=== PATIENT | female | born 1950 | race Caucasian/White ===

== ENCOUNTER → 2023-12-05 13:04 | Outpatient (ROUT) | payer MEDICARE, SELFPAY ==
[2023-12-05 13:17] LABS: Appearance Urine UA CLEAR; Bilirubin Urine UA NEGATIVE (NEGATIVE); Color Urine UA YELLOW; Glucose Urine UA NEGATIVE (Negative); Ketones Urine UA NEGATIVE (NEGATIVE); Leukocyte Esterase Urine UA 1+ (NEGATIVE); Nitrite Urine UA NEGATIVE (Negative); Occult Blood Urine UA NEGATIVE (Negative); Protein Urine UA TRACE (Negative); Urobilinogen Urine UA 0.2 E.U./dL (0.2)
[2023-12-05 13:18] LABS: Urine Volume 10mL (spun); pH Urine UA 5.5 (4.5-8.0)
[2023-12-05 13:25] LABS: Bacteria Urine Moderate (10-30); Culture Indicated Urine Specimen Cultured; RBC Urine None Seen (0-5/HPF); Squamous Epithelial Cell Urine 1-5 /HPF (0-5/HPF); WBC Urine 10-30/HPF (0-5/HPF)
== END ==
PROVIDERS: Visit Provider Family Medicine
DX: R30.0 Dysuria (principal)
CPT/HCPCS: 81001; 87086

== ENCOUNTER 2023-12-31 15:17 | Emergency (ER) | payer MEDICARE, MEDICAID, SELFPAY ==
[2023-12-31] VITALS (31 sets, daily range): BP systolic 96–139; BP diastolic 52–67; PULSE 73–121; RESP 13–41; TEMP 37.2–38.7; O2SAT 89–96; BMI 21.4
[2023-12-31] MEDS: CARBIDOPA-LEVODOPA 25/100 TABLET 2 EACH PO ×2 (16:59→19:33)
[2023-12-31 17:31] LABS: Appearance Urine UA CLEAR; Bilirubin Urine UA NEGATIVE (NEGATIVE); Color Urine UA YELLOW; Glucose Urine UA NEGATIVE (Negative); Ketones Urine UA NEGATIVE (NEGATIVE); Leukocyte Esterase Urine UA 3+ (NEGATIVE); Nitrite Urine UA NEGATIVE (Negative); Occult Blood Urine UA NEGATIVE (Negative); Protein Urine UA NEGATIVE (Negative); Specific Gravity Urine UA 1.015 (1.000-1.035)
--- NOTE | 2023-12-31 17:58 | DI.RAD.S_ITS ---
PROCEDURE: XR CHEST 1V INDICATIONS: suspected sepsis TECHNIQUE: One view of the chest was acquired. COMPARISON: Prior exams were unable to be archived at time of exam. FINDINGS: Surgical changes and devices: Monitoring device is present overlying the left hemithorax with cephalad leads. Lungs and pleura: Lungs are clear. No pleural effusions or pneumothorax. Mediastinum: Mediastinal contours appear normal. Heart size is mildly enlarged. Bones and chest wall: No suspicious bony lesions. Overlying soft tissues appear unremarkable. IMPRESSION: No acute pulmonary process. Dictated by: Kay Jimenez M.D. on 12/31/2023 at 18:52 Approved by: Kay Jimenez M.D. on 12/31/2023 at 18:53
[2023-12-31] MEDS: SODIUM CHLORIDE 0.9% 1,000 ML 1000 ML IV ×2 (18:01→18:38)
[2023-12-31 18:10] LABS: Bacteria Urine Many (>30); Culture Indicated Urine Specimen Cultured; RBC Urine 1-5/HPF (0-5/HPF); Squamous Epithelial Cell Urine 0-1 /HPF (0-5/HPF); Urine Volume 10mL (spun); WBC Urine >100/HPF (0-5/HPF); White Blood Cell Casts Urine 1-5/LPF
[2023-12-31 18:13] LABS: Add Manual Diff / Slide Review NO; Basophils Absolute Auto 0 /uL (0-100); Basophils Percent Auto 0.5 % (0-2); Eosinophils Absolute Auto 300 /uL (0-450); Eosinophils Percent Auto 4.9 % (2-4); Hematocrit 39.3 % (36-46); Lymphocytes Absolute Auto 1800 /uL (1100-4500); Mean Corpuscular HGB Conc 33.1 % (30-36); Mean Corpuscular Volume 93.8 fL (80-100); Monocytes Absolute Auto 600 /uL (0-900); Monocytes Percent Auto 8.9 % (3-14); Neutrophils Absolute Auto 4100 /uL (1500-7000); Neutrophils Percent Auto 59.7 % (50-75); Platelet Count 239 X10^3/uL (150-400); Red Blood Cell Count 4.19 X10^6/uL (4.0-5.2); Red Cell Distribution Width 13.6 % (11.6-14.8); White Blood Cell Count 6.9 X10^3/uL (4.5-11.0)
[2023-12-31 18:14] LABS: INR 0.9 (0.9-1.3); Prothrombin Time 10.7 SECONDS (9.4-12.5)
[2023-12-31 18:17] LABS: Lactate (Lactic Acid) 2.7 mmol/L (0.7-2.1); PTT Partial Thromboplastin Tim 29 SECONDS (25.1-36.5)
[2023-12-31 18:18] LABS: Alanine Aminotransferase 11 IU/L (<35); Albumin 4.3 g/dL (3.5-5.0); Albumin Globulin Ratio 1.5 (1.0-2.8); Alkaline Phosphatase 90 U/L (38-126); Aspartate Aminotransferase 23 IU/L (14-36); BUN Creatinine Ratio 28.8 (6-22); Bilirubin Total 0.7 mg/dL (0.2-1.3); Blood Urea Nitrogen 17 mg/dL (7-17); Calcium 9.5 mg/dL (8.4-10.2); Carbon Dioxide 23 mmol/L (22-32); Chloride 106 mmol/L (98-107); Estimated Glomerular Filt Rate > 60 mL/min (>60); Globulin 2.9 g/dL (1.7-4.1); Glucose 125 mg/dL (80-110); HEMOLYSIS 23 (0-50); Lipase 180 U/L (23-300); Sodium 139 mmol/L (137-145); Total Protein 7.2 g/dL (6.3-8.2)
[2023-12-31] MEDS: ACETAMINOPHEN 325 MG TABLET 650 MG PO (18:27)
--- NOTE | 2023-12-31 18:30 | EKG_ITS ---
[address] [address] Test Date: 2023-12-31 Pat Name: Carissa Evans Department: [facility] Room: Gender: Female Frickertron Checker: CHRISTIAN : 1950 Requested By: Order Number: [id number] Reading MD: Epifanio Fink Measurements Intervals [place] Rate: 107 P: 51 [place]: 134 QRS: 24 QRSD: 82 T: 22 QT: 462 QTc: 616 Interpretive Statements Critical Test Result: Long QTc Sinus tachycardia with occasional premature ventricular complexes Prolonged QT Electronically Signed On 01-07-2024 9:04:31 PDT by Epifanio Fink
[2023-12-31 18:35] LABS: Procalcitonin 0.043 ng/mL (<0.5)
--- NOTE | 2023-12-31 18:43 | ED_ITS ---
HPI - General Adult General Chief complaint: Urogenital-Female Stated complaint: vaginal pain Time Seen by Provider: 12/31/23 18:07 Source: patient and EMS Mode of arrival: EMS History of Present Illness HPI narrative: Patient lives in the assisted living facility. History of Parkinson's with a deep brain stimulator. The stimulator was apparently charging and when it was turned back on again she had stabbing feeling in her vagina. Staff is concerned that she may have a urinary tract infection. Patient seems slightly confused is able to cooperate with exam. She is altered enough that complete review of system is challenging Related Data Home Medications Medication Instructions Recorded Confirmed carbidopa ER 25 mg-levodopa 100 mg 2 tab PO TID 12/31/23 12/31/23 tablet,extended release Previous Rx's Medication Instructions Recorded cephalexin 500 mg capsule 500 mg PO TID #15 caps 12/31/23 Allergies Allergy/AdvReac Type Severity Reaction Status Date / Time Penicillins Allergy Intermediate Hives Verified 12/31/23 15:25 Sulfa (Sulfonamide Allergy Verified 12/31/23 15:25 Antibiotics) Review of Systems Review of Systems ROS Unobtainable: Unobtainable due to mental status/LOC Patient History Medical History (Updated 12/31/23 @ 22:52 by Layla Faith MD) Parkinson's disease Social History (System 12/06/23 @ 07:43 by Laura Avelar) Smoking Status: Former smoker Smoking Status: Former smoker Substance Use Type: does not use Exam Initial Vital Signs Initial Vital Signs: Vital Signs Temperature 98.9 F 12/31/23 15:25 Pulse Rate 108 H 12/31/23 15:25 Respiratory Rate 18 12/31/23 15:25 Blood Pressure 136/63 12/31/23 15:25 Pulse Oximetry 95 12/31/23 15:25 Oxygen Delivery Method Room Air 12/31/23 15:25 General: Frail, chronically ill-appearing woman in no acute distress, picking at bedding, poor eye contact slight confusion able to answer direct questions HEENT: Moist mucous membranes, normal sclera with reactive pupils, Neck: No JVD, supple Respiratory: Lungs are clear to auscultation, no wheezing no rales no rhonchi. Full and symmetrical air movement Cardiac: Tachycardic but otherwise Regular rate and rhythm no murmurs no bruits Abdomen: Soft, mild diffuse tenderness without rebound or guarding. Question of left-sided flank pain External genitalia is evaluated. No obvious rashes, vaginal discharge, inguinal adenopathy Skin: Pale but otherwise Warm and dry, no rashes Neurologic: Patient is moving all extremities. She is baseline parkinsonian tremor Extremities: No trauma, well perfused Psych: Cooperative, slightly confused, poor eye contact Course Orders Ordered: ED Orders 12/31/23 15:24 CBC Auto Diff [Complete Blood Count AUTO DIFF] Stat CMP [Comprehensive Metabolic Panel] Stat Lactate (Lactic Acid) Stat Lipase Stat PTT Partial Thromboplastin Dk Stat Procalcitonin Stat Prothrombin Time INR Stat 12/31/23 16:38 Urinalysis and Microscopic Stat Urine Culture Stat 12/31/23 17:58 XR chest 1V Stat EKG-12 Lead Stat RT Consult Eval and Treat NOW 12/31/23 18:15 Blood Culture Stat 12/31/23 19:10 CT abdomen pelvis w con Stat Hydromorphone HCl (Hydromorphone 0.5 Mg Inj) 0.5 mg IV Q15MIN PRN PRN Reason: Pain, Last Admin: 12/31/23 19:20 Dose: 0.5 mg Documented By: RB Ondansetron HCl (Ondansetron 4 Mg Odt) 4 mg SL NOW PRN PRN Reason: Nausea And Vomiting Discontinued Medications Acetaminophen (Acetaminophen 325 Mg Tablet) 650 mg PO NOW ONE Stop: 12/31/23 18:14 Last Admin: 12/31/23 18:27 Dose: 650 mg Documented By: RB Carbidopa/Levodopa (Carbidopa-Levodopa 25/100 Tablet) 2 each PO NOW ONE Stop: 12/31/23 16:27 Last Admin: 12/31/23 16:59 Dose: 2 each Documented By: RB Carbidopa/Levodopa (Carbidopa-Levodopa 25/100 Tablet) 2 each PO NOW ONE Stop: 12/31/23 19:16 Last Admin: 12/31/23 19:33 Dose: 2 each Documented By: AB Sodium Chloride (Normal Saline 0.9%) 1,000 mls @ 1,000 mls/hr IV BOLUS ONE Stop: 12/31/23 18:57 Last Infusion: 12/31/23 18:38 Dose: Infused Documented By: Admin: 12/31/23 18:01 Dose: 1,000 mls/hr Documented By: RB Sodium Chloride (Normal Saline 0.9%) 1,000 mls @ 1,000 mls/hr IV BOLUS ONE Stop: 12/31/23 19:12 Last Infusion: 12/31/23 20:00 Dose: Infused Documented By: Admin: 12/31/23 18:38 Dose: 1,000 mls/hr Documented By: MARIN Ceftriaxone Sodium 2,000 mg/ (Sodium Chloride) 100 mls @ 200 mls/hr IV NOW ONE Stop: 12/31/23 18:48 Last Infusion: 12/31/23 19:45 Dose: Infused Documented By: Admin: 12/31/23 19:09 Dose: 200 mls/hr Documented By: MARIN Ondansetron HCl (Ondansetron 4 Mg/2 Ml Inj) 4 mg IV NOW PRN PRN Reason: Nausea And Vomiting Last Admin: 12/31/23 19:20 Dose: 4 mg Documented By: MARIN Vital Signs Vital signs: Vital Signs - 8 hr 12/31/23 15:25 12/31/23 15:42 12/31/23 15:46 Temperature 98.9 F Pulse Rate 108 H 95 H 93 H Respiratory Rate 18 15 Blood Pressure 136/63 Pulse Oximetry 95 95 94 Oxygen Delivery Method Room Air 12/31/23 15:46 12/31/23 16:00 12/31/23 16:00 Temperature Pulse Rate 85 Respiratory Rate 13 Blood Pressure 105/52 L 96/53 L Pulse Oximetry 95 Oxygen Delivery Method 12/31/23 16:30 12/31/23 16:32 12/31/23 16:32 Temperature Pulse Rate 86 87 Respiratory Rate 14 22 Blood Pressure 107/54 L Pulse Oximetry 95 95 Oxygen Delivery Method 12/31/23 16:48 12/31/23 16:48 12/31/23 17:07 Temperature Pulse Rate 93 H 99 H Respiratory Rate 18 22 Blood Pressure 132/60 Pulse Oximetry 95 89 L Oxygen Delivery Method 12/31/23 17:30 12/31/23 18:00 12/31/23 18:15 Temperature 101.6 F H Pulse Rate 114 H 121 H 108 H Respiratory Rate 41 H 21 Blood Pressure Pulse Oximetry 94 94 96 Oxygen Delivery Method 12/31/23 18:30 12/31/23 18:34 12/31/23 18:34 Temperature Pulse Rate 107 H 107 H Respiratory Rate 25 H Blood Pressure 139/67 Pulse Oximetry 93 94 Oxygen Delivery Method 12/31/23 18:44 12/31/23 18:45 12/31/23 18:45 Temperature 99.1 F Pulse Rate 101 H Respiratory Rate Blood Pressure 123/64 Pulse Oximetry 94 Oxygen Delivery Method 12/31/23 19:00 12/31/23 19:00 12/31/23 19:15 Temperature Pulse Rate 94 H Respiratory Rate Blood Pressure 129/62 132/61 Pulse Oximetry 94 Oxygen Delivery Method 12/31/23 19:15 12/31/23 19:16 12/31/23 19:30 Temperature 98.9 F Pulse Rate 88 Respiratory Rate Blood Pressure 131/60 Pulse Oximetry 96 Oxygen Delivery Method 12/31/23 19:30 12/31/23 19:46 12/31/23 20:00 Temperature Pulse Rate 86 83 87 Respiratory Rate Blood Pressure Pulse Oximetry 95 93 Oxygen Delivery Method 12/31/23 20:15 12/31/23 20:30 12/31/23 20:45 Temperature Pulse Rate 87 83 82 Respiratory Rate Blood Pressure Pulse Oximetry 96 96 95 Oxygen Delivery Method 12/31/23 21:00 12/31/23 21:15 12/31/23 21:30 Temperature Pulse Rate 82 81 78 Respiratory Rate Blood Pressure Pulse Oximetry 95 96 96 Oxygen Delivery Method 12/31/23 21:45 Temperature Pulse Rate 73 Respiratory Rate Blood Pressure Pulse Oximetry 95 Oxygen Delivery Method Room Air Medical Decision Making Lab Data 12/31/23 15:24 12/31/23 15:24 Labs: Lab Results 12/31/23 12/31/23 12/31/23 Range/Units 15:24 16:38 20:15 WBC 6.9 (4.5-11.0) X10^3/uL RBC 4.19 (4.0-5.2) X10^6/uL Hgb 13.0 (12.0-16.0) g/dL Hct 39.3 (36-46) % MCV 93.8 (80-100) fL MCH 31.0 (26-34) PG MCHC 33.1 (30-36) % RDW 13.6 (11.6-14.8) % Plt Count 239 (150-400) X10^3/uL Neut % (Auto) 59.7 (50-75) % Lymph % (Auto) 26.0 (25-40) % Mcdonald % (Auto) 8.9 (3-14) % Eos % (Auto) 4.9 H (2-4) % Baso % (Auto) 0.5 (0-2) % Neut # (Auto) 4100 (7080-2179) /uL Lymph # (Auto) 1800 (2778-2399) /uL Mcdonald # (Auto) 600 (0-900) /uL Eos # (Auto) 300 (0-450) /uL Baso # (Auto) 0 (0-100) /uL PT 10.7 (9.4-12.5) SECONDS INR 0.9 (0.9-1.3) APTT 29 (25.1-36.5) SECONDS Sodium 139 (137-145) mmol/L Potassium 4.0 (3.4-5.1) mmol/L Chloride 106 (98-107) mmol/L Carbon Dioxide 23 (22-32) mmol/L BUN 17 (7-17) mg/dL Creatinine 0.59 (0.52-1.04) mg/dL Estimated GFR > 60 (>60) mL/min BUN/Creatinine Ratio 28.8 H (6-22) Glucose 125 H (80-110) mg/dL Lactate 2.7 H 1.5 (0.7-2.1) mmol/L Calcium 9.5 (8.4-10.2) mg/dL Total Bilirubin 0.7 (0.2-1.3) mg/dL AST 23 (14-36) IU/L ALT 11 (<35) IU/L Alkaline Phosphatase 90 (38-126) U/L Total Protein 7.2 (6.3-8.2) g/dL Albumin 4.3 (3.5-5.0) g/dL Globulin 2.9 (1.7-4.1) g/dL Albumin/Globulin Ratio 1.5 (1.0-2.8) Lipase 180 (23-300) U/L Procalcitonin 0.043 (<0.5) ng/mL Urine Color Yellow Urine Appearance Clear Urine pH 6.0 (4.5-8.0) Ur Specific [place] 1.015 (1.000-1.035) Urine Protein Negative (Negative) Urine Glucose (UA) Negative (Negative) g/dL Urine Ketones Negative (NEGATIVE) Urine Occult Blood Negative (Negative) Urine Nitrate Negative (Negative) Urine Bilirubin Negative (NEGATIVE) Urine Urobilinogen 1.0 (0.2) E.U./dL Ur Leukocyte Esterase 3+ H (NEGATIVE) Urine RBC 1-5/hpf (0-5/HPF) Urine WBC >100/hpf H (0-5/HPF) Ur Squamous Epith Cells 0-1 /hpf (0-5/HPF) Urine Bacteria Many (>30) H (None) WBC Casts 1-5/lpf H (None) Ur Culture Indicated? Specimen cultured Vol Urine Centrifuged 10ml (spun) Imaging Data CT scan - abdomen/pelvis: Radiologist's Impression: PROCEDURE: CT ABDOMEN PELVIS W CON INDICATIONS: Low abdominal pain, acute delirium, tachycardic fever TECHNIQUE: After the administration of intravenous contrast, axial sections acquired from the lung bases to the pubic symphysis. Coronal and sagittal reformats were performed. For radiation dose reduction, the following was used: automated exposure control, adjustment of mA and/or kV according to patient size. COMPARISON: CT, CT ABDOMEN PELVIS WITH CONTRAST, 12/16/2018, 19:06. FINDINGS: Image quality: Diagnostic. Lower Chest: No significant findings. ABDOMEN: Liver: No solid mass. Liver measures 17.7 cm. Gallbladder: No radiopaque gallstones or wall thickening. Biliary ducts: No biliary dilation. Pancreas: No ductal dilation. Spleen: Size is within normal limits. Adrenal Glands: No adrenal nodules. Kidneys and Ureters: No hydronephrosis. No solid mass. No complex renal cystic lesion which requires follow up. Nonobstructing right renal calculus. Bilateral simple renal cysts. Stomach and Bowel: Normal colonic caliber, without significant wall thickening. Diverticular present without inflammatory change. Moderate colonic stool. Peritoneum: No abnormal intraperitoneal fluid. No free air. Ventral Wall: No significant ventral hernia. Abdominal Nodes: No retroperitoneal or mesenteric adenopathy by size criteria. Vessels: Aorta and inferior vena cava are normal in size. PELVIS: Pelvic Organs: Unremarkable. Bladder: No bladder wall thickening, accounting for underdistention. Pelvic Nodes: No enlarged lymph nodes. Miscellaneous: No inguinal hernias are seen. Bones: No aggressive osseous abnormality. T12 superior endplate deformity appearing chronic. IMPRESSION: Moderate colonic stool. Diverticulosis. Dictated by: Kay Jimenez M.D. on 12/31/2023 at 20:24 MDM Narrative Medical decision making narrative: CC: Vaginal pain after Parkinson's deep brain stimulator restarted, question urinary tract infection Complicating co-morbidities: Parkinson's disease Data collected from: patient, report from staff at her assisted living facility Social determinants of health that may influence the patients condition: Currently lives at assisted living facility Medical records reviewed: Medical records are unavailable Differential considered: UTI, vaginitis, sepsis, intra-abdominal abscess Exam documented above, pertinent findings include: Confused, low abdominal pain Lab Test results independently reviewed as above. Pertinent findings: CBC does not show significant leukocytosis nor anemia Coagulation studies are appropriate Metabolic panel shows no dramatic abnormalities Lactic is elevated at 2.7 Lipase is unremarkable Procalcitonin is appropriate Urine shows white cells bacteria leukocyte esterase Independently reviewed EKG: Sinus rhythm at a rate of 107, long QTC at 6:16 a.m.. PVCs appreciated no acute ischemic changes Imaging studies independently reviewed: Chest x-ray shows stimulator in place no obvious infiltrates, no obvious congestive heart failure cardiomegaly CT scan of the abdomen is done due to the tachycardia and fever appreciated on arrival in the emergency department. CT scan is unremarkable Treatments: Fluids, Zofran, Dilaudid, oral carbidopa levodopa, Tylenol when she spiked a fever, ceftriaxone is added Re-evaluations: While in the emergency department, patient became increasingly tachycardic, febrile lab workup for sepsis was expanded. Prior to discharge patient is much more cognitively appropriate able to interact answer additional questions and understands workup and diagnosis. Discussion: 73-year-old woman with Parkinson's disease brain stimulator in place, on carbidopa levodopa with increased vaginal pain after the brain stimulator battery was charged restarted today. Urine sample does suggest urinary tract infection and she has been treated with ceftriaxone. There was no evidence of sepsis. She is responded to Tylenol. At this point she does appear back to her baseline in his safe for discharge home. We will have her complete 5 days of cephalexin prescription is written. Recommended Tylenol for fever or pain control and return to the emergency department if symptoms are worsening that this point there is no evidence of intra-abdominal abscess, severe sepsis, electrolyte abnormalities or alternate explanations that would require additional imaging or hospitalization. Discharge Plan Departure Patient Disposition: Home Clinical Impression: Prolonged Q-T interval on ECG Urinary tract infection Qualifiers: Urinary tract infection type: acute cystitis Hematuria presence: with hematuria Qualified Code(s): N30.01 - Acute cystitis with hematuria Parkinson's disease Qualifiers: Dyskinesia presence: without dyskinesia Fluctuating manifestations: with fluctuating manifestations Qualified Code(s): G20.A2 - Parkinson's disease without dyskinesia, with fluctuations Instructions: DI for Urinary Tract Infection (UTI) Activity Restrictions/Additional Instructions: Thank you for coming in today You do have a bladder infection. You are given initial antibiotics in the emergency department and do need to complete 5 additional days of cephalexin. While in the emergency department you developed a significant fever with concurrent elevation in your heart rate. Possibility of sepsis was entertained however blood work does not suggest this. With those additional findings CT scan of your abdomen was done and you do not have any evidence of abscess, acute surgical findings or kidney infection. Please make sure that you do complete the cephalexin. If you are having worsening symptoms or new findings please return to the emergency department Prescriptions: New cephalexin 500 mg capsule 500 mg PO TID Qty: 15 0RF No Action carbidopa-levodopa 25-100 mg tablet extended release 2 tab PO TID Stand Alone Forms: Patient Portal/API
[2023-12-31] MEDS: cefTRIAXone 2,000 MG in SODIUM CHLORIDE 0.9% 100 ML 200 MG IV (19:09)
--- NOTE | 2023-12-31 19:10 | DI.CT.S_ITS ---
PROCEDURE: CT ABDOMEN PELVIS W CON INDICATIONS: Low abdominal pain, acute delirium, tachycardic fever TECHNIQUE: After the administration of intravenous contrast, axial sections acquired from the lung bases to the pubic symphysis. Coronal and sagittal reformats were performed. For radiation dose reduction, the following was used: automated exposure control, adjustment of mA and/or kV according to patient size. COMPARISON: CT, CT ABDOMEN PELVIS WITH CONTRAST, 12/16/2018, 19:06. FINDINGS: Image quality: Diagnostic. Lower Chest: No significant findings. ABDOMEN: Liver: No solid mass. Liver measures 17.7 cm. Gallbladder: No radiopaque gallstones or wall thickening. Biliary ducts: No biliary dilation. Pancreas: No ductal dilation. Spleen: Size is within normal limits. Adrenal Glands: No adrenal nodules. Kidneys and Ureters: No hydronephrosis. No solid mass. No complex renal cystic lesion which requires follow up. Nonobstructing right renal calculus. Bilateral simple renal cysts. Stomach and Bowel: Normal colonic caliber, without significant wall thickening. Diverticular present without inflammatory change. Moderate colonic stool. Peritoneum: No abnormal intraperitoneal fluid. No free air. Ventral Wall: No significant ventral hernia. Abdominal Nodes: No retroperitoneal or mesenteric adenopathy by size criteria. Vessels: Aorta and inferior vena cava are normal in size. PELVIS: Pelvic Organs: Unremarkable. Bladder: No bladder wall thickening, accounting for underdistention. Pelvic Nodes: No enlarged lymph nodes. Miscellaneous: No inguinal hernias are seen. Bones: No aggressive osseous abnormality. T12 superior endplate deformity appearing chronic. IMPRESSION: Moderate colonic stool. Diverticulosis. Dictated by: Kay Jimenez M.D. on 12/31/2023 at 20:24 Approved by: Kay Jimenez M.D. on 12/31/2023 at 20:26
[2023-12-31] MEDS: ONDANSETRON 4 MG/2 ML INJ IV (19:20)
[2023-12-31] MEDS: HYDROMORPHONE 0.5 MG INJ IV (19:20)
[2023-12-31 19:43] LABS: Reflexed Lactate in 2 Hours Y
[2023-12-31 20:54] LABS: Lactate 2HR (Lactic Acid Rflx) 1.5 mmol/L (0.7-2.1)
--- NOTE | 2023-12-31 23:28 | PC.NURSE ---
Pt given crackers and apple juice per her request. Assisted pt to call cab to return to [facility]. [facility] did not have a electric train driver, and her POA is over in [place] it is over 40 minutes away. Pt states she will pay with her credit card.
== END 2023-12-31 23:30 | disposition home or self-care (01) ==
PROVIDERS: Emergency Medicine; Emergency Provider Emergency Medicine
DX: N30.01 Acute cystitis with hematuria (principal); G20.A2 Parkinson's disease without dyskinesia, with fluctuations; R94.31 Abnormal electrocardiogram [ECG] [EKG]
CPT/HCPCS: 36415; 51701; 71045; 74177; 80053; 81001; 83605; 83690; 84145; 85025; 85610; 85730; 87040; 87077; 87086; 93005; 96361; 96365; 96375; 99284; J0696; J1170; J2405; Q9967

== ENCOUNTER 2024-01-01 22:52 | Emergency (ER) | payer MEDICARE, SELFPAY ==
[2024-01-01 23:02] VITALS: BP 130/70; PULSE 90; RESP 22; TEMP 36.6; O2SAT 97; BMI 23.4
--- NOTE | 2024-01-01 23:22 | ED_ITS ---
HPI - General Adult General Chief complaint: Fever Stated complaint: known UTI/feels worse/febrile/shakey Time Seen by Provider: 01/01/24 23:02 Source: patient and EMS Mode of arrival: EMS History of Present Illness HPI narrative: Patient is a 73-year-old female. Has a history of Parkinson's disease. Was seen here in the emergency department yesterday. Was diagnosed with a urinary tract infection. He was given antibiotics here in the ER and also sent home with antibiotics. She was sent home with Keflex. She states that after she took a dose of the Keflex this evening/earlier today she stated that she started to become shaky, she was having quite a bit of pain in her vaginal region. Quite a bit of dysuria and hesitancy. Was reported to have fevers at her living facility but was afebrile here. Related Data Home Medications Medication Instructions Recorded Confirmed carbidopa ER 25 mg-levodopa 100 mg 2 tab PO TID 12/31/23 12/31/23 tablet,extended release Previous Rx's Medication Instructions Recorded cephalexin 500 mg capsule 500 mg PO TID #15 caps 12/31/23 nitrofurantoin 100 mg PO Q12H 5 days #10 caps 01/02/24 monohydrate/macrocrystals 100 mg capsule (Macrobid) Allergies Allergy/AdvReac Type Severity Reaction Status Date / Time Penicillins Allergy Intermediate Hives Verified 12/31/23 15:25 Sulfa (Sulfonamide Allergy Verified 12/31/23 15:25 Antibiotics) Review of Systems Review of Systems ROS Unobtainable: All systems reviewed & are unremarkable except as noted in HPI and below Patient History Medical History Parkinson's disease Social History Smoking Status: Former smoker Smoking Status: Former smoker Substance Use Type: does not use Exam Initial Vital Signs Initial Vital Signs: Vital Signs Temperature 97.9 F 01/01/24 23:02 Pulse Rate 90 01/01/24 23:02 Respiratory Rate 22 01/01/24 23:02 Blood Pressure 130/70 01/01/24 23:02 Pulse Oximetry 97 01/01/24 23:02 Oxygen Delivery Method Room Air 01/01/24 23:02 Const General: cooperative, comfortable and No ill appearing [facility] Head: normal to inspection and normocephalic Resp Effort & Inspection: normal respiratory effort Auscultation: clear to auscultation bilaterally Cardio Rate: regular rate Rhythm: regular rhythm GI Inspection: non-distended Palpation: soft and No tender Skin General: no rashes or lesions noted Neuro General: patient alert, patient awake and moves all extremities Extrem General: capillary refill normal Course Orders Ordered: ED Orders 01/01/24 22:59 Blood Culture Stat 01/01/24 23:11 Complete Blood Count AUTO DIFF Stat Comprehensive Metabolic Panel Stat Lactate (Lactic Acid) Stat Lipase Stat Procalcitonin Stat Discontinued Medications Hydromorphone HCl (Hydromorphone 0.5 Mg Inj) 0.5 mg IV NOW ONE Stop: 01/01/24 23:23 Last Admin: 01/01/24 23:26 Dose: 0.5 mg Documented By: TOÑO Sodium Chloride (Normal Saline 0.9%) 1,000 mls @ 500 mls/hr IV BOLUS ONE Stop: 01/02/24 01:03 Last Infusion: 01/02/24 01:21 Dose: Infused Documented By: Admin: 01/01/24 23:26 Dose: 500 mls/hr Documented By: TOÑO Phenazopyridine HCl (Phenazopyridine 100 Mg Tablet) 100 mg PO NOW ONE Stop: 01/02/24 01:14 Last Admin: 01/02/24 01:35 Dose: 100 mg Documented By: RACHAEL Vital Signs Vital signs: Vital Signs - 8 hr 01/01/24 23:02 01/01/24 23:30 01/01/24 23:59 Temperature 97.9 F Pulse Rate 90 95 H 90 Respiratory Rate 22 15 Blood Pressure 130/70 Pulse Oximetry 97 97 91 Oxygen Delivery Method Room Air 01/01/24 23:59 01/02/24 00:00 01/02/24 00:00 Temperature Pulse Rate 90 Respiratory Rate 17 Blood Pressure 123/61 119/60 Pulse Oximetry 91 Oxygen Delivery Method 01/02/24 00:30 01/02/24 01:00 01/02/24 01:23 Temperature Pulse Rate 80 85 Respiratory Rate 15 23 Blood Pressure 128/61 Pulse Oximetry 93 95 Oxygen Delivery Method 01/02/24 01:23 01/02/24 01:30 01/02/24 01:40 Temperature Pulse Rate 83 83 Respiratory Rate 15 16 Blood Pressure 134/62 Pulse Oximetry Oxygen Delivery Method 01/02/24 01:40 01/02/24 02:00 01/02/24 02:00 Temperature Pulse Rate 81 78 Respiratory Rate 17 19 Blood Pressure 119/57 L Pulse Oximetry 95 98 Oxygen Delivery Method 01/02/24 02:00 01/02/24 02:30 01/02/24 02:30 Temperature Pulse Rate 78 79 Respiratory Rate 19 13 Blood Pressure 133/63 Pulse Oximetry 98 98 Oxygen Delivery Method 01/02/24 03:05 Temperature 98.1 F Pulse Rate Respiratory Rate Blood Pressure Pulse Oximetry Oxygen Delivery Method Medical Decision Making Medical Records Medical records reviewed: Yes I reviewed the patient's medical records. Lab Data Lab results reviewed: Yes I reviewed the patient's lab results. 01/01/24 23:11 01/01/24 23:11 Labs: Lab Results 01/01/24 Range/Units 23:11 WBC 7.7 (4.5-11.0) X10^3/uL RBC 3.89 L (4.0-5.2) X10^6/uL Hgb 12.2 (12.0-16.0) g/dL Hct 36.1 (36-46) % MCV 92.7 (80-100) fL MCH 31.4 (26-34) PG MCHC 33.8 (30-36) % RDW 13.5 (11.6-14.8) % Plt Count 220 (150-400) X10^3/uL Neut % (Auto) 47.3 L (50-75) % Lymph % (Auto) 36.6 (25-40) % [place] % (Auto) 9.6 (3-14) % Eos % (Auto) 5.6 H (2-4) % Baso % (Auto) 0.9 (0-2) % Neut # (Auto) 3600 (0981-2038) /uL Lymph # (Auto) 2800 (9719-4493) /uL [place] # (Auto) 700 (0-900) /uL Eos # (Auto) 400 (0-450) /uL Baso # (Auto) 100 (0-100) /uL Sodium 136 L (137-145) mmol/L Potassium 4.3 (3.4-5.1) mmol/L Chloride 106 (98-107) mmol/L Carbon Dioxide 23 (22-32) mmol/L BUN 13 (7-17) mg/dL Creatinine 0.73 (0.52-1.04) mg/dL Estimated GFR > 60 (>60) mL/min BUN/Creatinine Ratio 17.8 (6-22) Glucose 83 (80-110) mg/dL Lactate 1.7 (0.7-2.1) mmol/L Calcium 9.4 (8.4-10.2) mg/dL Total Bilirubin 0.6 (0.2-1.3) mg/dL AST 29 (14-36) IU/L ALT 10 (<35) IU/L Alkaline Phosphatase 88 (38-126) U/L Total Protein 7.1 (6.3-8.2) g/dL Albumin 4.0 (3.5-5.0) g/dL Globulin 3.1 (1.7-4.1) g/dL Albumin/Globulin Ratio 1.3 (1.0-2.8) Lipase 272 D (23-300) U/L Procalcitonin 0.062 (<0.5) ng/mL MDM Narrative Medical decision making narrative: Vital signs are unremarkable. Labs are unremarkable. She was not retaining urine. She does seem to have quite a bit of hesitancy and urgency without actually urinating. I suspect that this is related to her urinary tract infection. She was concerned that maybe she was reaction to her medications. We will switch her to Macrobid. Urine culture from yesterday is still pending. No indication for admission to the hospital. Will discharge home. She was given return precautions. Discharge Plan Departure Patient Disposition: Home Clinical Impression: Dysuria Instructions: DI for Urinary Tract Infection (UTI), DI for Dysuria -- Adult Activity Restrictions/Additional Instructions: Recommend stop taking the Keflex that you were given yesterday for the urinary tract infection and start taking the Macrobid/nitrofurantoin that you were given a prescription for this evening. Contact your primary doctor for follow-up. Prescriptions: New nitrofurantoin monohyd/m-cryst [Macrobid] 100 mg capsule 100 mg PO Q12H 5 Days Qty: 10 0RF Rx Instructions: must administer with a meal/food No Action carbidopa-levodopa 25-100 mg tablet extended release 2 tab PO TID cephalexin 500 mg capsule 500 mg PO TID Qty: 15 0RF Stand Alone Forms: Patient Portal/API
[2024-01-01] MEDS: HYDROMORPHONE 0.5 MG INJ IV (23:26)
[2024-01-01] MEDS: SODIUM CHLORIDE 0.9% 1,000 ML 500 ML IV (23:26)
[2024-01-01 23:30] VITALS: PULSE 95; O2SAT 97
[2024-01-01 23:30] LABS: Add Manual Diff / Slide Review NO; Basophils Absolute Auto 100 /uL (0-100); Basophils Percent Auto 0.9 % (0-2); Eosinophils Absolute Auto 400 /uL (0-450); Eosinophils Percent Auto 5.6 % (2-4); Hematocrit 36.1 % (36-46); Hemoglobin 12.2 g/dL (12.0-16.0); Lymphocytes Absolute Auto 2800 /uL (1100-4500); Lymphocytes Percent Auto 36.6 % (25-40); Mean Corpuscular HGB Conc 33.8 % (30-36); Mean Corpuscular Hemoglobin 31.4 PG (26-34); Mean Corpuscular Volume 92.7 fL (80-100); Monocytes Absolute Auto 700 /uL (0-900); Monocytes Percent Auto 9.6 % (3-14); Neutrophils Absolute Auto 3600 /uL (1500-7000); Neutrophils Percent Auto 47.3 % (50-75); Platelet Count 220 X10^3/uL (150-400); Red Blood Cell Count 3.89 X10^6/uL (4.0-5.2); Red Cell Distribution Width 13.5 % (11.6-14.8); White Blood Cell Count 7.7 X10^3/uL (4.5-11.0)
[2024-01-01 23:40] LABS: Alanine Aminotransferase 10 IU/L (<35); Albumin Globulin Ratio 1.3 (1.0-2.8); Alkaline Phosphatase 88 U/L (38-126); Aspartate Aminotransferase 29 IU/L (14-36); BUN Creatinine Ratio 17.8 (6-22); Bilirubin Total 0.6 mg/dL (0.2-1.3); Blood Urea Nitrogen 13 mg/dL (7-17); Calcium 9.4 mg/dL (8.4-10.2); Carbon Dioxide 23 mmol/L (22-32); Chloride 106 mmol/L (98-107); Estimated Glomerular Filt Rate > 60 mL/min (>60); Globulin 3.1 g/dL (1.7-4.1); Glucose 83 mg/dL (80-110); HEMOLYSIS 30 (0-50); Lactate (Lactic Acid) 1.7 mmol/L (0.7-2.1); Lipase 272 U/L (23-300); Potassium 4.3 mmol/L (3.4-5.1); Sodium 136 mmol/L (137-145); Total Protein 7.1 g/dL (6.3-8.2)
[2024-01-01 23:56] LABS: Procalcitonin 0.062 ng/mL (<0.5)
[2024-01-01 23:59] VITALS: BP 123/61; PULSE 90; RESP 15; O2SAT 91
[2024-01-02] VITALS (9 sets, daily range): BP systolic 119–134; BP diastolic 57–63; PULSE 78–90; RESP 13–23; TEMP 36.7; O2SAT 91–98
[2024-01-02] MEDS: PHENAZOPYRIDINE 100 MG TABLET PO (01:35)
== END 2024-01-02 03:07 | disposition home or self-care (01) ==
PROVIDERS: Emergency Provider Emergency Medicine
DX: R30.0 Dysuria (principal); R39.11 Hesitancy of micturition; R39.15 Urgency of urination
CPT/HCPCS: 36415; 51798; 80053; 83605; 83690; 84145; 85025; 87040; 96374; 99284; J1170

== ENCOUNTER 2024-01-09 18:24 | Emergency (ER) | payer MEDICARE, MEDICAID, SELFPAY ==
[2024-01-09] VITALS (12 sets, daily range): BP systolic 123–169; BP diastolic 61–81; PULSE 72–94; RESP 12–16; TEMP 36.3–36.6; O2SAT 93–100; BMI 21.0
[2024-01-09 19:16] LABS: Appearance Urine UA CLEAR; Bilirubin Urine UA NEGATIVE (NEGATIVE); Color Urine UA YELLOW; Glucose Urine UA NEGATIVE (Negative); Ketones Urine UA NEGATIVE (NEGATIVE); Leukocyte Esterase Urine UA NEGATIVE (NEGATIVE); Nitrite Urine UA NEGATIVE (Negative); Occult Blood Urine UA NEGATIVE (Negative); Protein Urine UA NEGATIVE (Negative); Urobilinogen Urine UA 0.2 E.U./dL (0.2)
[2024-01-09 19:17] LABS: pH Urine UA 6.5 (4.5-8.0)
[2024-01-09] MEDS: PHENAZOPYRIDINE 100 MG TABLET PO (19:20)
--- NOTE | 2024-01-09 19:23 | DI.CT.S_ITS ---
PROCEDURE: CT KIDNEY URETER BLADDER (KUB) INDICATIONS: Concern for ureteral stone TECHNIQUE: Axial sections were acquired from the lung bases to the pubic symphysis. Coronal and sagittal reformats were performed. For radiation dose reduction, the following was used: automated exposure control, adjustment of mA and/or kV according to patient size. COMPARISON: None. FINDINGS: Image quality: Diagnostic. Lower Chest: No significant findings. URINARY: Right Kidney: 3 mm right mid kidney nonobstructive calculus. No hydronephrosis Right Ureter: No hydroureter. Left Kidney: Punctate upper pole collecting system nonobstructive calculus measuring 1 mm or less. Left Ureter: No hydroureter. Bladder: Normal wall thickness. No stones. ABDOMEN: Liver: No contour-deforming solid mass. Gallbladder: No radiopaque gallstones or wall thickening. Biliary ducts: No biliary dilation. Pancreas: No ductal dilation. Spleen: Size is within normal limits. Adrenal Glands: No adrenal nodules. Stomach and Bowel: Normal colonic caliber, without significant wall thickening. Peritoneum: No abnormal intraperitoneal fluid. No free air. Ventral Wall: No hernia. Abdominal Nodes: No enlarged retroperitoneal or mesenteric lymph nodes. Vessels: Aorta and inferior vena cava are normal in size. PELVIS: Pelvic Organs: Unremarkable. Pelvic Nodes: Unremarkable. Miscellaneous: No inguinal hernias are seen. Bones: Unremarkable. IMPRESSION: No obstructing stones or hydronephrosis. No ureteral dilatation found. Dictated by: Crow Pereira M.D. on 01/09/2024 at 20:54 Approved by: Crow Pereira M.D. on 01/09/2024 at 20:56
[2024-01-09 19:26] LABS: Bacteria Urine Occasional (0-1); Culture Indicated Urine Cult Not Indicated; RBC Urine 0-1/HPF (0-5/HPF); Squamous Epithelial Cell Urine 0-1 /HPF (0-5/HPF); Urine Volume 10mL (spun); WBC Urine 0-1/HPF (0-5/HPF)
[2024-01-09] MEDS: HYDROCODONE/ACET 5/325 TABLET 1 TAB PO (19:26)
[2024-01-09] MEDS: HYDROMORPHONE 1 MG INJ 0.5 MG IM (20:04)
[2024-01-09] MEDS: KETOROLAC 30 MG/ML VIAL IM (20:04)
--- NOTE | 2024-01-09 21:53 | ED_ITS ---
HPI - General Adult General Chief complaint: Urogenital-Female Stated complaint: UTI Time Seen by Provider: 01/09/24 18:26 Source: patient and EMS Mode of arrival: EMS History of Present Illness HPI narrative: Patient is a 73-year-old female. History of Parkinson's disease. Arrives by EMS for evaluation of concern of pelvic pain and recurrent UTI. She has been seen here in the emergency department 2 times in the past couple weeks. I evaluated her here approximately 10-14 days ago. She has been on 2 separate antibiotics. She was just completed the 2nd course of Macrobid. She continues to have dysuria, urinary frequency, urgency and quite a bit of pelvic pain. Related Data Home Medications Medication Instructions Recorded Confirmed carbidopa ER 25 mg-levodopa 100 mg 2 tab PO TID 12/31/23 12/31/23 tablet,extended release Previous Rx's Medication Instructions Recorded cephalexin 500 mg capsule 500 mg PO TID #15 caps 12/31/23 Allergies Allergy/AdvReac Type Severity Reaction Status Date / Time Penicillins Allergy Intermediate Hives Verified 01/09/24 18:36 Sulfa (Sulfonamide Allergy Verified 01/09/24 18:36 Antibiotics) Review of Systems Constitutional Constitutional: Reports system reviewed and no additional complaints, except as documented Gastrointestinal Gastrointestinal: Reports system reviewed and no additional complaints, except as documented Genitourinary Genitourinary: Reports system reviewed and no additional complaints, except as documented Musculoskeletal Musculoskeletal: Reports system reviewed and no additional complaints, except as documented Integumentary/Breasts Skin/Breast: Reports system reviewed and no additional complaints, except as documented Patient History Medical History Parkinson's disease Social History Smoking Status: Former smoker Smoking Status: Former smoker alcohol intake frequency: holidays/special occasions only Substance Use Type: does not use Exam Initial Vital Signs Initial Vital Signs: Vital Signs Blood Pressure 127/65 01/09/24 18:26 HENMT Head: normal to inspection and normocephalic Resp Effort & Inspection: normal respiratory effort GI Inspection: normal to inspection and non-distended Palpation: soft, No firm and No tender Skin General: no rashes or lesions noted Neuro General: patient alert and patient awake Course Orders Ordered: ED Orders 01/09/24 19:08 Urinalysis and Microscopic Stat Urine Culture Stat 01/09/24 19:23 CT kidney ureter bladder (KUB) Stat Discontinued Medications Hydrocodone Bitart/Acetaminophen (Hydrocodone/Acet 5/325 Tablet) 1 tab PO NOW ONE Stop: 01/09/24 19:24 Last Admin: 01/09/24 19:26 Dose: 1 tab Documented By: Carbidopa/Levodopa (Carbidopa-Levodopa 25/100 Tablet) 2 each PO NOW ONE Stop: 01/09/24 22:04 Last Admin: 01/09/24 22:16 Dose: 2 each Documented By: Hydromorphone HCl (Hydromorphone 1 Mg Inj) 0.5 mg IM NOW ONE Stop: 01/09/24 19:58 Last Admin: 01/09/24 20:04 Dose: 0.5 mg Documented By: Ketorolac Tromethamine (Ketorolac 30 Mg/Ml Vial) 30 mg IM NOW ONE Stop: 01/09/24 19:58 Last Admin: 01/09/24 20:04 Dose: 30 mg Documented By: Phenazopyridine HCl (Phenazopyridine 100 Mg Tablet) 100 mg PO NOW ONE Stop: 01/09/24 19:18 Last Admin: 01/09/24 19:20 Dose: 100 mg Documented By: Vital Signs Vital signs: Vital Signs - 8 hr 01/09/24 18:26 01/09/24 18:27 01/09/24 18:30 Temperature 97.8 F Pulse Rate 72 72 Respiratory Rate 12 Blood Pressure 127/65 127/65 Pulse Oximetry 98 97 Oxygen Delivery Method Room Air 01/09/24 18:30 01/09/24 18:30 01/09/24 19:13 Temperature Pulse Rate 72 83 Respiratory Rate Blood Pressure 123/61 Pulse Oximetry 99 100 Oxygen Delivery Method 01/09/24 19:14 01/09/24 19:14 01/09/24 20:51 Temperature Pulse Rate 86 90 Respiratory Rate Blood Pressure 140/79 Pulse Oximetry 94 94 Oxygen Delivery Method 01/09/24 20:52 01/09/24 20:52 01/09/24 21:00 Temperature Pulse Rate 90 94 H Respiratory Rate Blood Pressure 130/63 Pulse Oximetry 94 93 Oxygen Delivery Method 01/09/24 21:00 01/09/24 21:36 01/09/24 21:37 Temperature Pulse Rate 93 H 92 H Respiratory Rate Blood Pressure 138/65 Pulse Oximetry 95 96 Oxygen Delivery Method 01/09/24 21:37 01/09/24 22:00 01/09/24 22:00 Temperature Pulse Rate 88 Respiratory Rate Blood Pressure 169/81 H 164/77 H Pulse Oximetry 98 Oxygen Delivery Method 01/09/24 22:30 Temperature 97.3 F L Pulse Rate 90 Respiratory Rate 16 Blood Pressure 164/78 H Pulse Oximetry 96 Oxygen Delivery Method Room Air Medical Decision Making Medical Records Medical records reviewed: Yes I reviewed the patient's medical records. Lab Data Lab results reviewed: Yes I reviewed the patient's lab results. Labs: Lab Results 01/09/24 Range/Units 19:08 Urine Color Yellow Urine Appearance Clear Urine pH 6.5 (4.5-8.0) Ur Specific [place] 1.010 (1.000-1.035) Urine Protein Negative (Negative) Urine Glucose (UA) Negative (Negative) g/dL Urine Ketones Negative (NEGATIVE) Urine Occult Blood Negative (Negative) Urine Nitrate Negative (Negative) Urine Bilirubin Negative (NEGATIVE) Urine Urobilinogen 0.2 (0.2) E.U./dL Ur Leukocyte Esterase Negative (NEGATIVE) Urine RBC 0-1/hpf (0-5/HPF) Urine WBC 0-1/hpf (0-5/HPF) Ur Squamous Epith Cells 0-1 /hpf (0-5/HPF) Urine Bacteria Occasional (0-1) (None) Ur Culture Indicated? Cult not indicated Vol Urine Centrifuged 10ml (spun) Imaging Data CT scan - abdomen/pelvis: Radiologist's Impression: PROCEDURE: CT KIDNEY URETER BLADDER (KUB) INDICATIONS: Concern for ureteral stone TECHNIQUE: Axial sections were acquired from the lung bases to the pubic symphysis. Coronal and sagittal reformats were performed. For radiation dose reduction, the following was used: automated exposure control, adjustment of mA and/or kV according to patient size. COMPARISON: None. FINDINGS: Image quality: Diagnostic. Lower Chest: No significant findings. URINARY: Right Kidney: 3 mm right mid kidney nonobstructive calculus. No hydronephrosis Right Ureter: No hydroureter. Left Kidney: Punctate upper pole collecting system nonobstructive calculus measuring 1 mm or less. Left Ureter: No hydroureter. Bladder: Normal wall thickness. No stones. ABDOMEN: Liver: No contour-deforming solid mass. Gallbladder: No radiopaque gallstones or wall thickening. Biliary ducts: No biliary dilation. Pancreas: No ductal dilation. Spleen: Size is within normal limits. Adrenal Glands: No adrenal nodules. Stomach and Bowel: Normal colonic caliber, without significant wall thickening. Peritoneum: No abnormal intraperitoneal fluid. No free air. Ventral Wall: No hernia. Abdominal Nodes: No enlarged retroperitoneal or mesenteric lymph nodes. Vessels: Aorta and inferior vena cava are normal in size. PELVIS: Pelvic Organs: Unremarkable. Pelvic Nodes: Unremarkable. Miscellaneous: No inguinal hernias are seen. Bones: Unremarkable. IMPRESSION: No obstructing stones or hydronephrosis. No ureteral dilatation found. MDM Narrative Medical decision making narrative: Urinalysis today is not consistent with a urinary tract infection. Review her medical record shows that the urine culture had to be sent to a reference laboratory and this is yet to be resulted. She has a benign abdominal exam. Tried to urinate multiple times here in the ER. Was successful on a couple occasions however both times her postvoid residual showed greater than 300 cc of urine and potentially as much as 400-500 cc. A urinary catheter was placed. For concerns of urinary retention which very well could be causing quite a bit of her discomfort. Her CT scan did not show any signs of kidney stones. I do feel that we should hold on any antibiotics for now as I do not have a defin itive source for an infection in her urine does not appear to be infected. Recommended that she follow-up with urology. Will discharge home with a urinary catheter in place. Patient was given return precautions. Discharge Plan Departure Patient Disposition: Home Clinical Impression: Pain pelvic, Acute urinary retention Instructions: How to Care for Your Starr Catheter -- Female, DI for Urinary Retention in Women Activity Restrictions/Additional Instructions: Continue to take all of your medications as directed. You can continue to take the Pyridium as needed. There was no indication today on your urinalysis that there is an infection. I do recommend that you follow-up with Urology. You can contact them the number provided below for follow-up in the next week. Return to the emergency department for new symptoms. Prescriptions: No Action carbidopa-levodopa 25-100 mg tablet extended release 2 tab PO TID cephalexin 500 mg capsule 500 mg PO TID Qty: 15 0RF Referrals: Ge Martell DO [Physician] - Stand Alone Forms: Patient Portal/API
[2024-01-09] MEDS: CARBIDOPA-LEVODOPA 25/100 TABLET 2 EACH PO (22:16)
--- NOTE | 2024-01-09 22:51 | PC.NURSE ---
This RN spoke with Katerina Hernandez RN for discharge plan report. Pt discharged home with catheter in place. Pt discharged by another waitstaff.
== END 2024-01-09 22:53 | disposition home or self-care (01) ==
PROVIDERS: Emergency Provider Emergency Medicine
DX: R10.2 Pelvic and perineal pain (principal); R33.8 Other retention of urine; G20.A1 Parkinson's disease without dyskinesia, without mention of fluctuations
CPT/HCPCS: 51798; 74176; 81001; 87086; 96372; 99284; J1170; J1885

== ENCOUNTER 2024-01-10 06:01 | Emergency (ER) | payer MEDICARE, MEDICAID, SELFPAY ==
[2024-01-10 06:08] VITALS: BP 164/68; PULSE 85; RESP 18; TEMP 36.5; O2SAT 99
--- NOTE | 2024-01-10 06:08 | ED.GENADULT ---
HPI - General Adult General Chief complaint: Medical Clearance Stated complaint: catherer pinched off Time Seen by Provider: 01/10/24 06:07 Source: patient and EMS Mode of arrival: EMS Limitations: no limitations History of Present Illness HPI narrative: Patient is a 73-year-old female who I evaluated the beginning of my shift just a few hours ago. Was discharged home with pelvic pain and urinary retention. She returns to the emergency department this morning. They initial complaints were that she thought that the catheter was ?pinched? she thought that she was wet however upon further questioning this she stated that she never mentioned that she thought that there was a catheter problem. She was also having some tingling in both of her hands. She received some ibuprofen from the facility. She states the tingling is improved but not completely resolved. Related Data Home Medications Medication Instructions Recorded Confirmed carbidopa ER 25 mg-levodopa 100 mg 2 tab PO TID 12/31/23 12/31/23 tablet,extended release Previous Rx's Medication Instructions Recorded cephalexin 500 mg capsule 500 mg PO TID #15 caps 12/31/23 Allergies Allergy/AdvReac Type Severity Reaction Status Date / Time Penicillins Allergy Intermediate Hives Verified 01/09/24 18:36 Sulfa (Sulfonamide Allergy Verified 01/09/24 18:36 Antibiotics) Review of Systems Review of Systems Narrative: See HPI Patient History Medical History Parkinson's disease Social History Smoking Status: Former smoker Smoking Status: Former smoker alcohol intake frequency: holidays/special occasions only Substance Use Type: does not use Exam Initial Vital Signs Initial Vital Signs: Vital Signs Temperature 97.7 F 01/10/24 06:08 Pulse Rate 85 01/10/24 06:08 Respiratory Rate 18 01/10/24 06:08 Blood Pressure 164/68 H 01/10/24 06:08 Pulse Oximetry 99 01/10/24 06:08 Oxygen Delivery Method Room Air 01/10/24 06:08 Cardio Pulses: radial pulses present bilaterally Other: Starr catheter in place in his draining appropriately. Skin General: no rashes or lesions noted Neuro General: patient alert and patient awake Course Vital Signs Vital signs: Vital Signs - 8 hr 08/29/24 06:08 Temperature 97.7 F Pulse Rate 85 Respiratory Rate 18 Blood Pressure 164/68 H Pulse Oximetry 99 Oxygen Delivery Method Room Air Medical Decision Making Medical Records Medical records reviewed: Yes I reviewed the patient's medical records. [facility] Narrative Medical decision making narrative: Her Starr catheter is draining appropriately. She was not wet in her perineal region. There does not appear to be any malfunction of the Starr catheter. Tingling in both of her hands. She states that it was equal bilateral. It is improving. Low suspicion for ACS/CVA/TIA. They have a very high suspicion that there is an anxiety component to the patient's symptoms that brought her into the emergency department frequently over the past several weeks. No further workup is required in the emergency department however I do recommend follow-up with her primary care doctor and also continuing with the plan of following up with Urology. Discharge Plan Departure Patient Disposition: Home Clinical Impression: Distal paresthesia Activity Restrictions/Additional Instructions: Your Starr catheter appears to be working appropriately. There does not appear to be any leakage. It is draining appropriately. Your labs from the last visit earlier today are all unremarkable. I recommend that the facility contact your primary care doctor to have you evaluated later today and I also recommend that we continue with the plan for you to follow-up with urology. Prescriptions: No Action carbidopa-levodopa 25-100 mg tablet extended release 2 tab PO TID cephalexin 500 mg capsule 500 mg PO TID Qty: 15 0RF Stand Alone Forms: Patient Portal/API
[2024-01-10 07:51] VITALS: BP 147/68; PULSE 78; RESP 17; O2SAT 98
--- NOTE | 2024-01-10 07:56 | PC.NURSE ---
Report attempted to [place], this EDRN left a message with nursing staff voicemail.
[2024-01-10 07:57] VITALS: TEMP 37.1
== END 2024-01-10 07:58 | disposition home or self-care (01) ==
PROVIDERS: Emergency Provider Emergency Medicine
DX: R20.2 Paresthesia of skin (principal)
CPT/HCPCS: 99281

== ENCOUNTER → 2024-02-14 09:42 | Outpatient (CLI) | payer MEDICARE, MEDICAID, SELFPAY | PROVIDERS: Referring Provider Urology; Visit Provider Urology | DX: R39.9 Unspecified symptoms and signs involving the genitourinary system (principal) | CPT/HCPCS: 87077; 87086 ==

== ENCOUNTER → 2024-03-05 19:22 | Outpatient (ROUT) | payer MEDICARE, MEDICAID, SELFPAY ==
[2024-03-05 19:51] LABS: Appearance Urine UA CLOUDY; Bilirubin Urine UA NEGATIVE (NEGATIVE); Color Urine UA ORANGE; Glucose Urine UA 1+ g/dL (Negative); Ketones Urine UA TRACE (NEGATIVE); Leukocyte Esterase Urine UA 1+ (NEGATIVE); Nitrite Urine UA POSITIVE (Negative); Occult Blood Urine UA NEGATIVE (Negative); Protein Urine UA 2+ (Negative)
[2024-03-05 20:22] LABS: Bacteria Urine Many (>30); Culture Indicated Urine Specimen Cultured; RBC Urine None Seen (0-5/HPF); Squamous Epithelial Cell Urine None Seen (0-5/HPF); Urine Volume 10mL (spun); WBC Urine 5-10/HPF (0-5/HPF)
== END ==
PROVIDERS: Visit Provider Registered Nurse
DX: R39.9 Unspecified symptoms and signs involving the genitourinary system (principal)
CPT/HCPCS: 81001; 87077; 87086; 87186

== ENCOUNTER 2024-04-05 13:46 | Emergency (ER) | payer MEDICARE, MEDICAID, SELFPAY ==
[2024-04-05] VITALS (34 sets, daily range): BP systolic 100–140; BP diastolic 52–119; PULSE 83–110; RESP 13–38; TEMP 36–37.8; O2SAT 89–97; BMI 20.3
--- NOTE | 2024-04-05 13:57 | DI.CT.S_ITS ---
PROCEDURE: CT KIDNEY URETER BLADDER (KUB) INDICATIONS: r/o kidney stone, unable to urinate TECHNIQUE: Axial sections were acquired from the lung bases to the pubic symphysis. Coronal and sagittal reformats were performed. For radiation dose reduction, the following was used: automated exposure control, adjustment of mA and/or kV according to patient size. COMPARISON: [facility], CT, CT KIDNEY URETER BLADDER (KUB), 01/09/2024, 19:27. FINDINGS: Image quality: Diagnostic. Lower Chest: No significant findings. URINARY: Kidney/ureter: Punctate nonobstructing bilateral renal stones are again noted. No hydronephrosis. No perinephric stranding. Bilateral ureters are normal course and caliber without ureteral stone. No periureteral stranding. Bladder: Normal wall thickness. No stones. ABDOMEN: Liver: No contour-deforming solid mass. Gallbladder: Mild gallbladder distension. No radiopaque gallstones. No wall thickening or pericholecystic stranding. Biliary ducts: No biliary dilation. Pancreas: No ductal dilation. No peripancreatic stranding. Spleen: Size is within normal limits. Adrenal Glands: No adrenal nodules. Stomach and Bowel: Normal colonic caliber, without significant wall thickening. No evidence for small bowel obstruction or associated inflammatory changes. Normal appendix. Extensive colonic diverticulosis with acute diverticulitis. Peritoneum: No abnormal intraperitoneal fluid. No free air. Ventral Wall: No hernia. Abdominal Nodes: No enlarged retroperitoneal or mesenteric lymph nodes. Vessels: Aorta and inferior vena cava are normal in size. Moderate atherosclerotic vascular calcifications. PELVIS: Pelvic Organs: Unremarkable. Pelvic Nodes: Unremarkable. Miscellaneous: No inguinal hernias are seen. Bones: No acute vertebral body compression fractures. Multilevel spondylitic changes throughout the imaged spine. No suspicious osseous lesions. Degenerative changes of the bilateral hips. IMPRESSION: Redemonstration of tiny punctate nonobstructing bilateral renal stones. No hydronephrosis identified. Colonic diverticulosis without acute diverticulitis. Normal appendix. Other chronic findings as above. Dictated by: Sonu Shaw M.D. on 04/05/2024 at 15:15 Approved by: Sonu Shaw M.D. on 04/05/2024 at 15:20
[2024-04-05 14:08] LABS: Alanine Aminotransferase 16 IU/L (<35); Albumin 4.5 g/dL (3.5-5.0); Albumin Globulin Ratio 1.6 (1.0-2.8); Alkaline Phosphatase 85 U/L (38-126); Aspartate Aminotransferase 39 IU/L (14-36); BUN Creatinine Ratio 27.5 (6-22); Bilirubin Total 0.8 mg/dL (0.2-1.3); Blood Urea Nitrogen 22 mg/dL (7-17); Calcium 9.3 mg/dL (8.4-10.2); Carbon Dioxide 25 mmol/L (22-32); Chloride 109 mmol/L (98-107); Estimated Glomerular Filt Rate > 60 mL/min (>60); Globulin 2.9 g/dL (1.7-4.1); Glucose 121 mg/dL (80-110); HEMOLYSIS < 15 (0-50); Potassium 4.2 mmol/L (3.4-5.1); Sodium 143 mmol/L (137-145); Total Protein 7.4 g/dL (6.3-8.2)
[2024-04-05 14:16] LABS: Add Manual Diff / Slide Review NO; Basophils Absolute Auto 0 /uL (0-100); Basophils Percent Auto 0.6 % (0-2); Eosinophils Absolute Auto 200 /uL (0-450); Eosinophils Percent Auto 2.3 % (2-4); Hemoglobin 12.1 g/dL (12.0-16.0); Lymphocytes Absolute Auto 2100 /uL (1100-4500); Lymphocytes Percent Auto 28.5 % (25-40); Mean Corpuscular HGB Conc 32.7 % (30-36); Mean Corpuscular Hemoglobin 31.5 PG (26-34); Mean Corpuscular Volume 96.5 fL (80-100); Monocytes Absolute Auto 600 /uL (0-900); Monocytes Percent Auto 8.3 % (3-14); Neutrophils Absolute Auto 4500 /uL (1500-7000); Neutrophils Percent Auto 60.3 % (50-75); Platelet Count 259 X10^3/uL (150-400); Red Blood Cell Count 3.83 X10^6/uL (4.0-5.2); Red Cell Distribution Width 13.4 % (11.6-14.8); White Blood Cell Count 7.4 X10^3/uL (4.5-11.0)
--- NOTE | 2024-04-05 14:34 | PC.NURSE ---
called [facility] [phone] option 1 (nursing) and spoke to Nurse Jasmin patient has not had fevers reported and does not use oxygen temp at [facility] [employer] = 98.9 and O2Sat at [place] [employer] = 98% Room Air
[2024-04-05 15:45] LABS: Appearance Urine UA TURBID; Color Urine UA ORANGE
[2024-04-05 15:46] LABS: Bacteria Urine Many (>30); Bilirubin Urine UA 3+ (NEGATIVE); RBC Urine 0-1/HPF (0-5/HPF); Squamous Epithelial Cell Urine 1-5 /HPF (0-5/HPF); Urine Volume 10mL (spun); WBC Urine 30-100/HPF (0-5/HPF)
[2024-04-05 15:47] LABS: Culture Indicated Urine Specimen Cultured
[2024-04-05 15:48] LABS: Ictotest Urine Negative (Negative)
--- NOTE | 2024-04-05 16:24 | DI.RAD.S_ITS ---
PROCEDURE: XR CHEST 1V INDICATIONS: hypoxemia TECHNIQUE: One view of the chest was acquired. COMPARISON: [facility], CR, XR CHEST 1V, 12/31/2023, 18:11. FINDINGS: Surgical changes and devices: A neural stimulator is seen, with a left-sided power pack. Lungs and pleura: Lungs are clear. No pleural effusions or pneumothorax. Mediastinum: The cardiac contours are within normal limits. The aorta demonstrates calcification and tortuosity. Bones and chest wall: Age-appropriate bony degenerative changes are seen. No suspicious bony lesions. Overlying soft tissues appear unremarkable. IMPRESSION: Clear lungs. Postoperative and degenerative changes are seen. Dictated by: Mark Stephens M.D. on 04/05/2024 at 16:50 Approved by: Mark Stephens M.D. on 04/05/2024 at 16:51
--- NOTE | 2024-04-05 16:25 | EKG_ITS ---
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
[2024-04-05] MEDS: ACETAMINOPHEN 325 MG TABLET 650 MG PO (16:30)
[2024-04-05 16:40] LABS: Creatine Kinase 237 U/L (30-135)
--- NOTE | 2024-04-05 16:48 | ED.FEMALEGU ---
HPI - Female Genitourinary <Lorenzo Espinosa DO - Last Filed: 04/05/24 17:48> General Chief complaint: Urogenital-Female Stated complaint: unable to urinate since yesterday/ groin pain Time Seen by Provider: 04/05/24 16:24 History of Present Illness HPI Narrative: patient is a 73-year-old female with a history of Parkinson's, with recurrent UTIs presents to the emergency department from facility for evaluation of possible urinary tract infection versus pyelonephritis versus kidney stones. States that she has been having/ complaining of bilateral flank pain. Also complaining of trouble urinating. Symptoms all started approximately 1 day ago. She does have a history of Parkinson's and dementia therefore it is difficult to obtain proper ros and HPI. But she is stating that she has not having any chest pain shortness of breath and is just complaining of flank pain. Related Data Home Medications Medication Instructions Recorded Confirmed carbidopa ER 25 mg-levodopa 100 mg 2 tab PO TID 12/31/23 02/14/24 tablet,extended release cholecalciferol (vitamin D3) 25 25 mcg PO DAILY 02/14/24 02/14/24 mcg (1,000 unit) capsule donepezil 10 mg tablet 10 mg PO DAILY 02/14/24 02/14/24 flaxseed oil 1,000 mg capsule 1,000 mg PO DAILY 02/14/24 02/14/24 gabapentin 100 mg capsule 100 mg PO DAILY 02/14/24 02/14/24 melatonin 5 mg capsule mg PO 02/14/24 02/14/24 omega-3 fatty acids 1,000 mg 1,000 mg PO DAILY 02/14/24 02/14/24 capsule omeprazole magnesium 20 mg 20 mg PO DAILY 02/14/24 02/14/24 tablet,delayed release (Prilosec OTC) sertraline 100 mg tablet 100 mg PO DAILY 02/14/24 02/14/24 sertraline 100 mg tablet 100 mg PO DAILY 02/14/24 02/14/24 tamsulosin 0.4 mg capsule 0.4 mg PO DAILY 02/14/24 02/14/24 trospium 20 mg tablet 20 mg PO BID 02/14/24 02/14/24 vitamin E (dl, acetate) 45 mg (100 45 mg PO DAILY 02/14/24 02/14/24 unit) capsule Previous Rx's Medication Instructions Recorded nitrofurantoin macrocrystal 100 mg 100 mg PO BID #14 caps 04/05/24 capsule nitrofurantoin 100 mg PO Q12H 7 days #14 caps 04/05/24 monohydrate/macrocrystals 100 mg capsule (Macrobid) Allergies Allergy/AdvReac Type Severity Reaction Status Date / Time Penicillins Allergy Intermediate Hives Verified 01/09/24 18:36 Sulfa (Sulfonamide Allergy Verified 02/14/24 09:41 Antibiotics) Review of Systems <Lorenzo Espinosa DO - Last Filed: 04/05/24 17:48> Review of Systems Narrative: General: Denies fever, chills, weight loss HEENT: Denies headache, eye drainage, eye irritation, head trauma, sore throat, voice change Cardiovascular: Denies any chest pain, palpitations, shortness of breath, tachycardia Respiratory: Denies any shortness of breath, cough, wheeze, stridor GI/: positive flank pain,Denies any abdominal pain, nausea, vomiting, diarrhea, bright red blood per rectum, melanotic stools, urinary frequency, urinary retention, dysuria, hematuria MSK: Denies any joint pain, muscle pains, swelling Skin: Denies any rashes, lesions, discoloration Neuro: Denies any headache, lightheadedness, dizziness, fainting, weakness Psych: Denies SI/HI Patient History <Lorenzo Espinosa DO - Last Filed: 04/05/24 17:48> Medical History Parkinson's disease alcohol intake frequency: holidays/special occasions only Substance Use Type: does not use Exam <Lorenzo Espinosa DO - Last Filed: 04/05/24 17:48> Narrative Exam Narrative: General: Cooperative, comfortable, well-developed, not in acute distress HEENT: Normocephalic, atraumatic, PERRLA, normal sclera, eyelids normal, Neck: Active full range of motion, atraumatic Chest: Normal to inspection, negative crepitus, no overlying erythema ecchymosis Respiratory: Normal respiratory effort, not in acute respiratory distress, clear to auscultation bilaterally negative cough, wheeze, tachypnea, rhonchi, rales Cardiology: Regular rate rhythm negative gallop, murmur, rubs GI/: Normal to inspection, soft, nonrigid, no tenderness to palpation, exam deferred MSK: Full range of active range of motion of all 4 extremities, atraumatic Skin: No rashes lesions noted Neuro: patient moving all 4 extremities spontaneously, history of dementia Parkinson's at baseline Psych: Cooperative, negative suicidal or homicidal ideations Initial Vital Signs Initial Vital Signs: Vital Signs Temperature 98.9 F 04/05/24 13:54 Pulse Rate 110 H 04/05/24 13:54 Respiratory Rate 20 04/05/24 13:54 Blood Pressure 127/55 L 04/05/24 13:54 Pulse Oximetry 90 L 04/05/24 13:54 Oxygen Delivery Method Room Air 04/05/24 13:54 <Miesha Pedroza MD - Last Filed: 04/06/24 03:44> Initial Vital Signs Initial Vital Signs: Vital Signs Temperature 98.9 F 04/05/24 13:54 Pulse Rate 110 H 04/05/24 13:54 Respiratory Rate 20 04/05/24 13:54 Blood Pressure 127/55 L 04/05/24 13:54 Pulse Oximetry 90 L 04/05/24 13:54 Oxygen Delivery Method Room Air 04/05/24 13:54 Course <Lorenzo Espinosa DO - Last Filed: 04/05/24 17:48> Orders Ordered: ED Orders 04/05/24 18:50 Respiratory Panel (Film Array) Stat 04/05/24 21:19 ABG [Arterial Blood Gas] STAT Discontinued Medications Acetaminophen (Acetaminophen 325 Mg Tablet) 650 mg PO NOW ONE Stop: 04/05/24 16:27 Last Admin: 04/05/24 16:30 Dose: 650 mg Documented By: YU Ceftriaxone Sodium 1,000 mg/ (Sodium Chloride) 100 mls @ 200 mls/hr IV NOW ONE Stop: 04/05/24 17:44 Last Infusion: 04/05/24 18:43 Dose: Infused Documented By: YU(2) Admin: 04/05/24 17:50 Dose: 200 mls/hr Documented By: YU Ketorolac Tromethamine (Ketorolac 30 Mg/Ml Vial) 15 mg IV NOW ONE Stop: 04/05/24 17:44 Last Admin: 04/05/24 17:49 Dose: 15 mg Documented By: YU Vital Signs Vital signs: Vital Signs - 8 hr 04/05/24 19:45 04/05/24 19:45 04/05/24 20:00 Temperature 99.1 F 99.1 F Pulse Rate 88 90 Respiratory Rate 15 16 Blood Pressure 116/58 L Pulse Oximetry 95 94 Oxygen Delivery Method 04/05/24 20:00 04/05/24 20:15 04/05/24 20:15 Temperature 99.1 F Pulse Rate 91 H Respiratory Rate 16 Blood Pressure 120/56 L 133/63 Pulse Oximetry 95 Oxygen Delivery Method 04/05/24 20:30 04/05/24 20:30 04/05/24 20:45 Temperature 99.1 F Pulse Rate 91 H Respiratory Rate 18 Blood Pressure 129/56 L 122/58 L Pulse Oximetry 91 Oxygen Delivery Method Room Air 04/05/24 20:45 04/05/24 21:00 04/05/24 21:00 Temperature 99.1 F 99.1 F Pulse Rate 89 87 Respiratory Rate 14 19 Blood Pressure 121/59 L Pulse Oximetry 92 91 Oxygen Delivery Method Room Air Room Air 04/05/24 21:15 04/05/24 21:15 04/05/24 21:30 Temperature 99.1 F 99.1 F Pulse Rate 86 83 Respiratory Rate 15 15 Blood Pressure 119/59 L Pulse Oximetry 91 Oxygen Delivery Method 04/05/24 21:30 04/05/24 21:45 04/05/24 21:45 Temperature 96.8 F L Pulse Rate 85 Respiratory Rate 18 Blood Pressure 112/52 L 113/56 L Pulse Oximetry 94 Oxygen Delivery Method 04/05/24 22:00 04/05/24 22:00 04/05/24 22:15 Temperature Pulse Rate 87 Respiratory Rate 17 Blood Pressure 129/59 L 127/58 L Pulse Oximetry 93 Oxygen Delivery Method Room Air 04/05/24 22:15 04/05/24 22:30 04/05/24 22:30 Temperature 98.5 F Pulse Rate 91 H 88 Respiratory Rate 17 14 Blood Pressure 123/57 L Pulse Oximetry 92 93 Oxygen Delivery Method <Miesha Pedroza MD - Last Filed: 04/06/24 03:44> Orders Ordered: ED Orders 04/05/24 18:50 Respiratory Panel (Film Array) Stat 04/05/24 21:19 ABG [Arterial Blood Gas] STAT Discontinued Medications Acetaminophen (Acetaminophen 325 Mg Tablet) 650 mg PO NOW ONE Stop: 04/05/24 16:27 Last Admin: 04/05/24 16:30 Dose: 650 mg Documented By: YU Ceftriaxone Sodium 1,000 mg/ (Sodium Chloride) 100 mls @ 200 mls/hr IV NOW ONE Stop: 04/05/24 17:44 Last Infusion: 04/05/24 18:43 Dose: Infused Documented By: YU(2) Admin: 04/05/24 17:50 Dose: 200 mls/hr Documented By: YU Ketorolac Tromethamine (Ketorolac 30 Mg/Ml Vial) 15 mg IV NOW ONE Stop: 04/05/24 17:44 Last Admin: 04/05/24 17:49 Dose: 15 mg Documented By: YU Vital Signs Vital signs: Vital Signs - 8 hr 04/05/24 19:45 04/05/24 19:45 04/05/24 20:00 Temperature 99.1 F 99.1 F Pulse Rate 88 90 Respiratory Rate 15 16 Blood Pressure 116/58 L Pulse Oximetry 95 94 Oxygen Delivery Method 04/05/24 20:00 04/05/24 20:15 04/05/24 20:15 Temperature 99.1 F Pulse Rate 91 H Respiratory Rate 16 Blood Pressure 120/56 L 133/63 Pulse Oximetry 95 Oxygen Delivery Method 04/05/24 20:30 04/05/24 20:30 04/05/24 20:45 Temperature 99.1 F Pulse Rate 91 H Respiratory Rate 18 Blood Pressure 129/56 L 122/58 L Pulse Oximetry 91 Oxygen Delivery Method Room Air 04/05/24 20:45 04/05/24 21:00 04/05/24 21:00 Temperature 99.1 F 99.1 F Pulse Rate 89 87 Respiratory Rate 14 19 Blood Pressure 121/59 L Pulse Oximetry 92 91 Oxygen Delivery Method Room Air Room Air 04/05/24 21:15 04/05/24 21:15 04/05/24 21:30 Temperature 99.1 F 99.1 F Pulse Rate 86 83 Respiratory Rate 15 15 Blood Pressure 119/59 L Pulse Oximetry 91 Oxygen Delivery Method 04/05/24 21:30 04/05/24 21:45 04/05/24 21:45 Temperature 96.8 F L Pulse Rate 85 Respiratory Rate 18 Blood Pressure 112/52 L 113/56 L Pulse Oximetry 94 Oxygen Delivery Method 04/05/24 22:00 04/05/24 22:00 04/05/24 22:15 Temperature Pulse Rate 87 Respiratory Rate 17 Blood Pressure 129/59 L 127/58 L Pulse Oximetry 93 Oxygen Delivery Method Room Air 04/05/24 22:15 04/05/24 22:30 04/05/24 22:30 Temperature 98.5 F Pulse Rate 91 H 88 Respiratory Rate 17 14 Blood Pressure 123/57 L Pulse Oximetry 92 93 Oxygen Delivery Method MDM - Female Genitourinary <Lorenzo Espinosa DO - Last Filed: 04/05/24 17:48> Differential Diagnosis Differential diagnosis: Likely urinary tract infection and other ( pyelonephritis, urolithiasis, nephrolithiasis, pulmonary embolism, pneumonia, ACS) Lab Data 04/05/24 13:40 04/05/24 13:40 Labs: Lab Results 04/05/24 04/05/24 04/05/24 Range/Units 13:40 15:29 18:50 WBC 7.4 (4.5-11.0) X10^3/uL RBC 3.83 L (4.0-5.2) X10^6/uL Hgb 12.1 (12.0-16.0) g/dL Hct 37.0 (36-46) % MCV 96.5 (80-100) fL MCH 31.5 (26-34) PG MCHC 32.7 (30-36) % RDW 13.4 (11.6-14.8) % Plt Count 259 (150-400) X10^3/uL Neut % (Auto) 60.3 (50-75) % Lymph % (Auto) 28.5 (25-40) % [place] % (Auto) 8.3 (3-14) % Eos % (Auto) 2.3 (2-4) % Baso % (Auto) 0.6 (0-2) % Neut # (Auto) 4500 (5669-0145) /uL Lymph # (Auto) 2100 (8170-6230) /uL [place] # (Auto) 600 (0-900) /uL Eos # (Auto) 200 (0-450) /uL Baso # (Auto) 0 (0-100) /uL ABG Sample Site ABG pH (7.35-7.45) ABG pCO2 (35-45) mmHg ABG pO2 (80-100) mmHg ABG HCO3 (23-27) mmol/L ABG Total CO2 (23-27) mmol/L ABG O2 Saturation (95-100) % ABG Base Excess (-2-3) mmol/L Epifanio Test Sodium 143 (137-145) mmol/L Potassium 4.2 (3.4-5.1) mmol/L Chloride 109 H (98-107) mmol/L Carbon Dioxide 25 (22-32) mmol/L BUN 22 H (7-17) mg/dL Creatinine 0.80 (0.52-1.04) mg/dL Estimated GFR > 60 (>60) mL/min BUN/Creatinine Ratio 27.5 H (6-22) Glucose 121 H (80-110) mg/dL Calcium 9.3 (8.4-10.2) mg/dL Total Bilirubin 0.8 (0.2-1.3) mg/dL AST 39 H (14-36) IU/L ALT 16 (<35) IU/L Alkaline Phosphatase 85 (38-126) U/L Total Creatine Kinase 237 H (30-135) U/L Troponin I < 0.012 (0.01-0.034) ng/mL NT-Pro-B Natriuret Pep 45 (<125) pg/mL Total Protein 7.4 (6.3-8.2) g/dL Albumin 4.5 (3.5-5.0) g/dL Globulin 2.9 (1.7-4.1) g/dL Albumin/Globulin Ratio 1.6 (1.0-2.8) Urine Color [place] Urine Appearance Turbid Urine pH TNP Ur Specific Stem TNP Urine Protein TNP Urine Glucose (UA) TNP Urine Ketones TNP Urine Occult Blood TNP Urine Nitrate TNP Urine Bilirubin 3+ H (NEGATIVE) Ur Bilirubin Confirm Negative (Negative) Urine Urobilinogen TNP Ur Leukocyte Esterase TNP Urine RBC 0-1/hpf (0-5/HPF) Urine WBC 30-100/hpf H (0-5/HPF) Ur Squamous Epith Cells 1-5 /hpf (0-5/HPF) Urine Bacteria Many (>30) H (None) Ur Culture Indicated? Specimen cultured Vol Urine Centrifuged 10ml (spun) Chlamy pneumoniae PCR Not detected (Not Detect) Adenovirus (PCR) Not detected (Not Detect) B. pertussis DNA (PCR) Not detected (Not Detect) B.parapertussis DNA PCR Not detected (Not Detecte) Coronavirus OC43 (PCR) Not detected (Not Detect) Coronavirus HKU1 (PCR) Not detected (Not Detect) Coronavirus 229E (PCR) Not detected (Not Detect) SARS-CoV-2 (PCR) Not detected (Not Detecte) Coronavirus NL63 (PCR) Not detected (Not Detect) Human Metapneumovir PCR Not detected (Not Detect) Influenza Type A (PCR) Not detected (Not Detect) Influenza Type B (PCR) Not detected (Not Detect) M. pneumoniae (PCR) Not detected (Not Detect) Parainfluenza 1 (PCR) Not detected (Not Detect) Parainfluenza 2 (PCR) Not detected (Not Detect) Parainfluenza 3 (PCR) Not detected (Not Detect) Parainfluenza 4 (PCR) Not detected (Not Detect) RSV (PCR) Not detected (Not Detect) Entero/Rhino (PCR) Not detected (Not Detect) 04/05/24 Range/Units 21:27 WBC (4.5-11.0) X10^3/uL RBC (4.0-5.2) X10^6/uL Hgb (12.0-16.0) g/dL Hct (36-46) % MCV (80-100) fL MCH (26-34) PG MCHC (30-36) % RDW (11.6-14.8) % Plt Count (150-400) X10^3/uL Neut % (Auto) (50-75) % Lymph % (Auto) (25-40) % [place] % (Auto) (3-14) % Eos % (Auto) (2-4) % Baso % (Auto) (0-2) % Neut # (Auto) (5340-4795) /uL Lymph # (Auto) (1624-3881) /uL [place] # (Auto) (0-900) /uL Eos # (Auto) (0-450) /uL Baso # (Auto) (0-100) /uL ABG Sample Site Left radial ABG pH 7.41 (7.35-7.45) ABG pCO2 42.4 (35-45) mmHg ABG pO2 71 L (80-100) mmHg ABG HCO3 27 (23-27) mmol/L ABG Total CO2 27 (23-27) mmol/L ABG O2 Saturation 94 L (95-100) % ABG Base Excess 1.6 (-2-3) mmol/L Epifanio Test Positive Sodium (137-145) mmol/L Potassium (3.4-5.1) mmol/L Chloride (98-107) mmol/L Carbon Dioxide (22-32) mmol/L BUN (7-17) mg/dL Creatinine (0.52-1.04) mg/dL Estimated GFR (>60) mL/min BUN/Creatinine Ratio (6-22) Glucose (80-110) mg/dL Calcium (8.4-10.2) mg/dL Total Bilirubin (0.2-1.3) mg/dL AST (14-36) IU/L ALT (<35) IU/L Alkaline Phosphatase (38-126) U/L Total Creatine Kinase (30-135) U/L Troponin I (0.01-0.034) ng/mL NT-Pro-B Natriuret Pep (<125) pg/mL Total Protein (6.3-8.2) g/dL Albumin (3.5-5.0) g/dL Globulin (1.7-4.1) g/dL Albumin/Globulin Ratio (1.0-2.8) Urine Color Urine Appearance Urine pH Ur Specific Stem Urine Protein Urine Glucose (UA) Urine Ketones Urine Occult Blood Urine Nitrate Urine Bilirubin (NEGATIVE) Ur Bilirubin Confirm (Negative) Urine Urobilinogen Ur Leukocyte Esterase Urine RBC (0-5/HPF) Urine WBC (0-5/HPF) Ur Squamous Epith Cells (0-5/HPF) Urine Bacteria (None) Ur Culture Indicated? Vol Urine Centrifuged Chlamy pneumoniae PCR (Not Detect) Adenovirus (PCR) (Not Detect) B. pertussis DNA (PCR) (Not Detect) B.parapertussis DNA PCR (Not Detecte) Coronavirus OC43 (PCR) (Not Detect) Coronavirus HKU1 (PCR) (Not Detect) Coronavirus 229E (PCR) (Not Detect) SARS-CoV-2 (PCR) (Not Detecte) Coronavirus NL63 (PCR) (Not Detect) Human Metapneumovir PCR (Not Detect) Influenza Type A (PCR) (Not Detect) Influenza Type B (PCR) (Not Detect) M. pneumoniae (PCR) (Not Detect) Parainfluenza 1 (PCR) (Not Detect) Parainfluenza 2 (PCR) (Not Detect) Parainfluenza 3 (PCR) (Not Detect) Parainfluenza 4 (PCR) (Not Detect) RSV (PCR) (Not Detect) Entero/Rhino (PCR) (Not Detect) Imaging Data CT scan - abdomen/pelvis: Radiologist's Impression: [address] [address] [address] Scan Report Signed Patient: Carissa Evans MR#: [id number] : 1950 Acct:[id number] Age/Sex: 73 / F Date of Service: 04/05/24 Loc: ED Accession Number: [id number] Procedure: CT kidney ureter bladder (KUB) Ordering Provider: Lorenzo Espinosa D.O. PROCEDURE: CT KIDNEY URETER BLADDER (KUB) INDICATIONS: r/o kidney stone, unable to urinate TECHNIQUE: Axial sections were acquired from the lung bases to the pubic symphysis. Coronal and sagittal reformats were performed. For radiation dose reduction, the following was used: automated exposure control, adjustment of mA and/or kV according to patient size. COMPARISON: Merged With [facility], CT, CT KIDNEY URETER BLADDER (KUB), 01/09/2024, 19:27. FINDINGS: Image quality: Diagnostic. Lower Chest: No significant findings. URINARY: Kidney/ureter: Punctate nonobstructing bilateral renal stones are again noted. No hydronephrosis. No perinephric stranding. Bilateral ureters are normal course and caliber without ureteral stone. No periureteral stranding. Bladder: Normal wall thickness. No stones. ABDOMEN: Liver: No contour-deforming solid mass. Gallbladder: Mild gallbladder distension. No radiopaque gallstones. No wall thickening or pericholecystic stranding. Biliary ducts: No biliary dilation. Pancreas: No ductal dilation. No peripancreatic stranding. Spleen: Size is within normal limits. Adrenal Glands: No adrenal nodules. Stomach and Bowel: Normal colonic caliber, without significant wall thickening. No evidence for small bowel obstruction or associated inflammatory changes. Normal appendix. Extensive colonic diverticulosis with acute diverticulitis. Peritoneum: No abnormal intraperitoneal fluid. No free air. Ventral Wall: No hernia. Abdominal Nodes: No enlarged retroperitoneal or mesenteric lymph nodes. Vessels: Aorta and inferior vena cava are normal in size. Moderate atherosclerotic vascular calcifications. PELVIS: Pelvic Organs: Unremarkable. Pelvic Nodes: Unremarkable. Miscellaneous: No inguinal hernias are seen. Bones: No acute vertebral body compression fractures. Multilevel spondylitic changes throughout the imaged spine. No suspicious osseous lesions. Degenerative changes of the bilateral hips. IMPRESSION: Redemonstration of tiny punctate nonobstructing bilateral renal stones. No hydronephrosis identified. Colonic diverticulosis without acute diverticulitis. Normal appendix. ECG Data Interpretation: EKG interpreted ED physician sinus at 99 beats per minute QTC 472, normal axis nonspecific ST changes no STEMI MDM Narrative Medical decision making narrative: patient is a 73-year-old female with a history of dementia Parkinson's from living facility came in complaining of flank pain as well as inability to urinate. Started proximally 24 hours ago, is at her baseline no focal deficits, urinalysis was consistent with infection CT scan without any urolithiasis, however with positive CVA tenderness will treat for pyelonephritis. to note while patient was being evaluated here in the emergency department patient requiring 2 L nasal cannula, patient not complaining of any chest pain or shortness of breath, EKG nonischemic in nature, we will obtain CTA chest to rule out pulmonary embolism, troponin negative. Patient was signed out to on coming provider <Miesha Pedroza MD - Last Filed: 04/06/24 03:44> Lab Data Labs: Lab Results 04/05/24 04/05/24 04/05/24 Range/Units 13:40 15:29 18:50 WBC 7.4 (4.5-11.0) X10^3/uL RBC 3.83 L (4.0-5.2) X10^6/uL Hgb 12.1 (12.0-16.0) g/dL Hct 37.0 (36-46) % MCV 96.5 (80-100) fL MCH 31.5 (26-34) PG MCHC 32.7 (30-36) % RDW 13.4 (11.6-14.8) % Plt Count 259 (150-400) X10^3/uL Neut % (Auto) 60.3 (50-75) % Lymph % (Auto) 28.5 (25-40) % [place] % (Auto) 8.3 (3-14) % Eos % (Auto) 2.3 (2-4) % Baso % (Auto) 0.6 (0-2) % Neut # (Auto) 4500 (3708-7429) /uL Lymph # (Auto) 2100 (9774-7127) /uL [place] # (Auto) 600 (0-900) /uL Eos # (Auto) 200 (0-450) /uL Baso # (Auto) 0 (0-100) /uL ABG Sample Site ABG pH (7.35-7.45) ABG pCO2 (35-45) mmHg ABG pO2 (80-100) mmHg ABG HCO3 (23-27) mmol/L ABG Total CO2 (23-27) mmol/L ABG O2 Saturation (95-100) % ABG Base Excess (-2-3) mmol/L Epifanio Test Sodium 143 (137-145) mmol/L Potassium 4.2 (3.4-5.1) mmol/L Chloride 109 H (98-107) mmol/L Carbon Dioxide 25 (22-32) mmol/L BUN 22 H (7-17) mg/dL Creatinine 0.80 (0.52-1.04) mg/dL Estimated GFR > 60 (>60) mL/min BUN/Creatinine Ratio 27.5 H (6-22) Glucose 121 H (80-110) mg/dL Calcium 9.3 (8.4-10.2) mg/dL Total Bilirubin 0.8 (0.2-1.3) mg/dL AST 39 H (14-36) IU/L ALT 16 (<35) IU/L Alkaline Phosphatase 85 (38-126) U/L Total Creatine Kinase 237 H (30-135) U/L Troponin I < 0.012 (0.01-0.034) ng/mL NT-Pro-B Natriuret Pep 45 (<125) pg/mL Total Protein 7.4 (6.3-8.2) g/dL Albumin 4.5 (3.5-5.0) g/dL Globulin 2.9 (1.7-4.1) g/dL Albumin/Globulin Ratio 1.6 (1.0-2.8) Urine Color [place] Urine Appearance Turbid Urine pH TNP Ur Specific Stem TNP Urine Protein TNP Urine Glucose (UA) TNP Urine Ketones TNP Urine Occult Blood TNP Urine Nitrate TNP Urine Bilirubin 3+ H (NEGATIVE) Ur Bilirubin Confirm Negative (Negative) Urine Urobilinogen TNP Ur Leukocyte Esterase TNP Urine RBC 0-1/hpf (0-5/HPF) Urine WBC 30-100/hpf H (0-5/HPF) Ur Squamous Epith Cells 1-5 /hpf (0-5/HPF) Urine Bacteria Many (>30) H (None) Ur Culture Indicated? Specimen cultured Vol Urine Centrifuged 10ml (spun) Chlamy pneumoniae PCR Not detected (Not Detect) Adenovirus (PCR) Not detected (Not Detect) B. pertussis DNA (PCR) Not detected (Not Detect) B.parapertussis DNA PCR Not detected (Not Detecte) Coronavirus OC43 (PCR) Not detected (Not Detect) Coronavirus HKU1 (PCR) Not detected (Not Detect) Coronavirus 229E (PCR) Not detected (Not Detect) SARS-CoV-2 (PCR) Not detected (Not Detecte) Coronavirus NL63 (PCR) Not detected (Not Detect) Human Metapneumovir PCR Not detected (Not Detect) Influenza Type A (PCR) Not detected (Not Detect) Influenza Type B (PCR) Not detected (Not Detect) M. pneumoniae (PCR) Not detected (Not Detect) Parainfluenza 1 (PCR) Not detected (Not Detect) Parainfluenza 2 (PCR) Not detected (Not Detect) Parainfluenza 3 (PCR) Not detected (Not Detect) Parainfluenza 4 (PCR) Not detected (Not Detect) RSV (PCR) Not detected (Not Detect) Entero/Rhino (PCR) Not detected (Not Detect) 04/05/24 Range/Units 21:27 WBC (4.5-11.0) X10^3/uL RBC (4.0-5.2) X10^6/uL Hgb (12.0-16.0) g/dL Hct (36-46) % MCV (80-100) fL MCH (26-34) PG MCHC (30-36) % RDW (11.6-14.8) % Plt Count (150-400) X10^3/uL Neut % (Auto) (50-75) % Lymph % (Auto) (25-40) % [place] % (Auto) (3-14) % Eos % (Auto) (2-4) % Baso % (Auto) (0-2) % Neut # (Auto) (9679-8860) /uL Lymph # (Auto) (2984-7310) /uL [place] # (Auto) (0-900) /uL Eos # (Auto) (0-450) /uL Baso # (Auto) (0-100) /uL ABG Sample Site Left radial ABG pH 7.41 (7.35-7.45) ABG pCO2 42.4 (35-45) mmHg ABG pO2 71 L (80-100) mmHg ABG HCO3 27 (23-27) mmol/L ABG Total CO2 27 (23-27) mmol/L ABG O2 Saturation 94 L (95-100) % ABG Base Excess 1.6 (-2-3) mmol/L Epifanio Test Positive Sodium (137-145) mmol/L Potassium (3.4-5.1) mmol/L Chloride (98-107) mmol/L Carbon Dioxide (22-32) mmol/L BUN (7-17) mg/dL Creatinine (0.52-1.04) mg/dL Estimated GFR (>60) mL/min BUN/Creatinine Ratio (6-22) Glucose (80-110) mg/dL Calcium (8.4-10.2) mg/dL Total Bilirubin (0.2-1.3) mg/dL AST (14-36) IU/L ALT (<35) IU/L Alkaline Phosphatase (38-126) U/L Total Creatine Kinase (30-135) U/L Troponin I (0.01-0.034) ng/mL NT-Pro-B Natriuret Pep (<125) pg/mL Total Protein (6.3-8.2) g/dL Albumin (3.5-5.0) g/dL Globulin (1.7-4.1) g/dL Albumin/Globulin Ratio (1.0-2.8) Urine Color Urine Appearance Urine pH Ur Specific Stem Urine Protein Urine Glucose (UA) Urine Ketones Urine Occult Blood Urine Nitrate Urine Bilirubin (NEGATIVE) Ur Bilirubin Confirm (Negative) Urine Urobilinogen Ur Leukocyte Esterase Urine RBC (0-5/HPF) Urine WBC (0-5/HPF) Ur Squamous Epith Cells (0-5/HPF) Urine Bacteria (None) Ur Culture Indicated? Vol Urine Centrifuged Chlamy pneumoniae PCR (Not Detect) Adenovirus (PCR) (Not Detect) B. pertussis DNA (PCR) (Not Detect) B.parapertussis DNA PCR (Not Detecte) Coronavirus OC43 (PCR) (Not Detect) Coronavirus HKU1 (PCR) (Not Detect) Coronavirus 229E (PCR) (Not Detect) SARS-CoV-2 (PCR) (Not Detecte) Coronavirus NL63 (PCR) (Not Detect) Human Metapneumovir PCR (Not Detect) Influenza Type A (PCR) (Not Detect) Influenza Type B (PCR) (Not Detect) M. pneumoniae (PCR) (Not Detect) Parainfluenza 1 (PCR) (Not Detect) Parainfluenza 2 (PCR) (Not Detect) Parainfluenza 3 (PCR) (Not Detect) Parainfluenza 4 (PCR) (Not Detect) RSV (PCR) (Not Detect) Entero/Rhino (PCR) (Not Detect) Imaging Data CT scan - chest: Radiologist's Impression: PROCEDURE: CT ANGIO CHEST PE PROTOCOL INDICATIONS: Hypoxemia TECHNIQUE: After the administration of intravenous contrast, 2 mm thick sections acquired from the pulmonary apices to the posterior costophrenic angles. 3-dimensional maximum intensity projection (MIP) coronal and sagittal reformats were then acquired through the thorax. For radiation dose reduction, the following was used: automated exposure control, adjustment of mA and/or kV according to patient size. COMPARISON: Merged With [facility], CT, CT ABDOMEN PELVIS W CON, 12/31/2023, 19:35. Merged With [facility], CR, XR CHEST 1V, 04/05/2024, 17:16. [facility] Hospital, CT, CT KIDNEY URETER BLADDER (KUB), 04/05/2024, 14:14. FINDINGS: Image quality: Diagnostic. Pulmonary arteries: Pulmonary arteries are normal in size, and demonstrate no intraluminal filling defects to suggest central pulmonary embolism. Lower Neck: No enlarged lymph nodes. A left-sided nerve stimulator is seen, with bilateral leads partially seen within the lower neck. Thyroid: No thyroid nodules which require sonographic follow up, per consensus guidelines. Axillae: No enlarged lymph nodes. Chest Wall: No significant abnormality is seen. Bones: Age-appropriate bony degenerative changes are seen. A remote T12 fracture is seen, with a Schmorl's node. Lungs and Pleura: No pneumothorax or pleural effusions. No consolidation or suspicious nodules. Heart: Heart size is normal. No pericardial effusion. Thoracic Vessels: No aortic aneurysm. Mediastinum and Kayla: No enlarged lymph nodes. Esophagus: No wall thickening. No hiatal hernia. Upper Abdomen: Visualized upper abdomen solid organs and bowel loops appear normal. IMPRESSION: No pulmonary embolus. No acute cardiopulmonary process. Additional findings: Neural stimulator Remote T12 fracture, with a Schmorl's node. Dictated by: Mark Stephens M.D. on 04/05/2024 at 17:26 Approved by: Mark Stephens M.D. on 04/05/2024 at 17:28 [facility] Narrative Medical decision making narrative: patient is a 73-year-old female with a history of dementia Parkinson's from living facility came in complaining of flank pain as well as inability to urinate. Started proximally 24 hours ago, is at her baseline no focal deficits, urinalysis was consistent with infection CT scan without any urolithiasis, however with positive CVA tenderness will treat for pyelonephritis. to note while patient was being evaluated here in the emergency department patient requiring 2 L nasal cannula, patient not complaining of any chest pain or shortness of breath, EKG nonischemic in nature, we will obtain CTA chest to rule out pulmonary embolism, troponin negative. Patient was signed out to on coming provider Dr. Pedrzoa -care of patient is signed out to me by daytime physician. Independent review of patient and chart performed by myself. CT shows punctate renal stones without any signs of inflammatory changes in the kidney or obstructive uropathy. CT angio shows no acute cardiopulmonary process. For some reason the patient's pulse ox continued to show low saturations, however when ABG was obtained while patient on room air it shows that SpO2 94%. Based on all labs and imaging I have low suspicion for true pyelonephritis at this time. Patient reassessed, she was sleeping in bed, she states her only pain is in her bladder. On exam there was no CVA tenderness, no abdominal tenderness, and imaging is not indicative of acute pyelonephritis at this time. Previous cultures were reviewed, patient does have resistant to many antibiotics. She does have susceptibility to Macrobid. There is also susceptibility to Bactrim, but patient's chart reports that she was allergic to sulfa drugs. Patient was started on nitrofurantoin rx, I recommended that patient see urology as she was at very high risk of becoming colonized with ESBL E coli. Discharge Plan Departure Patient Disposition: Home Clinical Impression: Acute pyelonephritis Instructions: DI for Urinary Tract Infection (UTI) Activity Restrictions/Additional Instructions: Finish all antibiotics. I recommend seeing a urologist for frequent UTIs. Carissa is at very high risk for multi-drug resistant infections, which are deadly Prescriptions: New nitrofurantoin monohyd/m-cryst [Macrobid] 100 mg capsule 100 mg PO Q12H 7 Days Qty: 14 0RF Rx Instructions: must administer with a meal/food nitrofurantoin macrocrystal 100 mg capsule 100 mg PO BID Qty: 14 0RF Rx Instructions: must administer with a meal/food No Action carbidopa-levodopa 25-100 mg tablet extended release 2 tab PO TID tamsulosin 0.4 mg capsule 0.4 mg PO DAILY omega-3 fatty acids 1,000 mg capsule 1,000 mg PO DAILY vitamin E (dl, acetate) 45 mg (100 unit) capsule 45 mg PO DAILY cholecalciferol (vitamin D3) 25 mcg (1,000 unit) capsule 25 mcg PO DAILY flaxseed oil 1,000 mg capsule 1,000 mg PO DAILY Rx Instructions: administer with a meal melatonin 5 mg capsule PO gabapentin 100 mg capsule 100 mg PO DAILY donepezil 10 mg tablet 10 mg PO DAILY trospium 20 mg tablet 20 mg PO BID Rx Instructions: administer on an empty stomach sertraline 100 mg tablet 100 mg PO DAILY omeprazole magnesium [Prilosec OTC] 20 mg tablet,delayed release (DR/EC) 20 mg PO DAILY sertraline 100 mg tablet 100 mg PO DAILY Referrals: Ge Martell DO [Physician] - Miscellaneous,Doctor, MD [Primary Care Provider] - Stand Alone Forms: Patient Portal/API/Survey
[2024-04-05 16:50] LABS: NT-proBNP (BNP-Adult 18+) 45 pg/mL (<125)
[2024-04-05 16:53] LABS: Troponin I < 0.012 ng/mL (0.01-0.034)
--- NOTE | 2024-04-05 17:41 | DI.CT.S_ITS ---
PROCEDURE: CT ANGIO CHEST PE PROTOCOL INDICATIONS: Hypoxemia TECHNIQUE: After the administration of intravenous contrast, 2 mm thick sections acquired from the pulmonary apices to the posterior costophrenic angles. 3-dimensional maximum intensity projection (MIP) coronal and sagittal reformats were then acquired through the thorax. For radiation dose reduction, the following was used: automated exposure control, adjustment of mA and/or kV according to patient size. COMPARISON: [facility], CT, CT ABDOMEN PELVIS W CON, 12/31/2023, 19:35. [facility], CR, XR CHEST 1V, 04/05/2024, 17:16. [facility], CT, CT KIDNEY URETER BLADDER (KUB), 04/05/2024, 14:14. FINDINGS: Image quality: Diagnostic. Pulmonary arteries: Pulmonary arteries are normal in size, and demonstrate no intraluminal filling defects to suggest central pulmonary embolism. Lower Neck: No enlarged lymph nodes. A left-sided nerve stimulator is seen, with bilateral leads partially seen within the lower neck. Thyroid: No thyroid nodules which require sonographic follow up, per consensus guidelines. Axillae: No enlarged lymph nodes. Chest Wall: No significant abnormality is seen. Bones: Age-appropriate bony degenerative changes are seen. A remote T12 fracture is seen, with a Schmorl's node. Lungs and Pleura: No pneumothorax or pleural effusions. No consolidation or suspicious nodules. Heart: Heart size is normal. No pericardial effusion. Thoracic Vessels: No aortic aneurysm. Mediastinum and Kayla: No enlarged lymph nodes. Esophagus: No wall thickening. No hiatal hernia. Upper Abdomen: Visualized upper abdomen solid organs and bowel loops appear normal. IMPRESSION: No pulmonary embolus. No acute cardiopulmonary process. Additional findings: Neural stimulator Remote T12 fracture, with a Schmorl's node. Dictated by: Mark Stephens M.D. on 04/05/2024 at 17:26 Approved by: Mark Stephens M.D. on 04/05/2024 at 17:28
[2024-04-05] MEDS: KETOROLAC 30 MG/ML VIAL 15 MG IV (17:49)
[2024-04-05] MEDS: cefTRIAXone 1,000 MG in SODIUM CHLORIDE 0.9% 100 ML 200 MG IV (17:50)
--- NOTE | 2024-04-05 18:01 | PC.NURSE ---
This RN performed rectal temp with RN Santy. Patient temp is 100.1. This RN informed primary nurse and Dr. Espinosa.
[2024-04-05 19:46] LABS: Adenovirus Not Detected (Not Detect); B. parapertussis Not Detected (Not Detecte); Bordetella pertussis Not Detected (Not Detect); Chlamydophila pneumoniae Not Detected (Not Detect); Coronavirus 229E Not Detected (Not Detect); Coronavirus HKU1 Not Detected (Not Detect); Coronavirus NL 63 Not Detected (Not Detect); Coronavirus OC43 Not Detected (Not Detect); Human Metapneumovirus Not Detected (Not Detect); Human Rhinovirus/Enterovirus Not Detected (Not Detect); Influenza A Not Detected (Not Detect); Influenza B Not Detected (Not Detect); Mycoplasma pneumoniae Not Detected (Not Detect); Parainfluenza Virus 1 Not Detected (Not Detect); Parainfluenza Virus 2 Not Detected (Not Detect); Parainfluenza Virus 3 Not Detected (Not Detect); Parainfluenza Virus 4 Not Detected (Not Detect); Respiratory Syncytial Virus Not Detected (Not Detect); SARS- CoV-2 Not Detected (Not Detecte)
[2024-04-05 21:30] LABS: Allen Test for ABG Passed? Positive; Base Excess ABG 1.6 mmol/L (-2-3); Blood Gas Collection Site Left Radial; HCO3 ABG 27 mmol/L (23-27); Oxygen Saturation ABG 94 % (95-100); PCO2 ABG 42.4 mmHg (35-45); PO2 ABG 71 mmHg (80-100); TCO2 ABG 27 mmol/L (23-27); pH ABG 7.41 (7.35-7.45)
--- NOTE | 2024-04-05 22:29 | PC.NURSE ---
called [facility] # [phone] option 1 spoke with [facility] explained patient was seen and treated for UTI will need f/u for same, RX for UTI antibiotics confirmed pharmacy as [facility], will send results with dc papers for UTI, non obstructing kidney stones and some urine retention of <400 cc with a fever TMAX 101 here at ER. Explainedd need for close f/u and same is indicated by MD on dc instructions.
--- NOTE | 2024-04-06 09:41 | PC.NURSE ---
called and spoke with Nurse Jasmin @ [facility] # [phone] (option #1) They have all information/dc packet sent last night, RX coming from [facility], She reports patient has urinated today after Urinary Catheter Removal. Faxed them preliminary Urine Cx results - Gram Negative Baccilli and explained they are only preliminary and we will contact them if with final results the antibiotics need to be changed. Also faxed signed provider HPI from ED providers for ED visit 04/05/24 no further questions from nursing staff.
== END 2024-04-05 23:25 | disposition home or self-care (01) ==
PROVIDERS: Student in an Organized Health Care Education/Training Program; Emergency Provider Emergency Medicine
DX: N10 Acute pyelonephritis (principal); R09.02 Hypoxemia; R10.9 Unspecified abdominal pain; G20.A1 Parkinson's disease without dyskinesia, without mention of fluctuations
CPT/HCPCS: 36600; 51798; 71045; 71275; 74176; 80053; 81001; 82550; 82805; 83880; 84484; 85025; 87077; 87086; 87186; 87633; 93005; 96365; 96375; 99285; J0696; J1885; Q9967

== ENCOUNTER → 2024-04-19 16:28 | Outpatient (ROUT) | payer MEDICARE, MEDICAID, SELFPAY ==
[2024-04-19 16:39] LABS: Appearance Urine UA Cloudy
[2024-04-19 16:40] LABS: Color Urine UA Orange
[2024-04-19 16:42] LABS: Bacteria Urine Many (>30); Culture Indicated Urine Specimen Cultured; RBC Urine 0-1/HPF (0-5/HPF); Squamous Epithelial Cell Urine 1-5 /HPF (0-5/HPF); Urine Volume 10mL (spun); WBC Urine 10-30/HPF (0-5/HPF)
== END ==
PROVIDERS: Visit Provider Internal Medicine
DX: R35.0 Frequency of micturition (principal); R39.15 Urgency of urination
CPT/HCPCS: 81001; 87077; 87086; 87186

== ENCOUNTER 2024-04-29 16:01 | Emergency (ER) | payer MEDICARE, SELFPAY ==
[2024-04-29 16:07] VITALS: BP 116/57; PULSE 86; RESP 18; TEMP 36.9; O2SAT 95; BMI 20.7
--- NOTE | 2024-04-29 16:33 | ED_ITS ---
HPI - Female Genitourinary <Corinne Khan PA-C - Last Filed: 04/29/24 20:06> General Chief complaint: Urogenital-Female Stated complaint: pelvic pain, ongoing UTI Time Seen by Provider: 04/29/24 16:22 Source: patient and EMS Mode of arrival: EMS History of Present Illness HPI Narrative: Ms. Evans is a pleasant 73-year-old female with a past medical history of chronic pelvic pain, incomplete bladder emptying, Parkinson's disease, dementia, incomplete bladder emptying, recurrent UTIs who presents to the emergency department via EMS from her assisted living facility for pelvic pain x2 days. Patient states because of her Parkinson's disease she has ?genital spasms? that caused her chronic pelvic pain. States that she stopped taking antibiotics for a UTI 2 days ago and the pelvic pain returned then. She reports that she has pain with an empty bladder so she often holds her bladder because it is more comfortable when it is full. She describes the pain as primarily inside her vagina and near her labia minora. States the pain is worse than normal. Denies flank pain, fevers, chills, vomiting, diarrhea, vaginal discharge or bleeding, shortness of breath. She is not sexually active. Patient states her neurologist prescribed her gabapentin today which did help the pain slightly. Related Data Home Medications Medication Instructions Recorded Confirmed carbidopa ER 25 mg-levodopa 100 mg 2 tab PO TID 12/31/23 04/08/24 tablet,extended release cholecalciferol (vitamin D3) 25 25 mcg PO DAILY 02/14/24 04/08/24 mcg (1,000 unit) capsule donepezil 10 mg tablet 10 mg PO DAILY 02/14/24 04/08/24 flaxseed oil 1,000 mg capsule 1,000 mg PO DAILY 02/14/24 04/08/24 gabapentin 100 mg capsule 100 mg PO DAILY 02/14/24 04/08/24 melatonin 5 mg capsule mg PO 02/14/24 04/08/24 omega-3 fatty acids 1,000 mg 1,000 mg PO DAILY 02/14/24 04/08/24 capsule omeprazole magnesium 20 mg 20 mg PO DAILY 02/14/24 04/08/24 tablet,delayed release (Prilosec OTC) sertraline 100 mg tablet 100 mg PO DAILY 02/14/24 04/08/24 sertraline 100 mg tablet 100 mg PO DAILY 02/14/24 04/08/24 tamsulosin 0.4 mg capsule 0.4 mg PO DAILY 02/14/24 04/08/24 trospium 20 mg tablet 20 mg PO BID 02/14/24 04/08/24 vitamin E (dl, acetate) 45 mg (100 45 mg PO DAILY 02/14/24 04/08/24 unit) capsule Previous Rx's Medication Instructions Recorded nitrofurantoin macrocrystal 100 mg 100 mg PO BID #14 caps 04/05/24 capsule acetaminophen 650 mg 650 mg PO Q8H PRN fever or pain 04/29/24 tablet,extended release (Tylenol 8 #20 tabs Hour) ibuprofen 400 mg tablet 400 mg PO Q8H PRN pain #20 tabs 04/29/24 nitrofurantoin 100 mg PO Q12H 7 days #14 caps 04/29/24 monohydrate/macrocrystals 100 mg capsule (Macrobid) Allergies Allergy/AdvReac Type Severity Reaction Status Date / Time Penicillins Allergy Intermediate Hives Verified 04/29/24 16:14 Sulfa (Sulfonamide Allergy Verified 04/29/24 16:14 Antibiotics) Review of Systems <Corinne Khan PA-C - Last Filed: 04/29/24 20:06> Review of Systems ROS Unobtainable: All systems reviewed & are unremarkable except as noted in HPI and below Patient History <Corinne Khan PA-C - Last Filed: 04/29/24 20:06> Medical History Parkinson's disease tobacco type: cigarettes Exam <Corinne Khan PA-C - Last Filed: 04/29/24 20:06> Narrative Exam Narrative: GENERAL: 73 year old patient appears stated age. In no acute distress sitting in wheelchair, requires assistance to ambulate. HEAD: Atraumatic. Normocephalic. NECK: Trachea midline. Cervical ROM intact. CARDIOVASCULAR: Regular rate and rhythm. RESPIRATORY: ?Nonlabored respirations. ?Speaking in clear, full sentences. ?Clear to auscultation.? GASTROINTESTINAL: Abdomen soft, non-tender, nondistended. Patient gave verbal consent for external pelvic exam. 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 Patient has normal-appearing external genitalia with no rashes or lesions. EXTREMITIES: No edema or joint tenderness. BACK: Nontender without deformity or crepitance. No flank tenderness. NEURO: Alert and oriented to self, where she lives. ?Clear speech. ? SKIN: No rash or erythema of visible areas Initial Vital Signs Initial Vital Signs: Vital Signs Temperature 98.5 F 04/29/24 16:07 Pulse Rate 86 04/29/24 16:07 Respiratory Rate 18 04/29/24 16:07 Blood Pressure 116/57 L 04/29/24 16:07 Pulse Oximetry 95 04/29/24 16:07 Oxygen Delivery Method Room Air 04/29/24 16:07 <Miesha Pedroza MD - Last Filed: 04/29/24 22:28> Initial Vital Signs Initial Vital Signs: Vital Signs Temperature 98.5 F 04/29/24 16:07 Pulse Rate 86 04/29/24 16:07 Respiratory Rate 18 04/29/24 16:07 Blood Pressure 116/57 L 04/29/24 16:07 Pulse Oximetry 95 04/29/24 16:07 Oxygen Delivery Method Room Air 04/29/24 16:07 Course <Corinne Khan PA-C - Last Filed: 04/29/24 20:06> Orders Ordered: ED Orders 04/29/24 18:45 Urinalysis and Microscopic Stat Urine Culture Stat Discontinued Medications Acetaminophen (Acetaminophen 325 Mg Tablet) 650 mg PO NOW ONE Stop: 04/29/24 17:07 Last Admin: 04/29/24 17:13 Dose: 650 mg Documented By: AMARI Carbidopa/Levodopa (Carbidopa-Levodopa 25/100 Tablet) 2 each PO NOW ONE Stop: 04/29/24 19:32 Last Admin: 04/29/24 19:51 Dose: 2 each Documented By: DEBRA Ibuprofen (Ibuprofen 400 Mg Tablet) 400 mg PO NOW ONE Stop: 04/29/24 17:07 Last Admin: 04/29/24 17:13 Dose: 400 mg Documented By: AMARI Nitrofurantoin Macrocrystals (Nitrofurantoin Er 100 Mg Capsule) 100 mg PO NOW ONE Stop: 04/29/24 19:43 Last Admin: 04/29/24 19:51 Dose: 100 mg Documented By: DEBRA Consultations Consultation #1: Spoke with urologist Dr. Martell who is agreeable to macrobid bid x 7. Time: 19:58 Vital Signs Vital signs: Vital Signs - 8 hr 04/29/24 16:07 04/29/24 19:21 04/29/24 20:43 Temperature 98.5 F 98.5 F Pulse Rate 86 93 H 86 Respiratory Rate 18 18 16 Blood Pressure 116/57 L 160/81 H 174/81 H Pulse Oximetry 95 98 93 Oxygen Delivery Method Room Air Room Air <Miesha Pedroza MD - Last Filed: 04/29/24 22:28> Orders Ordered: ED Orders 04/29/24 18:45 Urinalysis and Microscopic Stat Urine Culture Stat Discontinued Medications Acetaminophen (Acetaminophen 325 Mg Tablet) 650 mg PO NOW ONE Stop: 04/29/24 17:07 Last Admin: 04/29/24 17:13 Dose: 650 mg Documented By: AMARI Carbidopa/Levodopa (Carbidopa-Levodopa 25/100 Tablet) 2 each PO NOW ONE Stop: 04/29/24 19:32 Last Admin: 04/29/24 19:51 Dose: 2 each Documented By: DEBRA Ibuprofen (Ibuprofen 400 Mg Tablet) 400 mg PO NOW ONE Stop: 04/29/24 17:07 Last Admin: 04/29/24 17:13 Dose: 400 mg Documented By: AMARI Nitrofurantoin Macrocrystals (Nitrofurantoin Er 100 Mg Capsule) 100 mg PO NOW ONE Stop: 04/29/24 19:43 Last Admin: 04/29/24 19:51 Dose: 100 mg Documented By: DEBRA Vital Signs Vital signs: Vital Signs - 8 hr 04/29/24 16:07 04/29/24 19:21 04/29/24 20:43 Temperature 98.5 F 98.5 F Pulse Rate 86 93 H 86 Respiratory Rate 18 18 16 Blood Pressure 116/57 L 160/81 H 174/81 H Pulse Oximetry 95 98 93 Oxygen Delivery Method Room Air Room Air MDM - Female Genitourinary <Corinne Khan PA-C - Last Filed: 04/29/24 20:06> Medical Records Attestation: I reviewed the patient's medical records. Lab Data Labs: Lab Results 04/29/24 Range/Units 18:45 Urine Color Crook Urine Appearance Slightly cloudy Urine pH TNP Ur Specific [place] TNP Urine Protein TNP Urine Glucose (UA) TNP Urine Ketones TNP Urine Occult Blood TNP Urine Nitrate TNP Urine Bilirubin TNP Urine Urobilinogen TNP Ur Leukocyte Esterase TNP Urine RBC 0-1/hpf (0-5/HPF) Urine WBC 30-100/hpf H (0-5/HPF) Ur Squamous Epith Cells None seen (0-5/HPF) Urine Bacteria Moderate (10-30) H (None) Ur Culture Indicated? Specimen cultured Vol Urine Centrifuged 10ml (spun) MDM Narrative Medical decision making narrative: 73-year-old female with a past medical history of chronic pelvic pain, Parkinson's disease, dementia, incomplete bladder emptying, recurrent UTIs who presents to the emergency department via EMS from her assisted living facility for pelvic pain x2 days. Differential diagnosis includes but is not limited to recurrent UTI, atrophic vaginitis, muscle spasm, bladder spasm, constipation, vulvovaginal candidiasis, etc. On exam the patient is in no acute distress, nontoxic appearing, vital signs within normal limits. Abdomen soft and nontender. Normal external exam. Prior record review reveals that the patient was seen on 04/05/2024 in the ER for pyelonephritis/UTI. She was treated with Macrobid x7 days and advised to follow up with Urology. Patient had a urine culture on 04/19/2024 which showed E coli growth that is resistant to numerous antibiotics. Pt saw urology Dr. Ge Martell 02/14/24 and 04/08/24. At that time they recommended increased fluid intake, topical vaginal estrogen cream, probiotics, cranberry extract, D-Mannose, Methenamine. They advised follow up in 4 weeks for a repeat postvoid residual. We will repeat UA. Treat pain with ibuprofen and Tylenol. Patient does wear briefs which makes collecting urine sample difficult. She attempted to void independently x2 after drinking water. Bladder scanner reveals 120cc. Discussed with attending ER physician. We will proceed with straight catheter to rule out urinary infection however patient does not need Starr catheter at this time. In addition patient does refuse Starr but is agreeable to straight cath. At this time patient is pain-free. Straight cath performed with return of bright orange urine, pt states she is on Azo. Sent for urine micro. 7pm home dose of Carbidopa-Levodopa ordered as pt is awaiting transport back to [facility]. UA with 30-100 urine WBCs, Moderate bacteria. Due to Azo, remainder of UA TNP. Urine culture sent. Considered waiting to treat until urine culture results however patient's urinalysis today compared to 04/19/2024 does show increase in white blood cells. At that time her urine culture was positive with E coli showing susceptibility to nitrofurantoin. Therefore we will initiate nitrofurantoin while urine culture is pending to prevent worsening infection. Patient needs to follow up with urologist soon as possible for repeat evaluation. I spoke with her urologist Dr. Martell who agrees with plan. Patient verbalized understanding of all information and is stable for transfer back to her assisted living facility. ER return precautions discussed. <Miesha Pedroza MD - Last Filed: 04/29/24 22:28> Lab Data Labs: Lab Results 04/29/24 Range/Units 18:45 Urine Color Crook Urine Appearance Slightly cloudy Urine pH TNP Ur Specific [place] TNP Urine Protein TNP Urine Glucose (UA) TNP Urine Ketones TNP Urine Occult Blood TNP Urine Nitrate TNP Urine Bilirubin TNP Urine Urobilinogen TNP Ur Leukocyte Esterase TNP Urine RBC 0-1/hpf (0-5/HPF) Urine WBC 30-100/hpf H (0-5/HPF) Ur Squamous Epith Cells None seen (0-5/HPF) Urine Bacteria Moderate (10-30) H (None) Ur Culture Indicated? Specimen cultured Vol Urine Centrifuged 10ml (spun) Discharge Plan Departure Patient Disposition: Home Clinical Impression: Recurrent urinary tract infection, Pelvic pain Instructions: DI for Urinary Tract Infection (UTI) Activity Restrictions/Additional Instructions: Today we performed an in and out catheter to obtain a urine sample. The urine sample did show many white blood cells which is concerning for urinary tract infection. We are starting you on an antibiotic based on your last urine culture result, however a new urine culture result was sent and you will be called in 3 days if an antibiotic change needs to be made. Please increase your daily water intake and avoid holding your bladder. Please follow up with your urologist, Dr. Martell, as soon as possible. I have also sent ibuprofen and acetaminophen to your pharmacy if needed for pain. Please return to the ER if you develop fevers, vomiting, worsening pain, inability to urinate or any other concern. Please follow up with your primary care doctor within the next 2-3 days for ER follow-up. (If you do not have a PCP you can call [phone]. ?to schedule an appointment with an [facility] Primary Care Provider) IF YOU DEVELOP ANY NEW OR WORSENING SYMPTOMS, RETURN TO THE ER! Please read the attached instructions, they highlight more specific treatments and interventions for you at home. Thank you for letting me participate in your care, Corinne Khan PA-C Prescriptions: New nitrofurantoin monohyd/m-cryst [Macrobid] 100 mg capsule 100 mg PO Q12H 7 Days Qty: 14 0RF Rx Instructions: must administer with a meal/food acetaminophen [Tylenol 8 Hour] 650 mg tablet extended release 650 mg PO Q8H PRN (Reason: fever or pain) Qty: 20 0RF ibuprofen 400 mg tablet 400 mg PO Q8H PRN (Reason: pain) Qty: 20 0RF No Action carbidopa-levodopa 25-100 mg tablet extended release 2 tab PO TID nitrofurantoin macrocrystal 100 mg capsule 100 mg PO BID Qty: 14 0RF Rx Instructions: must administer with a meal/food tamsulosin 0.4 mg capsule 0.4 mg PO DAILY omega-3 fatty acids 1,000 mg capsule 1,000 mg PO DAILY vitamin E (dl, acetate) 45 mg (100 unit) capsule 45 mg PO DAILY cholecalciferol (vitamin D3) 25 mcg (1,000 unit) capsule 25 mcg PO DAILY flaxseed oil 1,000 mg capsule 1,000 mg PO DAILY Rx Instructions: administer with a meal melatonin 5 mg capsule PO gabapentin 100 mg capsule 100 mg PO DAILY donepezil 10 mg tablet 10 mg PO DAILY trospium 20 mg tablet 20 mg PO BID Rx Instructions: administer on an empty stomach sertraline 100 mg tablet 100 mg PO DAILY omeprazole magnesium [Prilosec OTC] 20 mg tablet,delayed release (DR/EC) 20 mg PO DAILY sertraline 100 mg tablet 100 mg PO DAILY Referrals: Ge Martell DO [Physician] - (recurrent UTI and incomplete bladder emptying, pelvic pain with empty bladder ) Miscellaneous,Doctor, MD [Primary Care Provider] - Stand Alone Forms: Patient Portal/API/Survey ED Sign-out <Miesha Pedroza MD - Last Filed: 04/29/24 22:28> Cosign ED Attending Cosignature Attestation: I saw and evaluated this patient. Agree with JOSSELYN plan
[2024-04-29] MEDS: ACETAMINOPHEN 325 MG TABLET 650 MG PO (17:13)
[2024-04-29] MEDS: IBUPROFEN 400 MG TABLET PO (17:13)
[2024-04-29 19:08] LABS: Appearance Urine UA Slightly Cloudy; Color Urine UA ORANGE
[2024-04-29 19:14] LABS: Bacteria Urine Moderate (10-30); Culture Indicated Urine Specimen Cultured; RBC Urine 0-1/HPF (0-5/HPF); Squamous Epithelial Cell Urine None Seen (0-5/HPF); Urine Volume 10mL (spun); WBC Urine 30-100/HPF (0-5/HPF)
[2024-04-29 19:21] VITALS: BP 160/81; PULSE 93; RESP 18; O2SAT 98
[2024-04-29] MEDS: CARBIDOPA-LEVODOPA 25/100 TABLET 2 EACH PO (19:51)
[2024-04-29] MEDS: NITROFURANTOIN ER 100 MG CAPSULE PO (19:51)
--- NOTE | 2024-04-29 20:15 | PC.NURSE ---
Message left on confidential nurse line at [facility] to notify them that pt will be returning this evening, pickling grader time ETA 2049
[2024-04-29 20:43] VITALS: BP 174/81; PULSE 86; RESP 16; TEMP 36.9; O2SAT 93
--- NOTE | 2024-04-29 20:52 | PC.NURSE ---
Report called to [facility] villalobos [place]
== END 2024-04-29 21:31 | disposition home or self-care (01) ==
PROVIDERS: Emergency Provider Physician Assistant
DX: N39.0 Urinary tract infection, site not specified (principal); R10.2 Pelvic and perineal pain; G20.A1 Parkinson's disease without dyskinesia, without mention of fluctuations
CPT/HCPCS: 51701; 51798; 81001; 87077; 87086; 87186; 99283

== ENCOUNTER 2024-05-11 06:57 | Inpatient (IN) | payer MEDICARE, MEDICAID, SELFPAY ==
[2024-05-11] VITALS (19 sets, daily range): BP systolic 118–142; BP diastolic 51–63; PULSE 61–93; RESP 14–17; TEMP 36.2–36.7; O2SAT 94–98; BMI 22.3
--- NOTE | 2024-05-11 07:06 | ED_ITS ---
HPI - Altered Mental Status General Chief Complaint: Abdominal Pain Stated Complaint: AMS Time Seen by Provider: 05/11/24 07:06 History of Present Illness HPI narrative: Patient is 73-year-old female history of chronic pelvic pain, recurrent UTI's, Parkinson's with deep brain stimulator resides at long-term care facility presenting today with altered mental status and some pelvic pain. She is chronic UTIs. She reports that some cream or something was put in her vagina she feels like it has a little bit more irritated. She seems extremely weak she has an overall poor historian. She has no one listed in her contacts. She reports that she was able to feed herself and get herself dressed let yesterday and last week but today extremely weakness She grew multi-drug resistant E coli 04/29/2024 she was placed on Macrobid. She is allergic to penicillin but has previously tolerated Keflex also allergy to Bactrim Related Data Home Medications Medication Instructions Recorded Confirmed carbidopa ER 25 mg-levodopa 100 mg 2 tab PO TID 12/31/23 05/01/24 tablet,extended release cholecalciferol (vitamin D3) 25 25 mcg PO DAILY 02/14/24 05/01/24 mcg (1,000 unit) capsule donepezil 10 mg tablet 10 mg PO DAILY 02/14/24 05/01/24 flaxseed oil 1,000 mg capsule 1,000 mg PO DAILY 02/14/24 05/01/24 gabapentin 100 mg capsule 100 mg PO DAILY 02/14/24 05/01/24 melatonin 5 mg capsule mg PO 02/14/24 05/01/24 omega-3 fatty acids 1,000 mg 1,000 mg PO DAILY 02/14/24 05/01/24 capsule tamsulosin 0.4 mg capsule 0.4 mg PO DAILY 02/14/24 05/01/24 trospium 20 mg tablet 20 mg PO BID 02/14/24 05/01/24 Previous Rx's Medication Instructions Recorded nitrofurantoin macrocrystal 100 mg 100 mg PO BID #14 caps 04/05/24 capsule acetaminophen 650 mg 650 mg PO Q8H PRN fever or pain 04/29/24 tablet,extended release (Tylenol 8 #20 tabs Hour) ibuprofen 400 mg tablet 400 mg PO Q8H PRN pain #20 tabs 12/17/24 Allergies Allergy/AdvReac Type Severity Reaction Status Date / Time Penicillins Allergy Intermediate Hives Verified 05/11/24 07:24 corn Allergy Unknown Verified 05/11/24 07:24 Sulfa (Sulfonamide Allergy Verified 05/11/24 07:24 Antibiotics) Patient History Medical History Parkinson's disease Social History household members: none Smoking Status: Former smoker Smoking Status: Former smoker tobacco type: cigarettes alcohol intake frequency: holidays/special occasions only Exam Initial Vital Signs Initial Vital Signs: Vital Signs Temperature 97.3 F L 05/11/24 07:05 Pulse Rate 61 05/11/24 07:05 Respiratory Rate 14 05/11/24 07:05 Blood Pressure 142/63 H 05/11/24 07:05 Pulse Oximetry 95 05/11/24 07:05 Oxygen Delivery Method Room Air 05/11/24 07:05 GENERAL: Alert thin weak 73-year-old female HEENT: Head atraumatic,EOMI, pupils reactive, face symmetric, moist mucous membranes CARDIOVASCULAR: Regular rate and rhythm without murmurs, rubs or gallops. RESPIRATORY: Breath sounds equal bilaterally, no wheezes rales or rhonchi. ABDOMEN: Soft, nontender. Normoactive bowel sounds all 4 quadrants. No guarding or rebound. : External vaginal exam no obvious redness or erythema EXTREMITIES: Normal range of motion, no clubbing or edema. Neurovascularly intact NEUROLOGICAL: Alert and oriented x4. Moving all extremities SKIN: Warm, dry, no laceration, no petechiae, no rashes or lesions. Course Orders Ordered: ED Orders 05/11/24 07:10 CBC Auto Diff [Complete Blood Count AUTO DIFF] Stat CMP [Comprehensive Metabolic Panel] Stat Lactate (Lactic Acid) Stat 05/11/24 08:05 UA Complete [Urinalysis and Microscopic] Stat Urine Culture Stat 05/11/24 10:08 Consult to INFORMATICA ARCHITECT - Public Works Commissioner Stat Discontinued Medications Acetaminophen (Acetaminophen 325 Mg Tablet) 975 mg PO NOW ONE Stop: 05/11/24 13:01 Last Admin: 05/11/24 13:35 Dose: 975 mg Documented By: SPF Ertapenem 1 gm/ Sodium (Chloride) 100 mls @ 200 mls/hr IV NOW ONE Stop: 05/11/24 08:38 Last Infusion: 05/11/24 10:48 Dose: Infused Documented By: Admin: 05/11/24 09:12 Dose: 200 mls/hr Documented By: FARIHA Vital Signs Vital signs: Vital Signs - 8 hr 05/11/24 07:05 05/11/24 07:31 05/11/24 08:13 Temperature 97.3 F L Pulse Rate 61 67 76 Respiratory Rate 14 Blood Pressure 142/63 H Pulse Oximetry 95 98 96 Oxygen Delivery Method Room Air Room Air Room Air 05/11/24 08:30 05/11/24 09:00 05/11/24 09:30 Temperature Pulse Rate 65 72 75 Respiratory Rate Blood Pressure Pulse Oximetry 95 96 96 Oxygen Delivery Method Room Air 05/11/24 10:00 05/11/24 10:30 05/11/24 11:00 Temperature Pulse Rate 78 91 H 86 Respiratory Rate Blood Pressure Pulse Oximetry 97 98 95 Oxygen Delivery Method 05/11/24 11:30 05/11/24 12:00 05/11/24 12:30 Temperature Pulse Rate 82 84 89 Respiratory Rate Blood Pressure Pulse Oximetry 95 95 94 Oxygen Delivery Method 05/11/24 13:00 Temperature Pulse Rate 88 Respiratory Rate Blood Pressure Pulse Oximetry 95 Oxygen Delivery Method MDM - Altered Mental Status Lab Data 05/11/24 07:10 05/11/24 07:10 Labs: Lab Results 05/11/24 05/11/24 Range/Units 07:10 08:05 WBC 6.5 (4.5-11.0) X10^3/uL RBC 3.69 L (4.0-5.2) X10^6/uL Hgb 11.9 L (12.0-16.0) g/dL Hct 36.1 (36-46) % MCV 98.0 (80-100) fL MCH 32.3 (26-34) PG MCHC 32.9 (30-36) % RDW 13.1 (11.6-14.8) % Plt Count 223 (150-400) X10^3/uL Neut % (Auto) 48.1 L (50-75) % Lymph % (Auto) 38.9 (25-40) % [place] % (Auto) 8.0 (3-14) % Eos % (Auto) 4.3 H (2-4) % Baso % (Auto) 0.7 (0-2) % Neut # (Auto) 3100 (2984-4970) /uL Lymph # (Auto) 2500 (3494-7233) /uL Henry # (Auto) 500 (0-900) /uL Eos # (Auto) 300 (0-450) /uL Baso # (Auto) 0 (0-100) /uL Sodium 141 (137-145) mmol/L Potassium 3.9 (3.4-5.1) mmol/L Chloride 110 H (98-107) mmol/L Carbon Dioxide 28 (22-32) mmol/L BUN 16 (7-17) mg/dL Creatinine 0.67 (0.52-1.04) mg/dL Estimated GFR > 60 (>60) mL/min BUN/Creatinine Ratio 23.9 H (6-22) Glucose 95 (80-110) mg/dL Lactate 1.2 (0.7-2.1) mmol/L Calcium 9.1 (8.4-10.2) mg/dL Total Bilirubin 0.4 (0.2-1.3) mg/dL AST 34 (14-36) IU/L ALT 14 (<35) IU/L Alkaline Phosphatase 82 (38-126) U/L Total Protein 6.8 (6.3-8.2) g/dL Albumin 4.1 (3.5-5.0) g/dL Globulin 2.7 (1.7-4.1) g/dL Albumin/Globulin Ratio 1.5 (1.0-2.8) Urine Color Yellow Urine Appearance Sl cloudy Urine pH 6.0 (4.5-8.0) Ur Specific [place] 1.025 (1.000-1.035) Urine Protein Trace H (Negative) Urine Glucose (UA) Negative (Negative) g/dL Urine Ketones Trace H (NEGATIVE) Urine Occult Blood Negative (Negative) Urine Nitrate Positive H (Negative) Urine Bilirubin Negative (NEGATIVE) Urine Urobilinogen 0.2 (0.2) E.U./dL Ur Leukocyte Esterase 1+ H (NEGATIVE) Urine RBC 0-1/hpf (0-5/HPF) Urine WBC 10-30/hpf H (0-5/HPF) Ur Squamous Epith Cells None seen (0-5/HPF) Urine Bacteria Many (>30) H (None) Ur Culture Indicated? Specimen cultured Vol Urine Centrifuged 10ml (spun) MDM Narrative Medical decision making narrative: MDM CC: Pelvic pain Complicating co-morbidities: Chronic pelvic pain chronic UTI Data collected from: Previous visits, EMS Differential considered: Sepsis Exam documented above, pertinent findings include: Weak 73-year-old female abdomen is soft external vaginal exam appears normal no rashes Lab Test results independently reviewed as above. Pertinent findings: No leukocytosis no significant anemia, electrolytes within normal limits creatinine Urinalysis Imaging studies independently reviewed: And none Consultations: Dr. Nova accepts patient Treatments: Ertapenem Re-evaluations: Patient seems extremely weak what she was able to answer questions. Discussion: 73-year-old female chronically pelvic pain chronic UTIs presenting today with the same. She was multi-drug resistant E coli currently on Macrobid or finished a course of Macrobid. She is allergic to Bactrim and penicillin. She was previously given a dose of Keflex back in December in the following day and was shaky did not have any signs of like allergic reaction there was no evidence or mentioned of urticaria or anaphylaxis nonetheless she was switched over to Macrobid. Due to multi drug resistance and allergy to Bactrim probably needs IV antibiotics, although she has no evidence of sepsis. No leukocytosis no lactic acidosis Long discussion with patient in regards to treatment. She has a POLST form which is DNR comfort measures and actually says no antibiotics. I have spoken with her in regards to treatment she would need to stay in the hospital with IV antibiotics due to multidrug resistance and allergies to medications versus home with hospice. At this time she reports that yesterday she was able to feed herself and get herself dressed today she is too weak to be able to do so. Reasonable for IV antibiotics no aggressive measures. She understands completely if UTI is not treated in will eventually occur. She has capacity. Multiple efforts in regards to finding her DPOA Elmo.There is no phone number. Social work has worked very hard on trying to find friends. Patient reports that she has no family but the gym is her point of contact, but she does not have this number. 1. Escherichia coli M.I.C. RX --------- --- * Amoxicillin/Clavulanate 16 I * Ampicillin >=32 R * Ampicillin/Sulbactam >=32 R * Cefazolin >=64 R * Cefepime >=64 R * Ceftazidime R * Ceftriaxone >=64 R * Ciprofloxacin >=4 R * Ertapenem <=0.5 S * Gentamicin <=1 S * Imipenem <=0.25 S * Levofloxacin >=8 R * Nitrofurantoin <=16 S * Tobramycin <=1 S * Trimethoprim/Sulfamethoxazole <=20 S * Piperacillin/Tazobactam 16 S Discharge Plan Departure Patient Disposition: Admitted As Inpatient Clinical Impression: Recurrent UTI Admit Date/Time: 05/11/24 13:24 Admit Provider: Sahil Nova V
[2024-05-11 07:28] LABS: Add Manual Diff / Slide Review NO; Basophils Absolute Auto 0 /uL (0-100); Basophils Percent Auto 0.7 % (0-2); Eosinophils Absolute Auto 300 /uL (0-450); Eosinophils Percent Auto 4.3 % (2-4); Hematocrit 36.1 % (36-46); Hemoglobin 11.9 g/dL (12.0-16.0); Lymphocytes Absolute Auto 2500 /uL (1100-4500); Lymphocytes Percent Auto 38.9 % (25-40); Mean Corpuscular HGB Conc 32.9 % (30-36); Mean Corpuscular Hemoglobin 32.3 PG (26-34); Monocytes Absolute Auto 500 /uL (0-900); Neutrophils Absolute Auto 3100 /uL (1500-7000); Neutrophils Percent Auto 48.1 % (50-75); Platelet Count 223 X10^3/uL (150-400); Red Blood Cell Count 3.69 X10^6/uL (4.0-5.2); Red Cell Distribution Width 13.1 % (11.6-14.8); White Blood Cell Count 6.5 X10^3/uL (4.5-11.0)
[2024-05-11 07:40] LABS: Alanine Aminotransferase 14 IU/L (<35); Albumin 4.1 g/dL (3.5-5.0); Albumin Globulin Ratio 1.5 (1.0-2.8); Alkaline Phosphatase 82 U/L (38-126); Aspartate Aminotransferase 34 IU/L (14-36); BUN Creatinine Ratio 23.9 (6-22); Bilirubin Total 0.4 mg/dL (0.2-1.3); Blood Urea Nitrogen 16 mg/dL (7-17); Calcium 9.1 mg/dL (8.4-10.2); Carbon Dioxide 28 mmol/L (22-32); Chloride 110 mmol/L (98-107); Estimated Glomerular Filt Rate > 60 mL/min (>60); Globulin 2.7 g/dL (1.7-4.1); Glucose 95 mg/dL (80-110); HEMOLYSIS < 15 (0-50); Potassium 3.9 mmol/L (3.4-5.1); Sodium 141 mmol/L (137-145); Total Protein 6.8 g/dL (6.3-8.2)
[2024-05-11 07:41] LABS: Lactate (Lactic Acid) 1.2 mmol/L (0.7-2.1)
[2024-05-11 08:12] LABS: Appearance Urine UA SL CLOUDY; Bilirubin Urine UA NEGATIVE (NEGATIVE); Color Urine UA YELLOW; Glucose Urine UA NEGATIVE (Negative); Ketones Urine UA TRACE (NEGATIVE); Leukocyte Esterase Urine UA 1+ (NEGATIVE); Nitrite Urine UA POSITIVE (Negative); Occult Blood Urine UA NEGATIVE (Negative); Protein Urine UA TRACE (Negative); Specific Gravity Urine UA 1.025 (1.000-1.035); Urobilinogen Urine UA 0.2 E.U./dL (0.2)
[2024-05-11 08:18] LABS: Bacteria Urine Many (>30); Culture Indicated Urine Specimen Cultured; RBC Urine 0-1/HPF (0-5/HPF); Squamous Epithelial Cell Urine None Seen (0-5/HPF); Urine Volume 10mL (spun); WBC Urine 10-30/HPF (0-5/HPF)
[2024-05-11] MEDS: ERTAPENEM 1 GM in SODIUM CHLORIDE 0.9% 100 ML IV (09:12)
--- NOTE | 2024-05-11 13:00 | PC.NURSE ---
patient called for assistance and when I went in to answer the call light the patient asked for her nurse, I had told her that her assigned nurse was busy at the moment but I would be happy to pass off a message. The patient said I want to talk to her about the end. I asked for further clarification and the patient stated I want to talk to her about the end of my life. I told the patient that her nurse was currently busy but would be happy to have social work pop in and check in with her. I made the patient nurse LORAINE Tierney aware of the comments made and that I was going to notifiy social work.
[2024-05-11] MEDS: ACETAMINOPHEN 325 MG TABLET 975 MG PO (13:35)
--- NOTE | 2024-05-11 13:37 | CM.DANOTE ---
Addendum entered by NAYA Barone 05/11/24 14:37: DCP amended: ED MIXING OPERATOR received return call from David Zamora RN. It was reported that pt has POA, Elmo Ugarte, listed on her chart but [facility] does not have an updated phone number. ED MIXING OPERATOR discussed with David RN that pt requested someone look in her phone on her desk for his phone number but David RN stated they could not do that. ED MIXING OPERATOR confirmed that aix administrator Fernando Abarca will be available tomorrow, 05/12 at [phone]. KVNG Hines Original Note: DCP Assessment Note: Pt is a 73yo female, resident of [place], is admitted for urosepsis. Pt lives at [facility]. Pt's Primary Care Provider is Dr. Ramesh Saleh (paty GARZA for [facility]) and insurance is Medicare. Reviewed chart and team rounds for pt's medical status and initial discharge needs. DCP met w/patient at bedside; introduced self and role. Patient was found in bed, oriented, cooperative with assessment and kept eyes closed for most of the assessment. Pt speaks softly. Pt confirmed living situation and good support in [facility] staff. Pt expressed preference in IV abx treatment then dc back to facility. Pt has a no hx of home health, none noted in pt chart. Pt explained she is typically independent with ADLs with some help from [facility] staff with monitoring while she is in the shower. Pt reports her Emergency Contact is Elmo Ugarte who is her POA. No POA paperwork found in pt chart, ED MIXING OPERATOR attempted many times to connect with [facility] for more information. Will continue efforts thoughout the day. Pt POLST in chart which states pt is DNR/DNI. Plan: Anticipating discharge back to [facility] after abx course and medically stable, will need to be transported by [facility]. CM team will follow closely for coordination of discharge plans. KVNG Pete Discharge Planning/Care Management CM Discharge Assessment Start: 05/11/24 13:29 Freq: Status: Active Protocol: Document 05/11/24 13:30 MW (Rec: 05/11/24 13:35 MW [id number]) Discharge Planning Assessment Assigned Field Sales Consultant NAYA Hughes DPOA/Assigned Designee Name Elmo SYLVAIN Ugarte Contact Information (No phone number available) Advance Directives? Yes: POLST - DNR/DNI History Provided By Patient,Medical Record Has Patient been admitted in last 30 No days? Prior Living Arrangements Adult Family Home Household Members none Type of transporation used prior to Relies on Others admit Facility Name Admitted From: [facility] Willing to Return to Facility? Yes Independent with ADL's Yes Is patient alert and oriented? Yes Needs Assistance With Bathing,Meal Prep,Managing Medications,Home Chores / Shopping Caregiver for Another No DME Already Rented / Owned Wheelchair Barriers to Discharge No Discharge Plan Home Review Status In Process Please Provide Date Initial DC 05/11/24 Assessment Was Performed Next Review Type Continued Stay Review
--- NOTE | 2024-05-11 14:32 | P.HP_ITS ---
History of Present Illness History of Present Illness Date Patient Seen: 05/11/24 Time Patient Seen: 15:30 Chief complaint: AMS Narrative: 73-year-old woman residing at [facility] assisted living facility with a history of recurrent urinary tract infections, presents with progressive weakness after recently culturing multidrug resistant E coli 04/29/2024, treated with nitrofurantoin, sensitive to sulfa but with stated allergies to sulfa and penicillin. However, she states that these reactions were told to her by her mother when she was very young. She does not know of any history of rash or anaphylaxis. She has Parkinson's and is chronically wheelchair-bound. She states that she would be willing to accept treatment for her urinary infection no otherwise does not wish aggressive care and states do not resuscitate code status. She has a surrogate caregiver who she is known for several decades, who also works at her assisted living facility named Elmo Benítez, and is estranged from her son. [facility] Medical History Parkinson's disease Social History household members: none Smoking Status: Former smoker Meds Home Medications and Allergies Home Medications Medication Instructions Recorded Confirmed Type carbidopa ER 25 mg-levodopa 100 mg 2 tab PO TID 12/31/23 05/01/24 History tablet,extended release cholecalciferol (vitamin D3) 25 25 mcg PO DAILY 02/14/24 05/01/24 History mcg (1,000 unit) capsule donepezil 10 mg tablet 10 mg PO DAILY 02/14/24 05/01/24 History flaxseed oil 1,000 mg capsule 1,000 mg PO DAILY 02/14/24 05/01/24 History gabapentin 100 mg capsule 100 mg PO DAILY 02/14/24 05/01/24 History melatonin 5 mg capsule mg PO 02/14/24 05/01/24 History omega-3 fatty acids 1,000 mg 1,000 mg PO DAILY 02/14/24 05/01/24 History capsule tamsulosin 0.4 mg capsule 0.4 mg PO DAILY 02/14/24 05/01/24 History trospium 20 mg tablet 20 mg PO BID 02/14/24 05/01/24 History nitrofurantoin macrocrystal 100 mg 100 mg PO BID #14 caps 11/23/24 12/19/24 Rx capsule acetaminophen 650 mg 650 mg PO Q8H PRN fever or pain 04/29/24 05/01/24 Rx tablet,extended release (Tylenol 8 #20 tabs Hour) ibuprofen 400 mg tablet 400 mg PO Q8H PRN pain #20 tabs 04/29/24 05/01/24 Rx Allergies Allergy/AdvReac Type Severity Reaction Status Date / Time Penicillins Allergy Intermediate Hives Verified 05/11/24 07:24 corn Allergy Unknown Verified 05/11/24 07:24 Sulfa (Sulfonamide Allergy Verified 05/11/24 07:24 Antibiotics) Review of Systems Review of Systems ROS: Yes All systems reviewed with the patient and are negative except as otherwise documented Exam Vital Signs (past 8 hours): - 05/11/24 07:05 05/11/24 07:31 05/11/24 08:13 Temperature 97.3 F L Pulse Rate 61 67 76 Respiratory Rate 14 Blood Pressure 142/63 H Pulse Oximetry 95 98 96 Oxygen Delivery Method Room Air Room Air Room Air 05/11/24 08:30 05/11/24 09:00 05/11/24 09:30 Temperature Pulse Rate 65 72 75 Respiratory Rate Blood Pressure Pulse Oximetry 95 96 96 Oxygen Delivery Method Room Air 05/11/24 10:00 05/11/24 10:30 05/11/24 11:00 Temperature Pulse Rate 78 91 H 86 Respiratory Rate Blood Pressure Pulse Oximetry 97 98 95 Oxygen Delivery Method 05/11/24 11:30 05/11/24 12:00 05/11/24 12:30 Temperature Pulse Rate 82 84 89 Respiratory Rate Blood Pressure Pulse Oximetry 95 95 94 Oxygen Delivery Method 05/11/24 13:00 05/11/24 13:30 Temperature Pulse Rate 88 90 Respiratory Rate Blood Pressure Pulse Oximetry 95 95 Oxygen Delivery Method Room Air Oxygen Delivery Method Room Air Narrative Exam Narrative: GENERAL: This is a thin, frail elderly female patient, in no apparent distress. HEAD: Atraumatic. Normocephalic. No temporal or scalp tenderness. EYES: Pupils equal round and reactive. Extraocular motions intact. No scleral icterus. No injection or drainage. ENT: Mucous membranes pink and moist. NECK: Trachea midline. No JVD, bruits or lymphadenopathy. Supple, nontender, no meningeal signs. CARDIOVASCULAR: Regular rate and rhythm without murmurs, gallops, or rubs. RESPIRATORY: Clear to auscultation. GASTROINTESTINAL: Abdomen soft, non-tender, nondistended. EXTREMITIES: No clubbing, cyanosis, or edema. BACK: Nontender without deformity or crepitance. No flank tenderness. NEUROLOGIC: Alert, oriented, speech fluent, full upper and lower motor strength, no focal deficits evident. DERMATOLOGIC: No rashes or skin lesions. Objective Labs 05/11/24 07:10 05/11/24 07:10 Labs: Laboratory Results - last 24 hr 05/11/24 05/11/24 07:10 08:05 WBC 6.5 RBC 3.69 L Hgb 11.9 L Hct 36.1 MCV 98.0 MCH 32.3 MCHC 32.9 RDW 13.1 Plt Count 223 Neut % (Auto) 48.1 L Lymph % (Auto) 38.9 [place] % (Auto) 8.0 Eos % (Auto) 4.3 H Baso % (Auto) 0.7 Neut # (Auto) 3100 Lymph # (Auto) 2500 [place] # (Auto) 500 Eos # (Auto) 300 Baso # (Auto) 0 Sodium 141 Potassium 3.9 Chloride 110 H Carbon Dioxide 28 BUN 16 Creatinine 0.67 Estimated GFR > 60 BUN/Creatinine Ratio 23.9 H Glucose 95 Lactate 1.2 Calcium 9.1 Total Bilirubin 0.4 AST 34 ALT 14 Alkaline Phosphatase 82 Total Protein 6.8 Albumin 4.1 Globulin 2.7 Albumin/Globulin Ratio 1.5 Urine Color Yellow Urine Appearance Sl cloudy Urine pH 6.0 Ur Specific [place] 1.025 Urine Protein Trace H Urine Glucose (UA) Negative Urine Ketones Trace H Urine Occult Blood Negative Urine Nitrate Positive H Urine Bilirubin Negative Urine Urobilinogen 0.2 Ur Leukocyte Esterase 1+ H Urine RBC 0-1/hpf Urine WBC 10-30/hpf H Ur Squamous Epith Cells None seen Urine Bacteria Many (>30) H Ur Culture Indicated? Specimen cultured Vol Urine Centrifuged 10ml (spun) Assessment & Plan Assessment & Plan narrative: 1. Urinary tract infection due to multidrug resistant E coli. She received a dose of IV ertapenem in the emergency department. The organism is sensitive to sulfa. However, the reason for her sulfa allergy is vague and unknown and possibly incorrect at this point. She is willing to try oral sulfa medication. This would be preferable to placement of a PICC line which would necessitate long-term facility placement. She wishes to avoid this and would like to return to her assisted living facility. Given lack of known reaction, a desensitization protocol is not indicated. She will be monitored closely during sulfa antibiotic administration and consider desensitization protocol should she develop a reaction. 2. Weakness due to 1. 3. Parkinson's disease. Clarify home medications and continue. 4. DVT prophylaxis: Lovenox. 5. Code status: Do not resuscitate. She clearly states this wish and has a POLST form enclosed in the chart. The patient is admitted inpatient status as she will require 2 midnights of inpatient level care. Quality MIPS - Admit I confirm the patient?s Advance Care Plan is present, Code status is documented, Surrogate decision maker is in patient?s record [If Yes, STOP here]: Yes MIPS - Meds 'Current medications' to include all prescriptions, [id number] products, herbals, cannabis/cannabidiol products, and vitamin/mineral/dietary (nutritional) supplements. I have utilized all available resources to obtain, update, or review the patient?s current medications. [If Yes, STOP here]: Yes PROFEE Charge Codes Initial inpatient/observation care: [id number]
[2024-05-11] MEDS: TRIMETH/SULFA 160/800 (DS) TABLET 1 TAB PO ×2 (16:05→20:25)
[2024-05-11] MEDS: ACETAMINOPHEN 325 MG TABLET 650 MG PO (16:05)
[2024-05-11] MEDS: PHENAZOPYRIDINE 100 MG TABLET PO ×2 (16:13→20:25)
[2024-05-11] MEDS: MELATONIN 3 MG TABLET 6 MG PO (20:25)
[2024-05-11] MEDS: CARBIDOPA-LEVODOPA ER 50/200 TABLET 1 EACH PO (20:25)
[2024-05-12] VITALS: BP 112/53; PULSE 69; RESP 18; TEMP 36.1; O2SAT 93
[2024-05-12 04:00] VITALS: BP 144/58; PULSE 76; RESP 17; TEMP 36.2; O2SAT 94
[2024-05-12] MEDS: ACETAMINOPHEN 325 MG TABLET 650 MG PO ×2 (06:34→16:37)
[2024-05-12] MEDS: ENTACAPONE 200 MG TABLET 100 MG PO ×4 (06:35→15:42)
[2024-05-12] MEDS: CARBIDOPA-LEVODOPA 25/100 TABLET 2 EACH PO ×4 (06:35→15:42)
[2024-05-12 08:00] VITALS: BP 137/48; PULSE 87; RESP 20; TEMP 36.4; O2SAT 97
[2024-05-12] MEDS: MEROPENEM 1 GM in SODIUM CHLORIDE 0.9% 100 ML IV ×3 (09:10→23:46)
[2024-05-12] MEDS: TAMSULOSIN 0.4 MG CAPSULE PO (09:13)
[2024-05-12] MEDS: ENOXAPARIN 40 MG/0.4 ML SYRINGE SUBCUT (09:13)
[2024-05-12] MEDS: PHENAZOPYRIDINE 100 MG TABLET PO ×3 (09:13→20:16)
[2024-05-12] MEDS: GABAPENTIN 100 MG CAPSULE PO (09:13)
[2024-05-12 12:00] VITALS: BP 128/56; PULSE 80; RESP 17; TEMP 36.4; O2SAT 96
[2024-05-12] MEDS: ONDANSETRON 4 MG ODT SL (13:57)
--- NOTE | 2024-05-12 15:14 | CM.DPNOTE ---
DCP Note ATM MANAGER reviewed EMR. per hospitalist in morning rounds, pt will need 1 week of IV meropenem 1gm Q8. PICC/midline needed. Per chart review, pt's POA is friend, Elmo Ugarte. Works for as well. per chart, struggled to get his contact information and not on file at [facility]. Per Samina at , KINDLY provided Elmo's contact for our records (p [phone]). Per Samina at , can accept pt. 3rd midnight=Dc Sunday. transport time pending. Per can sealer, plan to get PICC/mid Sunday morning. ATM MANAGER entered room and introduced self and role. Pt reports feeling much less confused today than yesterday. Appreciative of having Elmo's number now. Reviewed DCP, in agreement with going to for IV abx and then returning to [facility]. ATM MANAGER answered questions to best of ability. ATM MANAGER completed PASRR. ATM MANAGER spoke with Fernando at [facility] ([phone] ext [phone]) and updated on plan. In agreement. provider their team with Elmo's contact information for pt's chart. P: anticipate dc to Sunday if medically stable, time pending. PICC or midline needed. CM team will continue to follow as needed NAYA Sena
[2024-05-12 16:31] VITALS: BP 127/61; PULSE 81; RESP 16; TEMP 36.6; O2SAT 93
--- NOTE | 2024-05-12 17:54 | P.PN_ITS ---
Subjective Subjective Interval history: 73 F here with an ESBL E. coli UTI. Changed to carbapenem therapy today, will need 7 days of treatment. She reports feeling sick of the food at her assisted living, loving it here so much she ate too much for lunch and felt nauseous after. Exam Vital Signs (past 8 hours): - 05/12/24 12:00 05/12/24 16:31 Temperature 97.5 F L 97.9 F Pulse Rate 80 81 Respiratory Rate 17 16 Blood Pressure 128/56 L 127/61 Pulse Oximetry 96 93 Oxygen Flow Rate 0 0 Oxygen Delivery Method Room Air Oxygen Flow Rate 0 Narrative Exam Narrative: Gen: NAD, awake and alert, mild tremor CV: RRR no m/r/g Pulm: CTA b/l Abd: S NT ND Ext: no edema Objective Labs 05/11/24 07:10 05/11/24 07:10 [facility] Medical History Parkinson's disease Social History household members: none Smoking Status: Former smoker Assessment & Plan Assessment & Plan narrative: 1. Urinary tract infection due to ESBL E coli. - recommend 7 days of therapy with carbapenem. Was given one dose in the ER. Restart meropenem today. Can discharge on meropenem q8hr to SNF or ertapenem daily. - midline ordered today - okay for lab recheck tomorrow 2. Weakness due to 1. - continue PT/OT 3. Parkinson's disease. Continue home sinemet 4. DVT prophylaxis: Lovenox. 5. Code status: Do not resuscitate. She clearly states this wish and has a POLST form enclosed in the chart. The patient is admitted inpatient status as she will require 2 midnights of inpatient level care. Dispo: SNF, likely in a couple of days. Time-Based Coding :: [TOTAL MINUTES] spent with patient and on the chart (including review of chart, obtaining history, exam, reviewing outside data, placing orders, documenting exam and treatment plan, and counseling patient) on [DATE]. Quality VTE Deep Vein Thrombosis/Pulmonary Embolism Present on Admission: No
[2024-05-12] MEDS: CARBIDOPA-LEVODOPA ER 50/200 TABLET 1 EACH PO (19:29)
[2024-05-12 20:00] VITALS: BP 157/62; PULSE 82; RESP 19; TEMP 36.2; O2SAT 96
[2024-05-12] MEDS: MELATONIN 3 MG TABLET 6 MG PO (20:16)
[2024-05-12] MEDS: GABAPENTIN 300 MG CAPSULE 600 MG PO (20:16)
[2024-05-13] VITALS: BP 146/80; PULSE 74; RESP 18; TEMP 36.7; O2SAT 96
[2024-05-13] MEDS: ACETAMINOPHEN 325 MG TABLET 650 MG PO ×2 (00:34→13:09)
[2024-05-13 04:00] VITALS: BP 140/74; PULSE 74; RESP 19; TEMP 37; O2SAT 96
[2024-05-13] MEDS: ENTACAPONE 200 MG TABLET 100 MG PO ×4 (06:51→16:06)
[2024-05-13] MEDS: CARBIDOPA-LEVODOPA 25/100 TABLET 2 EACH PO ×4 (06:51→16:07)
[2024-05-13 08:00] VITALS: BP 128/57; PULSE 81; RESP 18; TEMP 36.3; O2SAT 95
[2024-05-13] MEDS: TAMSULOSIN 0.4 MG CAPSULE PO (08:52)
[2024-05-13] MEDS: MEROPENEM 1 GM in SODIUM CHLORIDE 0.9% 100 ML IV (08:52)
[2024-05-13] MEDS: GABAPENTIN 100 MG CAPSULE PO (08:53)
[2024-05-13] MEDS: SERTRALINE 50 MG TABLET 100 MG PO (08:53)
[2024-05-13] MEDS: DONEPEZIL 5 MG TABLET 10 MG PO (08:53)
[2024-05-13] MEDS: PHENAZOPYRIDINE 100 MG TABLET PO ×3 (08:53→20:00)
[2024-05-13] MEDS: ENOXAPARIN 40 MG/0.4 ML SYRINGE SUBCUT (08:53)
[2024-05-13] MEDS: CHOLECALCIFEROL (VITAMIN D3) 1,000 UNIT TABLET 1000 UNIT PO (08:53)
--- NOTE | 2024-05-13 09:18 | CM.DPNOTE ---
Addendum entered by NAYA Sena 05/13/24 14:32: Per RN, pt got midline in, tolerated well. SL Addendum entered by NAYA Sena 05/13/24 11:41: Per provider in morning rounds, pt will likely be cleared to dc to [facility] tomorrow. could either take Ertapenem or Meropenem, whichever is prefered by . Per Samina at , Ertapenem cheaper than meropenem. likely can accept pt tomorrow, p/u scheduled for 0. updated provider on Ertapenem/p.u time for Sunday. MAURICE Original Note: DCP note DIRECTOR OF PUBLIC WORKS reviewed EMR. Per RN report, plan is to get midline today. Per Samina at , can accept pt tomorrow, time pending for transport. P: PASRR completed. anticipate dc to [facility] tomorrow, confirm midline placement. CM team will continue to follow closely for DCP coordination. NAYA Sena
[2024-05-13] MEDS: HYDROCODONE/ACET 5/325 TABLET 1 TAB PO ×2 (11:30→19:59)
[2024-05-13] MEDS: ONDANSETRON 4 MG ODT SL ×3 (11:30→20:32)
[2024-05-13 13:00] VITALS: BP 117/69; PULSE 77; RESP 19; TEMP 36.4; O2SAT 97
--- NOTE | 2024-05-13 13:31 | PM.PN.1 ---
Subjective Subjective Interval history: 73 F here with an ESBL E. coli UTI. Changed to carbapenem therapy on 05/12, will need 7 days of treatment. She reports feeling sick of the food at her assisted living, loving it here so much she ate too much for lunch and felt nauseous after. Exam Vital Signs (past 8 hours): - 05/13/24 08:00 05/13/24 08:00 Temperature 97.4 F L Pulse Rate 81 Respiratory Rate 18 Blood Pressure 128/57 L Pulse Oximetry 95 Oxygen Delivery Method Room Air Oxygen Flow Rate 0 Oxygen Delivery Method Room Air Oxygen Flow Rate 0 Narrative Exam Narrative: Gen: NAD, awake and alert, mild tremor CV: RRR no m/r/g Pulm: CTA b/l Abd: S NT ND Ext: no edema Objective Labs 05/11/24 07:10 05/11/24 07:10 ON LICENSE OF [facility] Medical History Parkinson's disease Social History household members: none Smoking Status: Former smoker Assessment & Plan Assessment & Plan narrative: 1. Urinary tract infection due to ESBL E coli. - recommend 7 days of therapy with carbapenem. Was given one dose in the ER. Restart meropenem today. Can discharge on meropenem q8hr to SNF or ertapenem daily. Changed to ertapenem today, dosing 1g q24 hr. - midline now in place. - labs ordered for today 2. Weakness due to 1. - continue PT/OT, plan for SNF 3. Parkinson's disease. Continue home sinemet 4. Possible benzodiazepine withdrawal - patient's home clonazepam had been held since admission, current nausea and vague symptoms may be mild benzodiazepine withdrawal, will reorder and see response today. DVT prophylaxis: Lovenox. Code status: Do not resuscitate. She clearly states this wish and has a POLST form enclosed in the chart. The patient is admitted inpatient status as she will require 2 midnights of inpatient level care. Dispo: SNF, likely in a couple of days. Time-Based Coding :: [TOTAL MINUTES] spent with patient and on the chart (including review of chart, obtaining history, exam, reviewing outside data, placing orders, documenting exam and treatment plan, and counseling patient) on [DATE]. Quality VTE Deep Vein Thrombosis/Pulmonary Embolism Present on Admission: No
[2024-05-13] MEDS: clonazePAM 0.5 MG TABLET 1 MG PO (14:06)
[2024-05-13 14:35] LABS: Add Manual Diff / Slide Review NO; Basophils Absolute Auto 0 /uL (0-100); Basophils Percent Auto 0.7 % (0-2); Eosinophils Absolute Auto 100 /uL (0-450); Hematocrit 35.4 % (36-46); Hemoglobin 11.6 g/dL (12.0-16.0); Lymphocytes Absolute Auto 1800 /uL (1100-4500); Lymphocytes Percent Auto 31.9 % (25-40); Mean Corpuscular HGB Conc 32.8 % (30-36); Mean Corpuscular Hemoglobin 32.2 PG (26-34); Mean Corpuscular Volume 98.1 fL (80-100); Monocytes Absolute Auto 500 /uL (0-900); Monocytes Percent Auto 8.5 % (3-14); Neutrophils Absolute Auto 3200 /uL (1500-7000); Neutrophils Percent Auto 57.9 % (50-75); Platelet Count 221 X10^3/uL (150-400); Red Blood Cell Count 3.61 X10^6/uL (4.0-5.2); Red Cell Distribution Width 13.1 % (11.6-14.8); White Blood Cell Count 5.6 X10^3/uL (4.5-11.0)
[2024-05-13 14:49] LABS: Alanine Aminotransferase 11 IU/L (<35); Albumin 3.9 g/dL (3.5-5.0); Albumin Globulin Ratio 1.4 (1.0-2.8); Alkaline Phosphatase 86 U/L (38-126); Aspartate Aminotransferase 36 IU/L (14-36); BUN Creatinine Ratio 20.3 (6-22); Bilirubin Total 0.6 mg/dL (0.2-1.3); Blood Urea Nitrogen 14 mg/dL (7-17); Calcium 9.4 mg/dL (8.4-10.2); Carbon Dioxide 25 mmol/L (22-32); Chloride 108 mmol/L (98-107); Estimated Glomerular Filt Rate > 60 mL/min (>60); Globulin 2.8 g/dL (1.7-4.1); Glucose 143 mg/dL (80-110); HEMOLYSIS < 15 (0-50); Magnesium 1.8 mg/dL (1.6-2.3); Potassium 4.3 mmol/L (3.4-5.1); Sodium 137 mmol/L (137-145); Total Protein 6.7 g/dL (6.3-8.2)
[2024-05-13] MEDS: ERTAPENEM 1 GM in SODIUM CHLORIDE 0.9% 100 ML IV (16:53)
[2024-05-13 17:00] VITALS: BP 120/72; PULSE 87; RESP 18; TEMP 36.4; O2SAT 92
--- NOTE | 2024-05-13 17:18 | PC.NURSE ---
Patient had midline IV placed to left upper arm by Maria Guadalupe BARON in [place] (his charting not observed at this time). Patient tolerated well.
[2024-05-13] MEDS: CARBIDOPA-LEVODOPA ER 50/200 TABLET 1 EACH PO (19:16)
[2024-05-13 20:00] VITALS: BP 113/51; PULSE 84; RESP 18; TEMP 36.3; O2SAT 94
[2024-05-13] MEDS: SODIUM CHLORIDE 0.9% FLUSH 10 ML IV (20:00)
[2024-05-13] MEDS: MELATONIN 3 MG TABLET 6 MG PO (20:00)
[2024-05-13] MEDS: GABAPENTIN 300 MG CAPSULE 600 MG PO (20:00)
[2024-05-13] MEDS: ACETAMINOPHEN 325 MG TABLET 975 MG PO (22:45)
[2024-05-14] MEDS: HYDROCODONE/ACET 5/325 TABLET 1 TAB PO (03:10)
[2024-05-14 04:00] VITALS: BP 111/47; PULSE 71; RESP 17; TEMP 35.7; O2SAT 92
[2024-05-14 05:36] LABS: Add Manual Diff / Slide Review NO; Basophils Absolute Auto 0 /uL (0-100); Basophils Percent Auto 0.6 % (0-2); Eosinophils Absolute Auto 200 /uL (0-450); Eosinophils Percent Auto 2.5 % (2-4); Hematocrit 32.7 % (36-46); Hemoglobin 10.8 g/dL (12.0-16.0); Lymphocytes Absolute Auto 2300 /uL (1100-4500); Lymphocytes Percent Auto 33.4 % (25-40); Mean Corpuscular HGB Conc 33.1 % (30-36); Mean Corpuscular Hemoglobin 32.5 PG (26-34); Mean Corpuscular Volume 98.1 fL (80-100); Monocytes Absolute Auto 600 /uL (0-900); Monocytes Percent Auto 8.6 % (3-14); Neutrophils Absolute Auto 3800 /uL (1500-7000); Neutrophils Percent Auto 54.9 % (50-75); Platelet Count 202 X10^3/uL (150-400); Red Blood Cell Count 3.34 X10^6/uL (4.0-5.2); Red Cell Distribution Width 12.7 % (11.6-14.8)
[2024-05-14 05:54] LABS: Alanine Aminotransferase 10 IU/L (<35); Albumin 3.7 g/dL (3.5-5.0); Albumin Globulin Ratio 1.5 (1.0-2.8); Alkaline Phosphatase 76 U/L (38-126); Aspartate Aminotransferase 32 IU/L (14-36); BUN Creatinine Ratio 22.4 (6-22); Bilirubin Total 0.5 mg/dL (0.2-1.3); Blood Urea Nitrogen 15 mg/dL (7-17); Calcium 9.3 mg/dL (8.4-10.2); Carbon Dioxide 26 mmol/L (22-32); Chloride 109 mmol/L (98-107); Estimated Glomerular Filt Rate > 60 mL/min (>60); Globulin 2.5 g/dL (1.7-4.1); Glucose 101 mg/dL (80-110); HEMOLYSIS < 15 (0-50); Magnesium 1.8 mg/dL (1.6-2.3); Potassium 3.7 mmol/L (3.4-5.1); Sodium 139 mmol/L (137-145); Total Protein 6.2 g/dL (6.3-8.2)
[2024-05-14] MEDS: CARBIDOPA-LEVODOPA 25/100 TABLET 2 EACH PO ×2 (06:34→10:28)
[2024-05-14] MEDS: ENTACAPONE 200 MG TABLET 100 MG PO ×2 (06:34→10:28)
[2024-05-14 08:00] VITALS: BP 116/53; PULSE 90; RESP 14; TEMP 36.5; O2SAT 93
[2024-05-14] MEDS: CHOLECALCIFEROL (VITAMIN D3) 1,000 UNIT TABLET 1000 UNIT PO (08:49)
[2024-05-14] MEDS: DONEPEZIL 5 MG TABLET 10 MG PO (08:49)
[2024-05-14] MEDS: SODIUM CHLORIDE 0.9% FLUSH 10 ML IV (08:49)
[2024-05-14] MEDS: ENOXAPARIN 40 MG/0.4 ML SYRINGE SUBCUT (08:49)
[2024-05-14] MEDS: TAMSULOSIN 0.4 MG CAPSULE PO (08:49)
[2024-05-14] MEDS: PHENAZOPYRIDINE 100 MG TABLET PO (08:49)
[2024-05-14] MEDS: GABAPENTIN 100 MG CAPSULE PO (08:49)
[2024-05-14] MEDS: SERTRALINE 50 MG TABLET 100 MG PO (08:49)
--- NOTE | 2024-05-14 10:12 | PM.DS.1 ---
History of Present Illness History of Present Illness Date Patient Seen: 05/14/24 Time Patient Seen: 10:12 Chief complaint: AMS Narrative: Per admitting provider, 73-year-old woman residing at [facility] assisted living facility with a history of recurrent urinary tract infections, presents with progressive weakness after recently culturing multidrug resistant E coli 04/29/2024, treated with nitrofurantoin, sensitive to sulfa but with stated allergies to sulfa and penicillin. However, she states that these reactions were told to her by her mother when she was very young. She does not know of any history of rash or anaphylaxis. She has Parkinson's and is chronically wheelchair-bound. She states that she would be willing to accept treatment for her urinary infection no otherwise does not wish aggressive care and states do not resuscitate code status. She has a surrogate caregiver who she is known for several decades, who also works at her assisted living facility named [facility], and is estranged from her son. Discharge Providers Provider Date of admission: 05/11/24 13:24 Discharge Date: 05/14/24 Primary care physician: Doctor Barb MD Consults: 05/11/24 10:08 [place] [facility] [place] Laboratory Analyst Stat Comment: Oil Laboratory Analyst Consult needed for:: Other reason (Comment) Comment: ? hospice 05/11/24 15:53 Consult to Pastoral Services Routine Comment: per pt request Discharge provider: Lorenzo Cole DO Summary Hospital Course Discharge Diagnosis: 1. Urinary tract infection due to ESBL E coli. 2. Weakness due to 1 3. Parkinson's disease. 4. Possible benzodiazepine withdrawal Hospital Course: This is a 73 yearo old female with PMH of Parkinson's disease, resides at assisted living facility, who was admitted to the hospital with recurrent urinary tract infection. Culture was notable now and in the past for an ESBL organism. Current guidelines recommend treatment with carbapenem therapy for 7 days for ESBL organisms. Treatment was started here in the hospital, and ertapenem will end on 05/19/2024. She was weak due to her urinary tract infection, continue PT/OT at halfway facility prior to eventual return to assisted living. Her home clonazepam had been held on admission, on 05/13/24 patient may have experienced mild benzodiazepine withdrawal. Recommend decrease in clonazpeam from TID to BID prn on discharge. Time Spent with Patient Time spent: Greater than 30 minutes Exam Vital Signs (past 8 hours): - 05/14/24 04:00 05/14/24 08:00 Temperature 96.3 F L 97.7 F Pulse Rate 71 90 Respiratory Rate 17 14 Blood Pressure 111/47 L 116/53 L Pulse Oximetry 92 93 Oxygen Flow Rate 0 0 Oxygen Delivery Method Room Air Oxygen Flow Rate 0 Narrative Exam Narrative: Gen: NAD, awake and alert, mild tremor CV: RRR no m/r/g Pulm: CTA b/l Abd: S NT ND Ext: no edema Objective Labs 05/14/24 05:02 05/14/24 05:02 Labs: Laboratory Results - last 24 hr 05/13/24 05/14/24 14:15 05:02 WBC 5.6 7.0 RBC 3.61 L 3.34 L Hgb 11.6 L 10.8 L Hct 35.4 L 32.7 L MCV 98.1 98.1 MCH 32.2 32.5 MCHC 32.8 33.1 RDW 13.1 12.7 Plt Count 221 202 Neut % (Auto) 57.9 54.9 Lymph % (Auto) 31.9 33.4 Merrick % (Auto) 8.5 8.6 Eos % (Auto) 1.0 L 2.5 Baso % (Auto) 0.7 0.6 Neut # (Auto) 3200 3800 Lymph # (Auto) 1800 2300 Merrick # (Auto) 500 600 Eos # (Auto) 100 200 Baso # (Auto) 0 0 Sodium 137 139 Potassium 4.3 3.7 Chloride 108 H 109 H Carbon Dioxide 25 26 BUN 14 15 Creatinine 0.69 0.67 Estimated GFR > 60 > 60 BUN/Creatinine Ratio 20.3 22.4 H Glucose 143 H 101 Calcium 9.4 9.3 Magnesium 1.8 1.8 Total Bilirubin 0.6 0.5 AST 36 32 ALT 11 10 Alkaline Phosphatase 86 76 Total Protein 6.7 6.2 L Albumin 3.9 3.7 Globulin 2.8 2.5 Albumin/Globulin Ratio 1.4 1.5 [facility] Medical History Parkinson's disease Social History household members: none Smoking Status: Former smoker Discharge Plan Discharge Plan Patient Disposition: SNF Transfer to: [facility] Provider Discharge Comment: continue ertapenem until 05/19/24. reduced clonazepam from TID per previous ordered to BID as needed only. Discharge orders & Medications Prescriptions: New ertapenem 1 gram Recon Soln 1 g IV Q24H Qty: 5 0RF Continued carbidopa-levodopa 25-100 mg tablet extended release 2 tab PO QID Rx Instructions: give 2 tablets four times a day: 0700, 1000, 1300, 1600 donepezil 10 mg tablet 10 mg PO DAILY carbidopa-levodopa 50-200 mg tablet extended release 1 tab PO BEDTIME sertraline 100 mg tablet 100 mg PO DAILY gabapentin 300 mg capsule 600 mg PO BEDTIME Rx Instructions: give at bedtime for RLS cetirizine 10 mg tablet 10 mg PO DAILY entacapone 200 mg tablet 100 mg PO QID Rx Instructions: give 0.5 tablet by mouth four times a day for Parkinson's omeprazole magnesium [Prilosec OTC] 20 mg Tablet,Delayed Release (Dr/Ec) 20 mg PO BID cranberry extract 250 mg Tablet 250 mg PO DAILY acetaminophen [Tylenol 8 Hour] 650 mg tablet extended release 650 mg PO Q8H PRN (Reason: fever or pain) Qty: 20 0RF ibuprofen 400 mg tablet 400 mg PO Q8H PRN (Reason: pain) Qty: 20 0RF omega-3 fatty acids 1,000 mg capsule 1,000 mg PO DAILY cholecalciferol (vitamin D3) 25 mcg (1,000 unit) capsule 25 mcg PO DAILY flaxseed oil 1,000 mg capsule 1,000 mg PO DAILY Rx Instructions: administer with a meal melatonin 5 mg capsule 5 mg PO BEDTIME gabapentin 100 mg capsule 300 mg PO USEASDIRECTD Rx Instructions: give 1 capsule by mouth at 1300 for RLS Changed clonazepam 1 mg Tablet,Disintegrating 1 mg PO BID PRN (Reason: Anxiety or spasm) Qty: 14 0RF Discontinued nitrofurantoin macrocrystal 100 mg capsule 100 mg PO BID Qty: 14 0RF Rx Instructions: must administer with a meal/food Follow up/Referrals: Miscellaneous,Doctor, MD [Primary Care Provider] - Discharge Health Status Multidrug resistant organism: Other Precautions: Contact Diet/Activity/Treatments Diet: Diet as Tolerated and Regular Liquid consistency: Normal/Thin Food texture: Regular Diet comment: No restrictions Activity: No restrictions Special Rehabilitation Services Reason for rehabilitation: Recovery r/t decondition Rehab type: Physical therapy and Occupational therapy Visit Report/Discharge Packet Stand Alone Forms: Patient Portal/API Discharge Data Primary Care Provider: Miscellaneous,Doctor Quality VTE Deep Vein Thrombosis/Pulmonary Embolism Present on Admission: No
[2024-05-14] MEDS: ONDANSETRON 4 MG ODT SL (10:29)
[2024-05-14] MEDS: clonazePAM 0.5 MG TABLET 1 MG PO (11:14)
--- NOTE | 2024-05-14 11:42 | CM.DPNOTE ---
DCP Note per provider in morning rounds, medically stable to dc to [facility] today. Per October at , can accept pt today at 11:30. ORTHOPEDIC TECHNICIAN faxed PASRR, signed meds, script, dc sum, order and additional DC information to . ORTHOPEDIC TECHNICIAN updated pt in room. Answered questions. Pt in agreement with plan. ORTHOPEDIC TECHNICIAN updated RN/PLANT CLERK. gave RN report number. ORTHOPEDIC TECHNICIAN placed scripts/med list/PASRR/dc sum in chart. P: dc to [facility] today at 11:30 to finish IV abx course. CM team will continue to follow as needed NAYA Sena
--- NOTE | 2024-05-14 13:19 | PC.NURSE ---
Discharge instructions gone over with LORAINE Minor at [facility]. Full report given to her. PIV removed piror to discharge. Midline left in place for continued IV antibiotics at [facility]. All belongings with patient. Packet including signed med list and scripts given to truck and transport mechanic.
== END 2024-05-14 11:35 | DRG 690 ==
LOC: ED 12:56 → AC 13:24
PROVIDERS: Internal Medicine; Admitting Provider Internal Medicine; Emergency Provider Emergency Medicine; Visit Provider Internal Medicine
DX: N39.0 Urinary tract infection, site not specified (principal); Z16.24 Resistance to multiple antibiotics; F19.239 Other psychoactive substance dependence with withdrawal, unspecified; G20.A1 Parkinson's disease without dyskinesia, without mention of fluctuations; B96.20 Unspecified Escherichia coli [E. coli] as the cause of diseases classified elsewhere; Z87.440 Personal history of urinary (tract) infections; Z88.0 Allergy status to penicillin; Z88.2 Allergy status to sulfonamides; Z99.3 Dependence on wheelchair; Z87.891 Personal history of nicotine dependence; Z66 Do not resuscitate; Z96.82 Presence of neurostimulator
CPT/HCPCS: 36415; 51701; 51798; 80053; 81001; 83605; 83735; 85025; 87077; 87086; 87186; 96365; 96366; 99284; J1335; J1650; J2185

== ENCOUNTER 2024-05-17 10:04 | Inpatient (IN) | payer MEDICARE, MEDICAID, SELFPAY ==
[2024-05-11 14:06] VITALS: BMI 22.3
[2024-05-17] VITALS (12 sets, daily range): BP systolic 130–156; BP diastolic 55–77; PULSE 78–93; RESP 17–20; TEMP 36.2–37.1; O2SAT 87–97
--- NOTE | 2024-05-17 10:12 | DI.RAD.S_ITS ---
PROCEDURE: XR CHEST 1V INDICATIONS: altered mental status TECHNIQUE: One view of the chest was acquired. COMPARISON: [facility], , XR CHEST 1V, 04/05/2024, 17:16. [facility], CR, XR CHEST 1V, 12/31/2023, 18:11. FINDINGS: Surgical changes and devices: Neurostimulator with left chest wall generator. Lungs and pleura: No dense airspace disease or pleural effusions. Mediastinum: Normal heart size, unchanged. Bones and chest wall: Degenerative findings IMPRESSION: No acute radiographic abnormality on this single view study. Dictated by: Srini Aragon M.D. on 05/17/2024 at 10:03 Approved by: Srini Aragon M.D. on 05/17/2024 at 10:04
--- NOTE | 2024-05-17 10:19 | EKG_ITS ---
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
--- NOTE | 2024-05-17 10:26 | DI.CT.S_ITS ---
PROCEDURE: CT HEAD/BRAIN WO CON INDICATIONS: AMS TECHNIQUE: Noncontrast 4.5 mm thick angled axial sections acquired from the foramen magnum to the vertex, with coronal and sagittal reformats. For radiation dose reduction, the following was used: automated exposure control, adjustment of mA and/or kV according to patient size. COMPARISON: [facility], CT, CT HEAD WITHOUT CONTRAST, 12/16/2021, 15:54. FINDINGS: Image quality: Diagnostic CSF spaces: Basal cisterns are patent. Lateral ventricles are symmetric. Volume: Vascular calcifications. Periventricular white matter disease is commonly seen with chronic microangiopathy. Volume loss is present. These findings are moderate Brain: Brain stimulators are present. No acute hemorrhage. Craniofacial structures: No significant paranasal sinus opacity. Calvarial postsurgical changes. IMPRESSION: No acute hemorrhage. No gross loss of bonds-white differentiation. Deep brain stimulators are present. Dictated by: Srini Aragon M.D. on 05/17/2024 at 10:54 Approved by: Srini Aragon M.D. on 05/17/2024 at 10:56
[2024-05-17 10:28] LABS: Add Manual Diff / Slide Review NO; Basophils Absolute Auto 100 /uL (0-100); Basophils Percent Auto 1.1 % (0-2); Eosinophils Absolute Auto 100 /uL (0-450); Eosinophils Percent Auto 1.9 % (2-4); Hematocrit 38.1 % (36-46); Hemoglobin 12.6 g/dL (12.0-16.0); Lymphocytes Absolute Auto 1500 /uL (1100-4500); Lymphocytes Percent Auto 30.1 % (25-40); Mean Corpuscular HGB Conc 32.9 % (30-36); Mean Corpuscular Volume 97.2 fL (80-100); Monocytes Absolute Auto 300 /uL (0-900); Monocytes Percent Auto 6.5 % (3-14); Neutrophils Absolute Auto 3100 /uL (1500-7000); Neutrophils Percent Auto 60.4 % (50-75); Platelet Count 256 X10^3/uL (150-400); Red Blood Cell Count 3.93 X10^6/uL (4.0-5.2); White Blood Cell Count 5.1 X10^3/uL (4.5-11.0)
[2024-05-17 10:41] LABS: Alanine Aminotransferase 14 IU/L (<35); Albumin 4.4 g/dL (3.5-5.0); Albumin Globulin Ratio 1.5 (1.0-2.8); Alkaline Phosphatase 82 U/L (38-126); Aspartate Aminotransferase 37 IU/L (14-36); BUN Creatinine Ratio 25.8 (6-22); Bilirubin Total 0.6 mg/dL (0.2-1.3); Blood Urea Nitrogen 16 mg/dL (7-17); Calcium 9.3 mg/dL (8.4-10.2); Carbon Dioxide 27 mmol/L (22-32); Chloride 110 mmol/L (98-107); Estimated Glomerular Filt Rate > 60 mL/min (>60); Globulin 2.9 g/dL (1.7-4.1); Glucose 105 mg/dL (80-110); HEMOLYSIS < 15 (0-50); Potassium 3.9 mmol/L (3.4-5.1); Sodium 142 mmol/L (137-145); Total Protein 7.3 g/dL (6.3-8.2)
--- NOTE | 2024-05-17 11:03 | ED.GENADULT ---
HPI - General Adult General Chief complaint: Altered Mental Status Stated complaint: Seizure like activity Time Seen by Provider: 05/17/24 10:25 Source: EMS Mode of arrival: EMS Limitations: altered mental status History of Present Illness HPI narrative: Patient was a 73-year-old female. Was sent over from [facility] for evaluation of potential seizures and altered mental status. Patient is a full code. Has a history of Parkinson's disease. No reported history of seizures. He was not on antiseizure medication. Patient was not in respiratory distress. Unsure as to when the symptoms started. Patient was unable to provide any HPI or review of systems. There were no reports of trauma. Related Data Home Medications Medication Instructions Recorded Confirmed carbidopa ER 25 mg-levodopa 100 mg 2 tab PO QID 12/31/23 05/17/24 tablet,extended release cholecalciferol (vitamin D3) 25 25 mcg PO DAILY 02/14/24 05/17/24 mcg (1,000 unit) capsule flaxseed oil 1,000 mg capsule 1,000 mg PO DAILY 02/14/24 05/17/24 gabapentin 100 mg capsule 300 mg PO USEASDIRECTD 02/14/24 05/17/24 melatonin 5 mg capsule 5 mg PO BEDTIME 02/14/24 05/17/24 omega-3 fatty acids 1,000 mg 1,000 mg PO DAILY 02/14/24 05/17/24 capsule carbidopa ER 50 mg-levodopa 200 mg 1 tab PO BEDTIME 05/11/24 05/17/24 tablet,extended release cetirizine 10 mg tablet 10 mg PO DAILY Allergies 05/11/24 05/17/24 cranberry extract 250 mg tablet 250 mg PO DAILY 05/11/24 05/17/24 donepezil 10 mg tablet 10 mg PO DAILY 05/11/24 05/17/24 entacapone 200 mg tablet 100 mg PO QID Parkinson's 05/11/24 05/17/24 gabapentin 300 mg capsule 600 mg PO BEDTIME 05/11/24 05/17/24 omeprazole magnesium 20 mg 20 mg PO BID 05/11/24 05/17/24 tablet,delayed release (Prilosec OTC) sertraline 100 mg tablet 100 mg PO DAILY Depression 05/11/24 05/17/24 Previous Rx's Medication Instructions Recorded acetaminophen 650 mg 650 mg PO Q8H PRN fever or pain 04/29/24 tablet,extended release (Tylenol 8 #20 tabs Hour) ibuprofen 400 mg tablet 400 mg PO Q8H PRN pain #20 tabs 04/29/24 clonazepam 1 mg disintegrating 1 mg PO BID PRN Anxiety or spasm 05/14/24 tablet #14 tabs ertapenem 1 gram solution for 1 g IV Q24H #5 ea 05/14/24 injection Allergies Allergy/AdvReac Type Severity Reaction Status Date / Time Penicillins Allergy Intermediate Hives Verified 05/17/24 10:27 corn Allergy Unknown Verified 05/17/24 10:27 Sulfa (Sulfonamide Allergy Verified 05/17/24 10:27 Antibiotics) Review of Systems Review of Systems ROS Unobtainable: Unobtainable due to medical condition Patient History Medical History Parkinson's disease Social History household members: none Smoking Status: Former smoker alcohol intake: never Smoking Status: Former smoker tobacco type: cigarettes alcohol intake frequency: holidays/special occasions only Exam Initial Vital Signs Initial Vital Signs: Vital Signs Pulse Oximetry 87 L 05/17/24 10:13 Const General: No ill appearing HENMT Head: normal to inspection and normocephalic Resp Effort & Inspection: normal respiratory effort Auscultation: clear to auscultation bilaterally Cardio Rate: regular rate Rhythm: regular rhythm GI Inspection: normal to inspection Neuro Other: Patient will not open her eyes but she does respond to painful stimuli and makes purposeful movements with this response. It was not follow commands. Extrem Other: No gross deformities. No signs of trauma. Scores GCS [place] coma scale eye opening: None [place] coma scale verbal response: Sounds [place] coma scale motor response: Localising [place] coma scale total score: 8 Course Orders Ordered: ED Orders 05/17/24 10:12 XR chest 1V Stat EKG-12 Lead Stat 05/17/24 10:21 Complete Blood Count AUTO DIFF Stat Comprehensive Metabolic Panel Stat 05/17/24 10:26 CT head/brain wo con Stat 05/17/24 10:43 Acetaminophen Stat Ammonia (NH3) Stat Ethanol (ETOH) Stat Lipase Stat Prolactin Stat Salicylate Stat 05/17/24 12:43 Urine Culture Stat Urine Drug Screen, Rapid Stat Urine Microscopic Stat Acetaminophen (Acetaminophen 325 Mg Tablet) 650 mg PO Q6H PRN PRN Reason: Fever/Mild Pain (1-3) Carbidopa/Levodopa (Carbidopa-Levodopa Er 50/200 Tablet) 1 each PO BEDTIME [facility] Carbidopa/Levodopa (Carbidopa-Levodopa Er 50/200 Tablet) 1 each PO QID [facility] Last Admin: 05/17/24 17:06 Dose: 1 each Documented By: ALMA Donepezil HCl (Donepezil 5 Mg Tablet) 10 mg PO DAILY [facility] Entacapone (Entacapone 200 Mg Tablet) 100 mg PO QID [facility] Last Admin: 05/17/24 17:06 Dose: 100 mg Documented By: ALMA Gabapentin (Gabapentin 300 Mg Capsule) 600 mg PO BEDTIME [facility] Heparin Sodium (Porcine) (Heparin 5,000 Unit/Ml Vial) 5,000 unit SUBCUT BID [facility] Last Admin: 05/17/24 15:34 Dose: 5,000 unit Documented By: ALMA Dextrose/Sodium Chloride (Dextrose 5%-0.9% Ns) 1,000 mls @ 100 mls/hr IV CONT [facility] Last Admin: 05/17/24 15:34 Dose: 100 mls/hr Documented By: ALMA Ertapenem 1 gm/ Sodium (Chloride) 100 mls @ 200 mls/hr IV Q24H [facility] Last Admin: 05/17/24 17:06 Dose: 200 mls/hr Documented By: ALMA Ibuprofen (Ibuprofen 400 Mg Tablet) 400 mg PO Q8H PRN PRN Reason: pain Loratadine (Loratadine 10 Mg Tablet) 10 mg PO DAILY [facility] Naloxone HCl (Naloxone 0.4 Mg/Ml Vial) 0.2 mg IV Q2MIN PRN PRN Reason: Opiate Reversal Ondansetron HCl (Ondansetron 4 Mg/2 Ml Inj) 4 mg IV Q8HR PRN PRN Reason: Nausea And Vomiting Last Admin: 05/17/24 15:50 Dose: 4 mg Documented By: ALMA Pantoprazole Sodium (Pantoprazole Dr 20 Mg Tablet) 20 mg PO BID [facility] Vital Signs Vital signs: Vital Signs - 8 hr 05/17/24 10:13 05/17/24 10:16 05/17/24 10:16 Temperature Pulse Rate 83 Respiratory Rate Blood Pressure 156/72 H Pulse Oximetry 87 L 92 Oxygen Delivery Method 05/17/24 10:27 05/17/24 10:30 05/17/24 10:30 Temperature Pulse Rate 83 83 Respiratory Rate 17 Blood Pressure 144/77 H 144/77 H Pulse Oximetry 97 96 Oxygen Delivery Method Room Air 05/17/24 10:45 05/17/24 10:45 05/17/24 11:00 Temperature Pulse Rate 81 82 Respiratory Rate Blood Pressure 139/74 Pulse Oximetry 96 96 Oxygen Delivery Method 05/17/24 11:08 05/17/24 11:30 05/17/24 12:00 Temperature 98.7 F Pulse Rate 86 90 Respiratory Rate Blood Pressure Pulse Oximetry 96 94 Oxygen Delivery Method 05/17/24 12:18 05/17/24 12:18 Temperature Pulse Rate 93 H Respiratory Rate Blood Pressure 151/71 H Pulse Oximetry 94 Oxygen Delivery Method Medical Decision Making Lab Data Lab results reviewed: Yes I reviewed the patient's lab results. 05/17/24 10:21 05/17/24 10:21 Labs: Lab Results 05/17/24 05/17/24 05/17/24 Range/Units 10:21 10:43 12:43 WBC 5.1 (4.5-11.0) X10^3/uL RBC 3.93 L (4.0-5.2) X10^6/uL Hgb 12.6 (12.0-16.0) g/dL Hct 38.1 (36-46) % MCV 97.2 (80-100) fL MCH 32.0 (26-34) PG MCHC 32.9 (30-36) % RDW 13.0 (11.6-14.8) % Plt Count 256 (150-400) X10^3/uL Neut % (Auto) 60.4 (50-75) % Lymph % (Auto) 30.1 (25-40) % [place] % (Auto) 6.5 (3-14) % Eos % (Auto) 1.9 L (2-4) % Baso % (Auto) 1.1 (0-2) % Neut # (Auto) 3100 (7715-4782) /uL Lymph # (Auto) 1500 (4396-7004) /uL [place] # (Auto) 300 (0-900) /uL Eos # (Auto) 100 (0-450) /uL Baso # (Auto) 100 (0-100) /uL Sodium 142 (137-145) mmol/L Potassium 3.9 (3.4-5.1) mmol/L Chloride 110 H (98-107) mmol/L Carbon Dioxide 27 (22-32) mmol/L BUN 16 (7-17) mg/dL Creatinine 0.62 (0.52-1.04) mg/dL Estimated GFR > 60 (>60) mL/min BUN/Creatinine Ratio 25.8 H (6-22) Glucose 105 (80-110) mg/dL Calcium 9.3 (8.4-10.2) mg/dL Total Bilirubin 0.6 (0.2-1.3) mg/dL AST 37 H (14-36) IU/L ALT 14 (<35) IU/L Alkaline Phosphatase 82 (38-126) U/L Ammonia < 9 L (9-30) umol/L Total Protein 7.3 (6.3-8.2) g/dL Albumin 4.4 (3.5-5.0) g/dL Globulin 2.9 (1.7-4.1) g/dL Albumin/Globulin Ratio 1.5 (1.0-2.8) Lipase 268 (23-300) U/L Prolactin 15.3 (3.0-18.6) ng/mL Urine RBC 0-1/hpf (0-5/HPF) Urine WBC 5-10/hpf H (0-5/HPF) Ur Squamous Epith Cells 5-10 /hpf H (0-5/HPF) Urine Bacteria Occasional (0-1) (None) Ur Culture Indicated? Specimen cultured Vol Urine Centrifuged 5 Salicylates < 1.0 (<20) mg/dL U Opiates 300ng/mL cut Negative (Negative) Ur Oxycodone Screen Negative (Negative) Urine Methadone Screen Negative (Negative) Acetaminophen < 10 (10-30) ug/mL Ur Barbiturates Screen Negative (Negative) U Tricyclic Antidepress Negative (Negative) Ur Phencyclidine Scrn Negative (Negative) Ur Amphetamines Screen Negative (Negative) U Methamphetamines Scrn Negative (Negative) Ur MDMA Scrn (Ecstasy) Negative (Negative) U Benzodiazepines Scrn Negative (Negative) Urine Cocaine Screen Negative (Negative) U Marijuana (THC) Screen Negative (Negative) Urine pH Normal (Normal) Urine Specific [place] Normal (Normal) Ethyl Alcohol < 10 ( - 10) mg/dL Ur Creatinine Normal (Normal) Point of Care Testing Glucose POC 109 Urine Dip Bedside Urine Glucose Negative Bedside Urine Bilirubin - Negative Bedside Urine Ketone +/- 5 Urine Specific [place] 1.015 Bedside Urine Occult Blood - Negative Bedside Urine pH 6.0 Bedside Urine Protein +/- 15 Bedside Urine Urobilinogen - Negative Bedside Urine Nitrite - Negative Bedside Urine Leukocytes +/- 15 Esterase Point of care testing: Point of Care Testing Glucose POC 109 Urine Dip Bedside Urine Glucose Negative Bedside Urine Bilirubin - Negative Bedside Urine Ketone +/- 5 Urine Specific [place] 1.015 Bedside Urine Occult Blood - Negative Bedside Urine pH 6.0 Bedside Urine Protein +/- 15 Bedside Urine Urobilinogen - Negative Bedside Urine Nitrite - Negative Bedside Urine Leukocytes +/- 15 Esterase Imaging Data Chest x-ray: Radiologist's Impression: PROCEDURE: XR CHEST 1V INDICATIONS: altered mental status TECHNIQUE: One view of the chest was acquired. COMPARISON: [facility], CR, XR CHEST 1V, 04/05/2024, 17:16. [facility], CR, XR CHEST 1V, 12/31/2023, 18:11. FINDINGS: Surgical changes and devices: Neurostimulator with left chest wall generator. Lungs and pleura: No dense airspace disease or pleural effusions. Mediastinum: Normal heart size, unchanged. Bones and chest wall: Degenerative findings IMPRESSION: No acute radiographic abnormality on this single view study. CT scan - head: Radiologist's Impression: PROCEDURE: CT HEAD/BRAIN WO CON INDICATIONS: AMS TECHNIQUE: Noncontrast 4.5 mm thick angled axial sections acquired from the foramen magnum to the vertex, with coronal and sagittal reformats. For radiation dose reduction, the following was used: automated exposure control, adjustment of mA and/or kV according to patient size. COMPARISON: [facility], CT, CT HEAD WITHOUT CONTRAST, 12/16/2021, 15:54. FINDINGS: Image quality: Diagnostic CSF spaces: Basal cisterns are patent. Lateral ventricles are symmetric. Volume: Vascular calcifications. Periventricular white matter disease is commonly seen with chronic microangiopathy. Volume loss is present. These findings are moderate Brain: Brain stimulators are present. No acute hemorrhage. Craniofacial structures: No significant paranasal sinus opacity. Calvarial postsurgical changes. IMPRESSION: No acute hemorrhage. No gross loss of bonds-white differentiation. Deep brain stimulators are present. ECG Data Attestation: I personally reviewed and interpreted this ECG as follows: Interpretation: Sinus rhythm Ventricular rate of [address] T wave changes MDM Narrative Medical decision making narrative: Patient was not have a history of seizures and based on her symptoms today I have low suspicion that this was seizure-like activity. I have observed no seizure-like activity since being here in the ER. Her head CT is unremarkable. Urinalysis is unremarkable. There was no signs of any acute infection. Her labs are unremarkable. She does respond to painful stimuli. She apparently has recently been taken off her clonazepam. Unsure as to why this was removed from her medication list but it was reported by EMS who got this information from the living facility. I do have low suspicion for an acute CVA based on her presentation. She was afebrile. She did start to become more responsive during her time here in the ER however is not back to baseline. Because of this patient was require admission to the hospital. Discussed the case with Dr. Fink who is the hospitalist on-call who will admit. Discharge Plan Departure Patient Disposition: Admitted as Observation Clinical Impression: Altered mental status, Incomplete bladder emptying Admit Date/Time: 05/17/24 13:38 Admit Provider: Epifanio Fink
[2024-05-17 11:05] LABS: Ammonia (NH3) < 9 umol/L (9-30)
[2024-05-17 11:06] LABS: Acetaminophen < 10 ug/mL (10-30); Ethanol (ETOH) < 10 mg/dL; Lipase 268 U/L (23-300); Salicylate < 1.0 mg/dL (<20)
[2024-05-17 11:22] LABS: Prolactin 15.3 ng/mL (3.0-18.6)
--- NOTE | 2024-05-17 13:03 | PC.NURSE ---
When patient's friend Elmo who states is her DPOA was present, patient started speaking more. Very soft spoken with flat affect. Per Elmo told him she wants to go home and means with God. Patient did not verbalize this to me. Patient able to answer questions with purpose like if she wanted a catheter to get a urine sample, patient said yes and was participatory with the process by lifting hips to remove clothing and brief. Patient did state she had pain that is everywhere but did not give a number or more details. Provider aware that patient is speaking more. During straight cath patient was found to have 450 in bladder, when asked patient if she had the urge to urinate prior to cath patient said yes and when asked why she didn't go, stated she was not able to. Provider aware of this as well.
[2024-05-17 13:26] LABS: Ur Creatinine Normal (Normal); Ur Specific Gravity Normal (Normal); Urine Amphetamines Negative (Negative); Urine Barbiturates Negative (Negative); Urine Benzodiazepines Negative (Negative); Urine Cocaine Negative (Negative); Urine MDMA Negative (Negative); Urine Methadone Negative (Negative); Urine Methamphetamines Negative (Negative); Urine Opiates Negative (Negative); Urine Oxycodone Negative (Negative); Urine Phencyclidine Negative (Negative); Urine THC Negative (Negative); Urine Tricyclic Antidepressant Negative (Negative); Urine pH Normal (Normal)
[2024-05-17 13:28] LABS: Urine Volume 5
[2024-05-17 13:29] LABS: Bacteria Urine Occasional (0-1); Culture Indicated Urine Specimen Cultured; RBC Urine 0-1/HPF (0-5/HPF); Squamous Epithelial Cell Urine 5-10 /HPF (0-5/HPF); WBC Urine 5-10/HPF (0-5/HPF)
--- NOTE | 2024-05-17 14:24 | PC.NURSE ---
Pt is AAOx3. answering questions appropriately. residing at [facility] but is a resident of [facility]. Pt is brought in for unresponsiveness, seizure like activity. Noted on CT to have deep brain stimulator in place. advised she has a charging pack implanted in her chest and she used a vest to charge the stimulator. the charge lasts about 1 week and her implant has not been charged in 2 or more weeks. The stimulators are in place for her parkinsons. Call placed to [facility] and detailed message left for the coordinator. Also placed a call to [facility] and staff was unaware of such device as well as the vest time checker and states her room has no charging vest in it that they found. [facility] -- [phone]
--- NOTE | 2024-05-17 14:30 | PM.HP.1 ---
History of Present Illness History of Present Illness Chief complaint: Seizure like activity Narrative: The patient was recently discharged back to her assisted living facility after being treated for ESBL urinary tract infection. She completed a 7 day course and has a left arm PICC line in place. She presents today with AMS. She states that she believes she was infected and that is why she was out of it. She has chronic pelvic pain. She states that this comes and goes in his nothing new. She denies specific urinary symptoms including dysuria or hematuria. No recent fevers, or chills. It was noted in the ED that she has a deep brain stimulator for her Parkinson's and there is a question of whether or not it had been charged. She was brought up to the [facility], and her facility brought over her charge her and she has the vest on is currently completing charge of her stimulator. She denies headache or missing recent Parkinson's medications. She denies any diarrhea or constipation issues. COUNT INCLUDES THE [facility] Medical History Parkinson's disease Social History household members: none Smoking Status: Former smoker alcohol intake: never Meds Home Medications and Allergies Home Medications Medication Instructions Recorded Confirmed Type carbidopa ER 25 mg-levodopa 100 mg 2 tab PO QID 12/31/23 05/17/24 History tablet,extended release cholecalciferol (vitamin D3) 25 25 mcg PO DAILY 02/14/24 05/17/24 History mcg (1,000 unit) capsule flaxseed oil 1,000 mg capsule 1,000 mg PO DAILY 02/14/24 05/17/24 History gabapentin 100 mg capsule 300 mg PO USEASDIRECTD 02/14/24 05/17/24 History melatonin 5 mg capsule 5 mg PO BEDTIME 02/14/24 05/17/24 History omega-3 fatty acids 1,000 mg 1,000 mg PO DAILY 02/14/24 05/17/24 History capsule acetaminophen 650 mg 650 mg PO Q8H PRN fever or pain 04/29/24 05/17/24 Rx tablet,extended release (Tylenol 8 #20 tabs Hour) ibuprofen 400 mg tablet 400 mg PO Q8H PRN pain #20 tabs 04/29/24 05/17/24 Rx carbidopa ER 50 mg-levodopa 200 mg 1 tab PO BEDTIME 05/11/24 05/17/24 History tablet,extended release cetirizine 10 mg tablet 10 mg PO DAILY Allergies 05/11/24 05/17/24 History cranberry extract 250 mg tablet 250 mg PO DAILY 05/11/24 05/17/24 History donepezil 10 mg tablet 10 mg PO DAILY 05/11/24 05/17/24 History entacapone 200 mg tablet 100 mg PO QID Parkinson's 05/11/24 05/17/24 History gabapentin 300 mg capsule 600 mg PO BEDTIME 05/11/24 05/17/24 History omeprazole magnesium 20 mg 20 mg PO BID 05/11/24 05/17/24 History tablet,delayed release (Prilosec OTC) sertraline 100 mg tablet 100 mg PO DAILY Depression 05/11/24 05/17/24 History clonazepam 1 mg disintegrating 1 mg PO BID PRN Anxiety or spasm 05/14/24 05/17/24 Rx tablet #14 tabs ertapenem 1 gram solution for 1 g IV Q24H #5 ea 05/14/24 05/17/24 Rx injection Allergies Allergy/AdvReac Type Severity Reaction Status Date / Time Penicillins Allergy Intermediate Hives Verified 05/17/24 10:27 corn Allergy Unknown Verified 05/17/24 10:27 Sulfa (Sulfonamide Allergy Verified 05/17/24 10:27 Antibiotics) Review of Systems Review of Systems Narrative: All else reviewed and otherwise unremarkable except as noted in the history and physical. Exam Vital Signs (past 8 hours): - 05/17/24 10:13 05/17/24 10:16 05/17/24 10:16 Temperature Pulse Rate 83 Respiratory Rate Blood Pressure 156/72 H Pulse Oximetry 87 L 92 Oxygen Delivery Method 05/17/24 10:27 05/17/24 10:30 05/17/24 10:30 Temperature Pulse Rate 83 83 Respiratory Rate 17 Blood Pressure 144/77 H 144/77 H Pulse Oximetry 97 96 Oxygen Delivery Method Room Air 05/17/24 10:45 05/17/24 10:45 05/17/24 11:00 Temperature Pulse Rate 81 82 Respiratory Rate Blood Pressure 139/74 Pulse Oximetry 96 96 Oxygen Delivery Method 05/17/24 11:08 05/17/24 11:30 05/17/24 12:00 Temperature 98.7 F Pulse Rate 86 90 Respiratory Rate Blood Pressure Pulse Oximetry 96 94 Oxygen Delivery Method 05/17/24 12:18 05/17/24 12:18 Temperature Pulse Rate 93 H Respiratory Rate Blood Pressure 151/71 H Pulse Oximetry 94 Oxygen Delivery Method Oxygen Delivery Method Room Air Narrative Exam Narrative: NAD, alert and oriented, fluent speech, calm. She was a very slow speech and flat affect. She was staring. Normocephalic skull, EOMI, anicteric sclera, symmetric pupils. Oropharynx unremarkable, no droop. Neck supple, midline trachea, no adenopathy. Lungs clear, normal rate and effort. Heart regular, no murmur gallop or rub. Abdomen is soft, non distended and non tender. Extremities are free of edema. Skin is free of rash or lesions. Joints are not swollen or deformed. Judgment appears to be abnormal. Objective ECG Impression: Normal sinus rhythm Right axis deviation Nonspecific ST and T wave abnormality Imaging CT scan - head: Radiologist's impression: No acute hemorrhage. No gross loss of bonds-white differentiation. Deep brain stimulators are present. Labs 05/17/24 10:21 05/17/24 10:21 Labs: Laboratory Results - last 24 hr 05/17/24 05/17/24 05/17/24 10:21 10:43 12:43 WBC 5.1 RBC 3.93 L Hgb 12.6 Hct 38.1 MCV 97.2 MCH 32.0 MCHC 32.9 RDW 13.0 Plt Count 256 Neut % (Auto) 60.4 Lymph % (Auto) 30.1 [place] % (Auto) 6.5 Eos % (Auto) 1.9 L Baso % (Auto) 1.1 Neut # (Auto) 3100 Lymph # (Auto) 1500 [place] # (Auto) 300 Eos # (Auto) 100 Baso # (Auto) 100 Sodium 142 Potassium 3.9 Chloride 110 H Carbon Dioxide 27 BUN 16 Creatinine 0.62 Estimated GFR > 60 BUN/Creatinine Ratio 25.8 H Glucose 105 Calcium 9.3 Total Bilirubin 0.6 AST 37 H ALT 14 Alkaline Phosphatase 82 Ammonia < 9 L Total Protein 7.3 Albumin 4.4 Globulin 2.9 Albumin/Globulin Ratio 1.5 Lipase 268 Prolactin 15.3 Urine RBC 0-1/hpf Urine WBC 5-10/hpf H Ur Squamous Epith Cells 5-10 /hpf H Urine Bacteria Occasional (0-1) Ur Culture Indicated? Specimen cultured Vol Urine Centrifuged 5 Salicylates < 1.0 U Opiates 300ng/mL cut Negative Ur Oxycodone Screen Negative Urine Methadone Screen Negative Acetaminophen < 10 Ur Barbiturates Screen Negative U Tricyclic Antidepress Negative Ur Phencyclidine Scrn Negative Ur Amphetamines Screen Negative U Methamphetamines Scrn Negative Ur MDMA Scrn (Ecstasy) Negative U Benzodiazepines Scrn Negative Urine Cocaine Screen Negative U Marijuana (THC) Screen Negative Urine pH Normal Urine Specific [place] Normal Ethyl Alcohol < 10 Ur Creatinine Normal Assessment & Plan Assessment & Plan narrative: 1. Septic encephalopathy, present on admission and active. 2. Presumed ESBL UTI, present on admission and active. 3. Parkinson's disease with a neurostimulator, present on admission and active. 4. Recent discontinuance of benzodiazepines, present on admission and active. Plan: -DNR with simple medical measures as level of care is her preferences. -treat with ertapenem and follow urine culture. -monitor mental status. -her brain stimulator is now charged. She is admitted to observation status, anticipate at least 1 midnight of medical necessity for hospital services. Time-Based Coding :: 35 min spent with patient and on the chart (including review of chart, obtaining history, exam, reviewing outside data, placing orders, documenting exam and treatment plan, and counseling patient) on 05/17. Quality MIPS - Admit I confirm the patient?s Advance Care Plan is present, Code status is documented, Surrogate decision maker is in patient?s record [If Yes, STOP here]: Yes MIPS - Meds 'Current medications' to include all prescriptions, [id number] products, herbals, cannabis/cannabidiol products, and vitamin/mineral/dietary (nutritional) supplements. I have utilized all available resources to obtain, update, or review the patient?s current medications. [If Yes, STOP here]: Yes
[2024-05-17] MEDS: DEXTROSE 5%-0.9% NS 1,000 ML 100 ML IV (15:34)
[2024-05-17] MEDS: HEPARIN 5,000 UNIT/ML VIAL 5000 UNIT SUBCUT ×2 (15:34→20:57)
[2024-05-17] MEDS: ONDANSETRON 4 MG/2 ML INJ IV (15:50)
[2024-05-17] MEDS: ERTAPENEM 1 GM in SODIUM CHLORIDE 0.9% 100 ML IV (17:06)
[2024-05-17] MEDS: ENTACAPONE 200 MG TABLET 100 MG PO ×2 (17:06→21:42)
[2024-05-17] MEDS: CARBIDOPA-LEVODOPA ER 50/200 TABLET 1 EACH PO ×3 (17:06→20:57)
[2024-05-17] MEDS: GABAPENTIN 300 MG CAPSULE 600 MG PO (20:57)
[2024-05-17] MEDS: PANTOPRAZOLE DR 20 MG TABLET PO (20:57)
[2024-05-17] MEDS: ACETAMINOPHEN 325 MG TABLET 650 MG PO (20:57)
[2024-05-17] MEDS: METOCLOPRAMIDE 10 MG/2 ML INJ 5 MG IV (21:42)
[2024-05-18] VITALS: BP 117/52; PULSE 69; RESP 18; TEMP 36.3; O2SAT 93
[2024-05-18] MEDS: DEXTROSE 5%-0.9% NS 1,000 ML 100 ML IV (03:26)
[2024-05-18 04:00] VITALS: BP 131/55; PULSE 66; RESP 18; TEMP 36.4; O2SAT 96
[2024-05-18] MEDS: ONDANSETRON 4 MG/2 ML INJ IV (04:02)
[2024-05-18] MEDS: ACETAMINOPHEN 325 MG TABLET 650 MG PO ×3 (04:06→16:01)
[2024-05-18 05:39] LABS: Add Manual Diff / Slide Review NO; Basophils Absolute Auto 100 /uL (0-100); Basophils Percent Auto 0.9 % (0-2); Eosinophils Absolute Auto 100 /uL (0-450); Eosinophils Percent Auto 2.1 % (2-4); Hematocrit 37.2 % (36-46); Hemoglobin 12.2 g/dL (12.0-16.0); Lymphocytes Absolute Auto 2400 /uL (1100-4500); Lymphocytes Percent Auto 39.7 % (25-40); Mean Corpuscular HGB Conc 32.9 % (30-36); Mean Corpuscular Hemoglobin 32.1 PG (26-34); Mean Corpuscular Volume 97.6 fL (80-100); Monocytes Absolute Auto 500 /uL (0-900); Neutrophils Absolute Auto 2900 /uL (1500-7000); Neutrophils Percent Auto 48.3 % (50-75); Platelet Count 247 X10^3/uL (150-400); Red Blood Cell Count 3.81 X10^6/uL (4.0-5.2); Red Cell Distribution Width 13.2 % (11.6-14.8); White Blood Cell Count 5.9 X10^3/uL (4.5-11.0)
[2024-05-18 05:53] LABS: BUN Creatinine Ratio 23.6 (6-22); Blood Urea Nitrogen 13 mg/dL (7-17); Calcium 9.1 mg/dL (8.4-10.2); Carbon Dioxide 26 mmol/L (22-32); Chloride 111 mmol/L (98-107); Estimated Glomerular Filt Rate > 60 mL/min (>60); Glucose 106 mg/dL (80-110); HEMOLYSIS < 15 (0-50); Potassium 3.4 mmol/L (3.4-5.1); Sodium 140 mmol/L (137-145)
[2024-05-18] MEDS: CARBIDOPA-LEVODOPA ER 50/200 TABLET 1 EACH PO ×5 (06:38→18:53)
[2024-05-18] MEDS: ENTACAPONE 200 MG TABLET 100 MG PO ×5 (06:39→16:04)
--- NOTE | 2024-05-18 07:20 | PM.PN.1 ---
Subjective Subjective Interval history: Hospital course: Patient was admitted from an assisted living facility near the hospital. She has a history of recurrent Klebsiella ESBL infections. She recently finished a 7 day course of ertapenem. She presents now with altered mental status and acute on chronic pubic pain and feels that she was infected and this is why she feels mentally slow and had an altered mental status. She was restarted on ertapenem on May 17 pending cultures. She also has a brain stimulator for her Parkinson's which was Re charge with her charge invest shortly after her arrival on May 17. S: She feels more alert today but to normal. She is having her urine chronic pelvic pain but denies new rash such as yeast. 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 Her neurostimulator was off for about 3 weeks and was just charge last night after she arrived here. She was asked if she can tell when her stimulators on versus being off and she was not really sure. No fevers, or chills. Exam Vital Signs (past 8 hours): - 05/18/24 00:00 05/18/24 04:00 Temperature 97.3 F L 97.6 F Pulse Rate 69 66 Respiratory Rate 18 18 Blood Pressure 117/52 L 131/55 L Pulse Oximetry 93 96 Oxygen Flow Rate 0 0 Oxygen Delivery Method Room Air Oxygen Flow Rate 0 Narrative Exam Narrative: NAD, alert and oriented to person, place, and time. Fluent speech. Chronically ill in appearance. Very interactive today. Lungs are clear, normal rate and effort. Heart is regular, no murmur gallop or rub. Abdomen is soft, non distended. Extremities are free of edema. Objective ECG Impression: Normal sinus rhythm Right axis deviation Nonspecific ST and T wave abnormality Imaging CT scan - head: Radiologist's impression: CT scan - head: Radiologist's impression: No acute hemorrhage. No gross loss of bonds-white differentiation. Deep brain stimulators are present. Labs 05/18/24 05:10 05/18/24 05:10 Labs: Laboratory Results - last 24 hr 05/17/24 05/17/24 05/17/24 10:21 10:43 12:43 WBC 5.1 RBC 3.93 L Hgb 12.6 Hct 38.1 MCV 97.2 MCH 32.0 MCHC 32.9 RDW 13.0 Plt Count 256 Neut % (Auto) 60.4 Lymph % (Auto) 30.1 [place] % (Auto) 6.5 Eos % (Auto) 1.9 L Baso % (Auto) 1.1 Neut # (Auto) 3100 Lymph # (Auto) 1500 [place] # (Auto) 300 Eos # (Auto) 100 Baso # (Auto) 100 Sodium 142 Potassium 3.9 Chloride 110 H Carbon Dioxide 27 BUN 16 Creatinine 0.62 Estimated GFR > 60 BUN/Creatinine Ratio 25.8 H Glucose 105 Calcium 9.3 Total Bilirubin 0.6 AST 37 H ALT 14 Alkaline Phosphatase 82 Ammonia < 9 L Total Protein 7.3 Albumin 4.4 Globulin 2.9 Albumin/Globulin Ratio 1.5 Lipase 268 Prolactin 15.3 Urine RBC 0-1/hpf Urine WBC 5-10/hpf H Ur Squamous Epith Cells 5-10 /hpf H Urine Bacteria Occasional (0-1) Ur Culture Indicated? Specimen cultured Vol Urine Centrifuged 5 Salicylates < 1.0 U Opiates 300ng/mL cut Negative Ur Oxycodone Screen Negative Urine Methadone Screen Negative Acetaminophen < 10 Ur Barbiturates Screen Negative U Tricyclic Antidepress Negative Ur Phencyclidine Scrn Negative Ur Amphetamines Screen Negative U Methamphetamines Scrn Negative Ur MDMA Scrn (Ecstasy) Negative U Benzodiazepines Scrn Negative Urine Cocaine Screen Negative U Marijuana (THC) Screen Negative Urine pH Normal Urine Specific [place] Normal Ethyl Alcohol < 10 Ur Creatinine Normal 05/18/24 05:10 WBC 5.9 RBC 3.81 L Hgb 12.2 Hct 37.2 MCV 97.6 MCH 32.1 MCHC 32.9 RDW 13.2 Plt Count 247 Neut % (Auto) 48.3 L Lymph % (Auto) 39.7 [place] % (Auto) 9.0 Eos % (Auto) 2.1 Baso % (Auto) 0.9 Neut # (Auto) 2900 Lymph # (Auto) 2400 [place] # (Auto) 500 Eos # (Auto) 100 Baso # (Auto) 100 Sodium 140 Potassium 3.4 Chloride 111 H Carbon Dioxide 26 BUN 13 Creatinine 0.55 Estimated GFR > 60 BUN/Creatinine Ratio 23.6 H Glucose 106 Calcium 9.1 Total Bilirubin AST ALT Alkaline Phosphatase Ammonia Total Protein Albumin Globulin Albumin/Globulin Ratio Lipase Prolactin Urine RBC Urine WBC Ur Squamous Epith Cells Urine Bacteria Ur Culture Indicated? Vol Urine Centrifuged Salicylates U Opiates 300ng/mL cut Ur Oxycodone Screen Urine Methadone Screen Acetaminophen Ur Barbiturates Screen U Tricyclic Antidepress Ur Phencyclidine Scrn Ur Amphetamines Screen U Methamphetamines Scrn Ur MDMA Scrn (Ecstasy) U Benzodiazepines Scrn Urine Cocaine Screen U Marijuana (THC) Screen Urine pH Urine Specific [place] Ethyl Alcohol Ur Creatinine [facility] Medical History Parkinson's disease Social History household members: none Smoking Status: Former smoker alcohol intake: never Assessment & Plan Assessment & Plan narrative: 1. Septic encephalopathy, present on admission and active. 2. Presumed ESBL UTI, present on admission and active. 3. Parkinson's disease with a neurostimulator, present on admission and active. 4. Recent discontinuance of benzodiazepines, present on admission and active. 5. Possible lethargy and altered mental status relating to neurostimulator being off for 3 weeks. Present on admission and active. Plan: -DNR with simple medical measures as level of care is her preferences. -treat with ertapenem and follow urine culture. -monitor mental status. -her brain stimulator is now charged. She requires another midnight of hospital level care. We are observing her mental status with her neurostimulator on giving her an additional several days of ertapenem. CONOR: She could possibly return back to [facility] on May 19 if improved clinically. Time-Based Coding :: [TOTAL MINUTES] spent with patient and on the chart (including review of chart, obtaining history, exam, reviewing outside data, placing orders, documenting exam and treatment plan, and counseling patient) on [DATE]. Quality VTE Deep Vein Thrombosis/Pulmonary Embolism Present on Admission: No
[2024-05-18] MEDS: METOCLOPRAMIDE 10 MG/2 ML INJ 5 MG IV ×2 (07:24→18:11)
[2024-05-18 07:43] VITALS: BP 158/61; PULSE 77; RESP 15; TEMP 36.4; O2SAT 99
[2024-05-18] MEDS: PANTOPRAZOLE DR 20 MG TABLET PO ×2 (08:20→19:45)
[2024-05-18] MEDS: LORATADINE 10 MG TABLET PO (08:20)
[2024-05-18] MEDS: DONEPEZIL 5 MG TABLET 10 MG PO (08:20)
[2024-05-18] MEDS: HEPARIN 5,000 UNIT/ML VIAL 5000 UNIT SUBCUT (08:20)
[2024-05-18] MEDS: IBUPROFEN 400 MG TABLET PO ×2 (10:58→19:37)
[2024-05-18 12:00] VITALS: BP 153/71; PULSE 74; RESP 16; TEMP 36.9; O2SAT 96
[2024-05-18] MEDS: OXYCODONE IR 5 MG TABLET PO ×3 (13:19→23:52)
--- NOTE | 2024-05-18 13:29 | CM.DANOTE ---
DCP Assessment Note: Pt is a 73yo female, resident at [facility] in [place], recently admitted 05.14.24 for urosepsis and discharged to [facility] for IVabx. Patient returns with AMS. Pt's Primary Care Provider is Dr. Ramesh Saleh (paty GARZA for [facility]) and insurance is Medicare. Reviewed chart and team rounds for pt's medical status and initial discharge needs. Patient w/PMH of Parkinson's,patient is typically independent with ADLs with some help from [place] staff with monitoring while she is in the shower. Pt's Emergency Contact is Elmo Fuller [phone] who is her POA. No POA paperwork found in pt chart. Pt POLST in chart which states pt is DNR/DNI. According to Micki at [facility], patient is welcome back upon discharge. Plan: Anticipating discharge back to via wheelchair van if patient agreeable to this. No PASRR needed. CM team will follow closely for coordination of discharge plans. NAYA Mendosa Discharge Planning/Care Management CM Discharge Assessment Start: 05/18/24 13:26 Freq: Status: Active Protocol: Document 05/18/24 13:26 SHANDA (Rec: 05/18/24 13:29 SHANDA [id number]) Discharge Planning Assessment Assigned Quality Assurance Monitor Chassis NAYA Barraza DPOA/Assigned Designee Name SYLVAIN Arana Contact Information [phone] Advance Directives? Yes: POLST - DNR/DNI Advance Directives on File No History Provided By Patient,Medical Record Has Patient been admitted in last 30 Yes days? Comment Here 05.14.24 Prior Living Arrangements Skilled Nurse Facility Household Members none Type of transporation used prior to Relies on Others admit Comment Patient lives at [facility], recently at [facility] for IVabx, plan is for return. Facility Name Admitted From: [facility] Willing to Return to Facility? Yes Independent with ADL's No Is patient alert and oriented? No Needs Assistance With Bathing,Grooming,Meal Prep, Toileting,Managing Medications ,Home Chores / Shopping Comment Parkinson's. Patient/Family Preference Alf Facility Barriers to Discharge No Discharge Plan Alf Facility Transportation Arrangement Wheelchair Van Referrals Initiated Alf Additional Comment [facility] accepts back upon discharge
[2024-05-18 16:15] VITALS: BP 144/63; PULSE 80; RESP 18; TEMP 36.5; O2SAT 95
[2024-05-18] MEDS: ERTAPENEM 1 GM in SODIUM CHLORIDE 0.9% 100 ML IV (17:23)
[2024-05-18] MEDS: GABAPENTIN 300 MG CAPSULE 600 MG PO (19:36)
[2024-05-18] MEDS: OXYCODONE/ACETAMINOPHEN 5/325 TABLET 1 TAB PO (19:59)
[2024-05-18 20:00] VITALS: BP 168/83; PULSE 99; RESP 24; TEMP 36.1; O2SAT 95
--- NOTE | 2024-05-18 20:03 | PC.NURSE ---
Addendum entered by Mee Mathews R.N. 05/18/24 22:13: NOC: Reassessed pt, pt declines to rate pain out of 10 but states I feel so much better and Those pain pills really helped. Pt resting comfortably, care continues. Original Note: NOC: Upon assessment, pt shaking and moaning and gripping side rail and asking for help d/t 10/10 pain that started a few minutes prior. Pt has chronic pelvic nerve pain r/t hx of Parkinson's, says she takes only gabapentin at home but that it has been growing in severity over the course of the day. Informed MD Pringle who ordered 5/325 oxycodone/APAP. Administered prescribed medications (see MAR). Care continues, will FU with patient to reassess.
[2024-05-19] VITALS: BP 119/52; PULSE 84; RESP 20; TEMP 36.2; O2SAT 94
[2024-05-19] MEDS: DEXTROSE 5%-0.9% NS 1,000 ML 100 ML IV (02:05)
[2024-05-19] MEDS: ACETAMINOPHEN 325 MG TABLET 650 MG PO ×2 (02:05→09:07)
[2024-05-19] MEDS: METOCLOPRAMIDE 10 MG/2 ML INJ 5 MG IV ×2 (02:05→13:06)
[2024-05-19 05:29] LABS: Blood Urea Nitrogen 8 mg/dL (7-17); Carbon Dioxide 25 mmol/L (22-32); Chloride 111 mmol/L (98-107); Estimated Glomerular Filt Rate > 60 mL/min (>60); Glucose 110 mg/dL (80-110); HEMOLYSIS < 15 (0-50); Potassium 3.5 mmol/L (3.4-5.1); Sodium 141 mmol/L (137-145)
[2024-05-19 05:30] LABS: Add Manual Diff / Slide Review NO; Basophils Absolute Auto 100 /uL (0-100); Basophils Percent Auto 0.9 % (0-2); Eosinophils Absolute Auto 100 /uL (0-450); Eosinophils Percent Auto 1.9 % (2-4); Hematocrit 34.6 % (36-46); Hemoglobin 11.6 g/dL (12.0-16.0); Lymphocytes Absolute Auto 1800 /uL (1100-4500); Lymphocytes Percent Auto 32.4 % (25-40); Mean Corpuscular HGB Conc 33.5 % (30-36); Mean Corpuscular Hemoglobin 32.5 PG (26-34); Mean Corpuscular Volume 96.8 fL (80-100); Monocytes Absolute Auto 500 /uL (0-900); Monocytes Percent Auto 8.6 % (3-14); Neutrophils Absolute Auto 3100 /uL (1500-7000); Neutrophils Percent Auto 56.2 % (50-75); Platelet Count 248 X10^3/uL (150-400); Red Blood Cell Count 3.58 X10^6/uL (4.0-5.2); Red Cell Distribution Width 12.9 % (11.6-14.8); White Blood Cell Count 5.5 X10^3/uL (4.5-11.0)
[2024-05-19 06:21] VITALS: BP 159/78; PULSE 91; RESP 20; TEMP 36.1; O2SAT 96
[2024-05-19] MEDS: IBUPROFEN 400 MG TABLET PO (06:37)
[2024-05-19] MEDS: OXYCODONE IR 5 MG TABLET PO ×2 (06:38→13:06)
[2024-05-19] MEDS: ENTACAPONE 200 MG TABLET 100 MG PO ×3 (06:39→13:08)
[2024-05-19] MEDS: CARBIDOPA-LEVODOPA ER 50/200 TABLET 1 EACH PO ×3 (06:40→13:06)
[2024-05-19 08:00] VITALS: BP 158/73; PULSE 79; RESP 10; TEMP 36.8; O2SAT 95
[2024-05-19] MEDS: LORATADINE 10 MG TABLET PO (09:08)
[2024-05-19] MEDS: HEPARIN 5,000 UNIT/ML VIAL 5000 UNIT SUBCUT (09:08)
[2024-05-19] MEDS: PANTOPRAZOLE DR 20 MG TABLET PO (09:08)
[2024-05-19] MEDS: DONEPEZIL 5 MG TABLET 10 MG PO (09:08)
[2024-05-19] MEDS: ONDANSETRON 4 MG/2 ML INJ IV (09:13)
--- NOTE | 2024-05-19 09:37 | PM.DS.1 ---
History of Present Illness History of Present Illness Date Patient Seen: 05/19/24 Time Patient Seen: 09:37 Chief complaint: Seizure like activity Narrative: The patient was recently discharged back to her assisted living facility after being treated for ESBL urinary tract infection. She completed a 7 day course and has a left arm PICC line in place. She presents today with AMS. She states that she believes she was infected and that is why she was out of it. She has chronic pelvic pain. She states that this comes and goes in his nothing new. She denies specific urinary symptoms including dysuria or hematuria. No recent fevers, or chills. It was noted in the ED that she has a deep brain stimulator for her Parkinson's and there is a question of whether or not it had been charged. She was brought [facility] to the [facility], and her facility brought over her charge her and she has the vest on is currently completing charge of her stimulator. She denies headache or missing recent Parkinson's medications. She denies any diarrhea or constipation issues. Discharge Providers Provider Date of admission: 05/17/24 13:38 Discharge Date: 05/19/24 Primary care physician: Doctor Barb MD Discharge provider: Lorenzo Cole DO Summary Hospital Course Discharge Diagnosis: 1. Acute metabolic vs toxic encephalopathy, present on admission and improving 2. Recent ESBL UTI, present on admission and active. 3. Parkinson's disease with a neurostimulator, present on admission and active. 4. Recent discontinuance of benzodiazepines, present on admission and active. 5. Possible lethargy and altered mental status relating to neurostimulator being off for 3 weeks. Present on admission and active. Hospital Course: This is a 73 year old female who was admitted with an acute encephalopathy. She was recently admitted for an ESBL E coli for which she was on a carbapenem. She was restarted on carbapenem therapy, though after some further investigation she had not received any of her clonazepam at the detention facility when she previously was taking it every night. Her neurostimulator had also been off for 3 weeks which was charged shortly after admission. Repeat urine culture from admission also came back as negative. However, given her presentation and improvement, I did extend her carbapenem course out to 10 days total which she will complete at detention facility. I suspect the most likely etiology to her presenting encephalopathy is probably a benzodiazepine withdrawal, or combination of all of the above. On discharge I had her on her regular scheduled nighttime clonazepam with continued clonazepam twice daily as needed for anxiety or spasms. No other changes to her home medications were recommended on discharge. She is returning to detention for continued therapies as a result of the above, and completion of antibiotic therapy for a total 10 day course from her previous admission as noted above. Time Spent with Patient Time spent: Greater than 30 minutes Exam Vital Signs (past 8 hours): - 05/19/24 06:21 05/19/24 08:00 Temperature 96.9 F L 98.3 F Pulse Rate 91 H 79 Respiratory Rate 20 10 L Blood Pressure 159/78 H 158/73 H Pulse Oximetry 96 95 Oxygen Flow Rate 0 0 Oxygen Delivery Method Room Air Oxygen Flow Rate 0 Narrative Exam Narrative: NAD, alert and oriented to person, place, and time. Fluent speech. Chronically ill in appearance. Very interactive today. Lungs are clear, normal rate and effort. Heart is regular, no murmur gallop or rub. Abdomen is soft, non distended. Extremities are free of edema. Objective Labs 05/19/24 05:00 05/19/24 05:00 Labs: Laboratory Results - last 24 hr 05/19/24 05:00 WBC 5.5 RBC 3.58 L Hgb 11.6 L Hct 34.6 L MCV 96.8 MCH 32.5 MCHC 33.5 RDW 12.9 Plt Count 248 Neut % (Auto) 56.2 Lymph % (Auto) 32.4 [place] % (Auto) 8.6 Eos % (Auto) 1.9 L Baso % (Auto) 0.9 Neut # (Auto) 3100 Lymph # (Auto) 1800 [place] # (Auto) 500 Eos # (Auto) 100 Baso # (Auto) 100 Sodium 141 Potassium 3.5 Chloride 111 H Carbon Dioxide 25 BUN 8 Creatinine 0.57 Estimated GFR > 60 BUN/Creatinine Ratio 14.0 Glucose 110 Calcium 9.0 [facility] Medical History Parkinson's disease Social History household members: none Smoking Status: Former smoker alcohol intake: never Discharge Plan Discharge Plan Patient Disposition: SNF Transfer to: [facility] Healthcare Provider Discharge Comment: 73 F admitted with altered mental status, possible seizure activity. Possible continued cystitis but likely benzo withdrawal. Patient reports taking scheduled clonazepam at night and additionally as needed, continue this on discharge. Now improving. Continue IV antibiotics for another 3 days after discharge for 10 day total course. Discharge orders & Medications Prescriptions: New clonazepam 1 mg tablet 1 mg PO BEDTIME 14 Days Qty: 14 0RF Rx Instructions: administer 30 minutes before bedtime ertapenem 1 gram Recon Soln 1 gm IV Q24H 3 Days Qty: 3 0RF Continued carbidopa-levodopa 25-100 mg tablet extended release 2 tab PO QID Rx Instructions: give 2 tablets four times a day: 0700, 1000, 1300, 1600 donepezil 10 mg tablet 10 mg PO DAILY carbidopa-levodopa 50-200 mg tablet extended release 1 tab PO BEDTIME sertraline 100 mg tablet 100 mg PO DAILY gabapentin 300 mg capsule 600 mg PO BEDTIME Rx Instructions: give at bedtime for RLS cetirizine 10 mg tablet 10 mg PO DAILY entacapone 200 mg tablet 100 mg PO QID Rx Instructions: give 0.5 tablet by mouth four times a day for Parkinson's omeprazole magnesium [Prilosec OTC] 20 mg Tablet,Delayed Release (Dr/Ec) 20 mg PO BID cranberry extract 250 mg Tablet 250 mg PO DAILY clonazepam 1 mg Tablet,Disintegrating 1 mg PO BID PRN (Reason: Anxiety or spasm) Qty: 14 0RF acetaminophen [Tylenol 8 Hour] 650 mg tablet extended release 650 mg PO Q8H PRN (Reason: fever or pain) Qty: 20 0RF ibuprofen 400 mg tablet 400 mg PO Q8H PRN (Reason: pain) Qty: 20 0RF omega-3 fatty acids 1,000 mg capsule 1,000 mg PO DAILY cholecalciferol (vitamin D3) 25 mcg (1,000 unit) capsule 25 mcg PO DAILY flaxseed oil 1,000 mg capsule 1,000 mg PO DAILY Rx Instructions: administer with a meal melatonin 5 mg capsule 5 mg PO BEDTIME gabapentin 100 mg capsule 300 mg PO USEASDIRECTD Rx Instructions: give 1 capsule by mouth at 1300 for RLS Discontinued ertapenem 1 gram Recon Soln 1 g IV Q24H Qty: 5 0RF Follow up/Referrals: Miscellaneous,Doctor, MD [Primary Care Provider] - Discharge Health Status Multidrug resistant organism: Other Precautions: Contact Diet/Activity/Treatments Diet: Regular Liquid consistency: Normal/Thin Food texture: Regular Activity: As tolerated no restrictions Special Rehabilitation Services Reason for rehabilitation: Recovery r/t decondition Rehab type: Physical therapy and Occupational therapy Visit Report/Discharge Packet Stand Alone Forms: Patient Portal/API Discharge Data Primary Care Provider: Miscellaneous,Doctor Quality VTE Deep Vein Thrombosis/Pulmonary Embolism Present on Admission: No
--- NOTE | 2024-05-19 10:57 | CM.DPC ---
DCP Discharge SNF Per MD, pt medically stable to d/c back to SNF today for ongoing IV-Abx and discharge orders placed and met bedside with pt and discussed d/c plan. YULI confirmed [facility] can still accept pt today and time for transport scheduled for 1430 today. JONI Li kindly faxed signed med list, scripts, no PASRR needed since pt is a return, and d/c summary and orders. YULI updated repeater operator, [employer]BE[employer] PIPE SUPERVISOR, and RN and provided number to call report. Plan: Patient to d/c back to [facility] for ongoing IV-Abx today at 1430 before safe return back to [facility]. Gauri Stearns, COMPUTER SYSTEMS CONSULTANT
[2024-05-19 12:00] VITALS: BP 145/72; PULSE 74; RESP 10; TEMP 36.8; O2SAT 97
--- NOTE | 2024-05-19 15:02 | PC.NURSE ---
Addendum entered by Gricelda Barr R.N. 05/19/24 15:07: This RN gave report to LORAINE Coyne at [facility] prior to pt d/c. Original Note: D/c information reviewed with pt. Pt is returning to [facility] with her midline in order to continue antibiotic treatment. Tele removed. Pt showered and dressed with assistance of QUOTATION CHECKER. Pt exited facility via w/c with [facility] personnel.
== END 2024-05-19 14:55 | DRG 689 ==
LOC: ED 13:38 → AC 05-18 10:47
PROVIDERS: Admitting Provider Hospitalist; Emergency Provider Emergency Medicine; Referring Provider Emergency Medicine; Visit Provider Hospitalist
DX: N39.0 Urinary tract infection, site not specified (principal); G92.9 Unspecified toxic encephalopathy; G93.41 Metabolic encephalopathy; F19.239 Other psychoactive substance dependence with withdrawal, unspecified; G20.A1 Parkinson's disease without dyskinesia, without mention of fluctuations; B96.20 Unspecified Escherichia coli [E. coli] as the cause of diseases classified elsewhere; R53.83 Other fatigue; G89.29 Other chronic pain; R56.9 Unspecified convulsions; R10.2 Pelvic and perineal pain; R33.9 Retention of urine, unspecified; Z87.891 Personal history of nicotine dependence; Z66 Do not resuscitate; Z96.82 Presence of neurostimulator
CPT/HCPCS: 36415; 70450; 71045; 80048; 80053; 80305; 80320; 80329; 81003; 81015; 82140; 82962; 83690; 84146; 85025; 87086; 93005; 99284; G0480; J1335; J1644; J2405; J2765

== ENCOUNTER → 2024-05-27 15:53 | Outpatient (ROUT) | payer MEDICARE, MEDICAID, SELFPAY ==
[2024-05-27 16:17] LABS: Appearance Urine UA CLEAR; Bilirubin Urine UA NEGATIVE (NEGATIVE); Color Urine UA YELLOW; Glucose Urine UA NEGATIVE (Negative); Ketones Urine UA TRACE (NEGATIVE); Leukocyte Esterase Urine UA NEGATIVE (NEGATIVE); Nitrite Urine UA NEGATIVE (Negative); Occult Blood Urine UA NEGATIVE (Negative); Protein Urine UA NEGATIVE (Negative); Urobilinogen Urine UA 0.2 E.U./dL (0.2)
[2024-05-27 16:31] LABS: RBC Urine 0-1/HPF (0-5/HPF); Urine Volume 10mL (spun); WBC Urine 1-5/HPF (0-5/HPF)
[2024-05-27 16:32] LABS: Bacteria Urine Occasional (0-1); Calcium Oxalate Crystals Urine Many; Culture Indicated Urine Cult Not Indicated; Squamous Epithelial Cell Urine 0-1 /HPF (0-5/HPF)
== END ==
PROVIDERS: Visit Provider Hospitalist
DX: N39.0 Urinary tract infection, site not specified (principal)
CPT/HCPCS: 81001

== ENCOUNTER 2024-06-03 20:56 | Emergency (ER) | payer MEDICARE, MEDICAID, SELFPAY ==
[2024-06-03] VITALS (9 sets, daily range): BP systolic 101–132; BP diastolic 55–60; PULSE 61–111; RESP 13–39; TEMP 36.8–37.6; O2SAT 91–97
--- NOTE | 2024-06-03 21:04 | ED_ITS ---
HPI - Female Genitourinary General Chief complaint: Urogenital-Female Stated complaint: AMS Time Seen by Provider: 06/03/24 20:56 History of Present Illness HPI Narrative: 73-year-old female with history of Parkinson's dementia, chronic pelvic pain presents by EMS from her [facility] for altered mental status. On arrival it is actually determined that patient is experiencing genital pain. She ate dinner normally, however when they checked on her this evening patient was found agitated, thrashing her hips. She is actually alert and oriented to self - she says that her vagina is hurting her. She states that she is moving her hips to work the pain out. Related Data Home Medications Medication Instructions Recorded Confirmed carbidopa ER 25 mg-levodopa 100 mg 2 tab PO QID 12/31/23 05/17/24 tablet,extended release cholecalciferol (vitamin D3) 25 25 mcg PO DAILY 02/14/24 05/17/24 mcg (1,000 unit) capsule flaxseed oil 1,000 mg capsule 1,000 mg PO DAILY 02/14/24 05/17/24 gabapentin 100 mg capsule 300 mg PO USEASDIRECTD 02/14/24 05/17/24 melatonin 5 mg capsule 5 mg PO BEDTIME 02/14/24 05/17/24 omega-3 fatty acids 1,000 mg 1,000 mg PO DAILY 02/14/24 05/17/24 capsule carbidopa ER 50 mg-levodopa 200 mg 1 tab PO BEDTIME 05/11/24 05/17/24 tablet,extended release cetirizine 10 mg tablet 10 mg PO DAILY Allergies 05/11/24 05/17/24 cranberry extract 250 mg tablet 250 mg PO DAILY 05/11/24 05/17/24 donepezil 10 mg tablet 10 mg PO DAILY 05/11/24 05/17/24 entacapone 200 mg tablet 100 mg PO QID Parkinson's 05/11/24 05/17/24 gabapentin 300 mg capsule 600 mg PO BEDTIME 05/11/24 05/17/24 omeprazole magnesium 20 mg 20 mg PO BID 05/11/24 05/17/24 tablet,delayed release (Prilosec OTC) sertraline 100 mg tablet 100 mg PO DAILY Depression 05/11/24 05/17/24 Previous Rx's Medication Instructions Recorded acetaminophen 650 mg 650 mg PO Q8H PRN fever or pain 04/29/24 tablet,extended release (Tylenol 8 #20 tabs Hour) ibuprofen 400 mg tablet 400 mg PO Q8H PRN pain #20 tabs 04/29/24 clonazepam 1 mg disintegrating 1 mg PO BID PRN Anxiety or spasm 05/14/24 tablet #14 tabs Allergies Allergy/AdvReac Type Severity Reaction Status Date / Time Penicillins Allergy Intermediate Hives Verified 05/17/24 10:27 corn Allergy Unknown Verified 05/17/24 10:27 Sulfa (Sulfonamide Allergy Verified 05/17/24 10:27 Antibiotics) Patient History Medical History Parkinson's disease tobacco type: cigarettes Exam Initial Vital Signs Initial Vital Signs: Vital Signs Pulse Oximetry 96 06/03/24 20:58 Const: Awake, alert, agitated Cardiac: regular rate, regular rhythm RESP: unlabored, clear bilaterally, no wheezing GI: Soft, nontender, nondistended : Database Marketing Analyst present - patient points to area of pain - no abnormalities identified. No reproducible pain Skin: Warm, Dry, intact, no rashes Neuro: oriented to self, CN II-XII grossly intact, moves all extremities Course Orders Ordered: ED Orders 06/03/24 20:59 UA Complete [Urinalysis and Microscopic] Stat 06/03/24 21:00 CBC Auto Diff [Complete Blood Count AUTO DIFF] Stat CMP [Comprehensive Metabolic Panel] Stat Lactate (Lactic Acid) Stat PT [Prothrombin Time INR] Stat Procalcitonin Stat 06/03/24 21:52 Respiratory Panel (Film Array) Stat Discontinued Medications Lorazepam (Lorazepam 2 Mg/Ml Inj) 2 mg IV NOW ONE Stop: 06/03/24 21:04 Last Admin: 06/03/24 21:33 Dose: 2 mg Documented By: MIGUEL ÁNGEL Vital Signs Vital signs: Vital Signs - 8 hr 06/03/24 20:58 06/03/24 20:59 06/03/24 20:59 Temperature Pulse Rate 105 H Respiratory Rate 39 H Blood Pressure 132/60 Pulse Oximetry 96 97 Oxygen Delivery Method 06/03/24 21:00 06/03/24 21:00 06/03/24 21:20 Temperature 98.3 F Pulse Rate 111 H 105 H Respiratory Rate 25 H Blood Pressure 132/60 115/55 L Pulse Oximetry 97 97 Oxygen Delivery Method Room Air 06/03/24 21:20 06/03/24 21:20 06/03/24 21:30 Temperature 99.6 F Pulse Rate 89 83 Respiratory Rate Blood Pressure Pulse Oximetry 95 Oxygen Delivery Method 06/03/24 21:30 06/03/24 22:00 06/03/24 22:00 Temperature Pulse Rate 80 Respiratory Rate 28 H Blood Pressure 101/55 L 104/58 L Pulse Oximetry 91 Oxygen Delivery Method Room Air 06/03/24 22:30 06/03/24 22:30 06/03/24 23:00 Temperature Pulse Rate 80 67 Respiratory Rate 31 H 13 Blood Pressure 105/57 L Pulse Oximetry 95 Oxygen Delivery Method Room Air 06/03/24 23:00 06/03/24 23:30 06/03/24 23:30 Temperature Pulse Rate 61 Respiratory Rate 18 Blood Pressure 103/58 L 108/59 L Pulse Oximetry 97 Oxygen Delivery Method Room Air 06/04/24 00:00 06/04/24 00:00 06/04/24 00:30 Temperature Pulse Rate 61 Respiratory Rate 14 Blood Pressure 130/58 L 108/58 L Pulse Oximetry 97 Oxygen Delivery Method Room Air 06/04/24 00:30 06/04/24 01:00 06/04/24 01:29 Temperature Pulse Rate 61 61 57 L Respiratory Rate 13 18 23 Blood Pressure Pulse Oximetry 97 97 96 Oxygen Delivery Method Room Air Room Air 06/04/24 01:30 Temperature Pulse Rate Respiratory Rate Blood Pressure 112/58 L Pulse Oximetry Oxygen Delivery Method MDM - Female Genitourinary Lab Data 06/03/24 21:00 06/03/24 21:00 Labs: Lab Results 06/03/24 06/03/24 06/03/24 Range/Units 21:00 21:52 23:00 WBC 8.5 (4.5-11.0) X10^3/uL RBC 3.96 L (4.0-5.2) X10^6/uL Hgb 12.8 (12.0-16.0) g/dL Hct 38.0 (36-46) % MCV 96.1 (80-100) fL MCH 32.4 (26-34) PG MCHC 33.7 (30-36) % RDW 12.9 (11.6-14.8) % Plt Count 266 (150-400) X10^3/uL Neut % (Auto) 50.4 (50-75) % Lymph % (Auto) 37.4 (25-40) % [place] % (Auto) 8.4 (3-14) % Eos % (Auto) 2.9 (2-4) % Baso % (Auto) 0.9 (0-2) % Neut # (Auto) 4300 (1648-4388) /uL Lymph # (Auto) 3200 (6479-0103) /uL [place] # (Auto) 700 (0-900) /uL Eos # (Auto) 200 (0-450) /uL Baso # (Auto) 100 (0-100) /uL PT 11.2 (9.4-12.5) SECONDS INR 1.0 (0.9-1.3) Sodium 138 (137-145) mmol/L Potassium 4.5 (3.4-5.1) mmol/L Chloride 109 H (98-107) mmol/L Carbon Dioxide 22 (22-32) mmol/L BUN 20 H (7-17) mg/dL Creatinine 0.80 (0.52-1.04) mg/dL Estimated GFR > 60 (>60) mL/min BUN/Creatinine Ratio 25.0 H (6-22) Glucose 78 L (80-110) mg/dL Lactate 3.0 H 1.3 (0.7-2.1) mmol/L Calcium 10.0 (8.4-10.2) mg/dL Total Bilirubin 0.5 (0.2-1.3) mg/dL AST 26 (14-36) IU/L ALT 17 (<35) IU/L Alkaline Phosphatase 80 (38-126) U/L Total Protein 7.2 (6.3-8.2) g/dL Albumin 4.4 (3.5-5.0) g/dL Globulin 2.8 (1.7-4.1) g/dL Albumin/Globulin Ratio 1.6 (1.0-2.8) Procalcitonin 0.051 (<0.5) ng/mL Chlamy pneumoniae PCR Not detected (Not Detect) Adenovirus (PCR) Not detected (Not Detect) B. pertussis DNA (PCR) Not detected (Not Detect) B.parapertussis DNA PCR Not detected (Not Detecte) Coronavirus OC43 (PCR) Not detected (Not Detect) Coronavirus HKU1 (PCR) Not detected (Not Detect) Coronavirus 229E (PCR) Not detected (Not Detect) SARS-CoV-2 (PCR) Not detected (Not Detecte) Coronavirus NL63 (PCR) Not detected (Not Detect) Human Metapneumovir PCR Not detected (Not Detect) Influenza Type A (PCR) Not detected (Not Detect) Influenza Type B (PCR) Not detected (Not Detect) M. pneumoniae (PCR) Not detected (Not Detect) Parainfluenza 1 (PCR) Not detected (Not Detect) Parainfluenza 2 (PCR) Not detected (Not Detect) Parainfluenza 3 (PCR) Not detected (Not Detect) Parainfluenza 4 (PCR) Not detected (Not Detect) RSV (PCR) Not detected (Not Detect) Entero/Rhino (PCR) Not detected (Not Detect) MDM Narrative Medical decision making narrative: Patient with genital pain. Has longstanding history of chronic pelvic pain and states that this is why she is acting the way that she is. Ativan ordered for agitation. Nursing staff told me that when they came into the room patient reported feeling her pain go away, saying God was in the room now, however when the nurse offered the ativan she wanted it, and so it was administered. She was observed for several hours in the ED without any return of her pain or symptoms. Without any symptoms and resolution of pain no indication for any additional imaging or testing at this time. Patient declined to give urine specimen. Discharge Plan Departure Patient Disposition: Home Clinical Impression: Pain of female genitalia Instructions: DI for Vaginal Itching Activity Restrictions/Additional Instructions: Your laboratory work today was normal. Your genital pain resolved spontaneously and without medications, and so since you did not complain of any other symptoms we did not check a urine specimen today. If you have pain with urination, frequency, or other complaints then please feel free to see your PCP or urologist for a urine specimen. You did not grow any bacteria on your last urine test. Prescriptions: No Action carbidopa-levodopa 25-100 mg tablet extended release 2 tab PO QID Rx Instructions: give 2 tablets four times a day: 0700, 1000, 1300, 1600 donepezil 10 mg tablet 10 mg PO DAILY carbidopa-levodopa 50-200 mg tablet extended release 1 tab PO BEDTIME sertraline 100 mg tablet 100 mg PO DAILY gabapentin 300 mg capsule 600 mg PO BEDTIME Rx Instructions: give at bedtime for RLS cetirizine 10 mg tablet 10 mg PO DAILY entacapone 200 mg tablet 100 mg PO QID Rx Instructions: give 0.5 tablet by mouth four times a day for Parkinson's omeprazole magnesium [Prilosec OTC] 20 mg Tablet,Delayed Release (Dr/Ec) 20 mg PO BID cranberry extract 250 mg Tablet 250 mg PO DAILY clonazepam 1 mg Tablet,Disintegrating 1 mg PO BID PRN (Reason: Anxiety or spasm) Qty: 14 0RF acetaminophen [Tylenol 8 Hour] 650 mg tablet extended release 650 mg PO Q8H PRN (Reason: fever or pain) Qty: 20 0RF ibuprofen 400 mg tablet 400 mg PO Q8H PRN (Reason: pain) Qty: 20 0RF omega-3 fatty acids 1,000 mg capsule 1,000 mg PO DAILY cholecalciferol (vitamin D3) 25 mcg (1,000 unit) capsule 25 mcg PO DAILY flaxseed oil 1,000 mg capsule 1,000 mg PO DAILY Rx Instructions: administer with a meal melatonin 5 mg capsule 5 mg PO BEDTIME gabapentin 100 mg capsule 300 mg PO USEASDIRECTD Rx Instructions: give 1 capsule by mouth at 1300 for RLS Referrals: Miscellaneous,Doctor, MD [Primary Care Provider] - Stand Alone Forms: Patient Portal/API/Survey
[2024-06-03 21:16] LABS: Add Manual Diff / Slide Review NO; Basophils Absolute Auto 100 /uL (0-100); Basophils Percent Auto 0.9 % (0-2); Eosinophils Absolute Auto 200 /uL (0-450); Eosinophils Percent Auto 2.9 % (2-4); Hemoglobin 12.8 g/dL (12.0-16.0); Lymphocytes Absolute Auto 3200 /uL (1100-4500); Lymphocytes Percent Auto 37.4 % (25-40); Mean Corpuscular HGB Conc 33.7 % (30-36); Mean Corpuscular Hemoglobin 32.4 PG (26-34); Mean Corpuscular Volume 96.1 fL (80-100); Monocytes Absolute Auto 700 /uL (0-900); Monocytes Percent Auto 8.4 % (3-14); Neutrophils Absolute Auto 4300 /uL (1500-7000); Neutrophils Percent Auto 50.4 % (50-75); Platelet Count 266 X10^3/uL (150-400); Red Blood Cell Count 3.96 X10^6/uL (4.0-5.2); Red Cell Distribution Width 12.9 % (11.6-14.8); White Blood Cell Count 8.5 X10^3/uL (4.5-11.0)
[2024-06-03 21:23] LABS: Prothrombin Time 11.2 SECONDS (9.4-12.5)
[2024-06-03 21:28] LABS: Alanine Aminotransferase 17 IU/L (<35); Albumin 4.4 g/dL (3.5-5.0); Albumin Globulin Ratio 1.6 (1.0-2.8); Alkaline Phosphatase 80 U/L (38-126); Aspartate Aminotransferase 26 IU/L (14-36); Bilirubin Total 0.5 mg/dL (0.2-1.3); Blood Urea Nitrogen 20 mg/dL (7-17); Carbon Dioxide 22 mmol/L (22-32); Chloride 109 mmol/L (98-107); Estimated Glomerular Filt Rate > 60 mL/min (>60); Globulin 2.8 g/dL (1.7-4.1); Glucose 78 mg/dL (80-110); HEMOLYSIS < 15 (0-50); Potassium 4.5 mmol/L (3.4-5.1); Sodium 138 mmol/L (137-145); Total Protein 7.2 g/dL (6.3-8.2)
[2024-06-03] MEDS: LORazepam 2 MG/ML INJ IV (21:33)
[2024-06-03 21:44] LABS: Procalcitonin 0.051 ng/mL (<0.5)
[2024-06-03 22:48] LABS: Adenovirus Not Detected (Not Detect); B. parapertussis Not Detected (Not Detecte); Bordetella pertussis Not Detected (Not Detect); Chlamydophila pneumoniae Not Detected (Not Detect); Coronavirus 229E Not Detected (Not Detect); Coronavirus HKU1 Not Detected (Not Detect); Coronavirus NL 63 Not Detected (Not Detect); Coronavirus OC43 Not Detected (Not Detect); Human Metapneumovirus Not Detected (Not Detect); Human Rhinovirus/Enterovirus Not Detected (Not Detect); Influenza A Not Detected (Not Detect); Influenza B Not Detected (Not Detect); Mycoplasma pneumoniae Not Detected (Not Detect); Parainfluenza Virus 1 Not Detected (Not Detect); Parainfluenza Virus 2 Not Detected (Not Detect); Parainfluenza Virus 3 Not Detected (Not Detect); Parainfluenza Virus 4 Not Detected (Not Detect); Respiratory Syncytial Virus Not Detected (Not Detect); SARS- CoV-2 Not Detected (Not Detecte)
[2024-06-03 22:49] LABS: Reflexed Lactate in 2 Hours Y
--- NOTE | 2024-06-03 22:52 | PC.NURSE ---
This RN and MARK Rodas got the patient up to the bedside commode, patient was unable to give a urine sample. Placed purewick.
--- NOTE | 2024-06-03 22:55 | PC.NURSE ---
2100-- patient arrived in department with reports of 10/10 pelvic pain, patient is unable to remain still on the bed. Patient is very diaphoretic, oral temp 98.6, axillary 99.6. Provider Yovany at bedside orders ativan, see MAR. This RN completes a bladder scan, patient had 120cc. Patient reports that she is calm now and is ready to go home to God, provider aware.
[2024-06-03 23:30] LABS: Lactate 2HR (Lactic Acid Rflx) 1.3 mmol/L (0.7-2.1)
[2024-06-04] VITALS: BP 130/58; PULSE 61; RESP 14; O2SAT 97
[2024-06-04 00:30] VITALS: BP 108/58; PULSE 61; RESP 13; O2SAT 97
[2024-06-04 01:00] VITALS: PULSE 61; RESP 18; O2SAT 97
[2024-06-04 01:29] VITALS: PULSE 57; RESP 23; O2SAT 96
[2024-06-04 01:30] VITALS: BP 112/58
--- NOTE | 2024-06-04 01:43 | PC.NURSE ---
Called [facility] rehab/assisted living and gave report to the nurse at .
== END 2024-06-04 01:55 | disposition home or self-care (01) ==
PROVIDERS: Emergency Provider Emergency Medicine
DX: R10.2 Pelvic and perineal pain (principal); L29.2 Pruritus vulvae; G20.A1 Parkinson's disease without dyskinesia, without mention of fluctuations; F02.80 Dementia in other diseases classified elsewhere, unspecified severity, without behavioral disturbance, psychotic disturbance, mood disturbance, and anxiety; Z87.891 Personal history of nicotine dependence; Z87.440 Personal history of urinary (tract) infections
CPT/HCPCS: 36415; 80053; 83605; 84145; 85025; 85610; 87633; 96374; 99284; J2060

== ENCOUNTER → 2024-07-07 22:46 | Outpatient (ROUT) | payer MEDICARE, MEDICAID, SELFPAY ==
[2024-07-07 22:53] LABS: Appearance Urine UA CLEAR; Bilirubin Urine UA NEGATIVE (NEGATIVE); Color Urine UA YELLOW; Glucose Urine UA NEGATIVE (Negative); Ketones Urine UA TRACE (NEGATIVE); Leukocyte Esterase Urine UA NEGATIVE (NEGATIVE); Nitrite Urine UA POSITIVE (Negative); Occult Blood Urine UA NEGATIVE (Negative); Protein Urine UA NEGATIVE (Negative)
[2024-07-07 22:56] LABS: pH Urine UA 5.5 (4.5-8.0)
[2024-07-07 23:00] LABS: Bacteria Urine Few (2-10); Calcium Oxalate Crystals Urine Few; Culture Indicated Urine Specimen Cultured; RBC Urine None Seen (0-5/HPF); Squamous Epithelial Cell Urine 1-5 /HPF (0-5/HPF); Urine Volume 10mL (spun); WBC Urine 0-1/HPF (0-5/HPF)
== END ==
PROVIDERS: Visit Provider Registered Nurse
DX: N39.0 Urinary tract infection, site not specified (principal)
CPT/HCPCS: 81001; 87086

== ENCOUNTER → 2024-08-25 13:43 | Outpatient (ROUT) | payer MEDICARE, MEDICAID, SELFPAY ==
[2024-08-25 13:52] LABS: Appearance Urine UA CLEAR; Bilirubin Urine UA NEGATIVE (NEGATIVE); Color Urine UA ORANGE; Glucose Urine UA TRACE g/dL (Negative); Ketones Urine UA TRACE (NEGATIVE); Leukocyte Esterase Urine UA TRACE (NEGATIVE); Nitrite Urine UA POSITIVE (Negative); Occult Blood Urine UA NEGATIVE (Negative); Protein Urine UA 1+ (Negative)
[2024-08-25 13:53] LABS: pH Urine UA 5.5 (4.5-8.0)
[2024-08-25 14:00] LABS: Bacteria Urine Few (2-10); Culture Indicated Urine Specimen Cultured; Hyaline Casts Urine 1-5/LPF; Mucus Urine 1+ (Negative); RBC Urine 0-1/HPF (0-5/HPF); Squamous Epithelial Cell Urine 1-5 /HPF (0-5/HPF); Urine Volume 10mL (spun); WBC Urine 1-5/HPF (0-5/HPF)
== END ==
PROVIDERS: Visit Provider Registered Nurse
DX: N39.0 Urinary tract infection, site not specified (principal)
CPT/HCPCS: 81001; 87077; 87086; 87147

== ENCOUNTER → 2024-08-29 17:05 | Outpatient (CLI) | payer MEDICARE, MEDICAID, SELFPAY | PROVIDERS: Referring Provider Urology; Visit Provider Urology | DX: N39.0 Urinary tract infection, site not specified (principal) | CPT/HCPCS: 87086 ==

== ENCOUNTER → 2024-09-24 06:13 | Outpatient (ROUT) | payer MEDICARE, MEDICAID, SELFPAY | LOC: LAB 06:14 | PROVIDERS: Visit Provider Registered Nurse | DX: Z13.9 Encounter for screening, unspecified (principal) | CPT/HCPCS: 36415 ==

== ENCOUNTER → 2024-10-01 06:05 | Outpatient (ROUT) | payer MEDICARE, MEDICAID, SELFPAY ==
[2024-10-01 07:27] LABS: Hemoglobin 12.9 g/dL (12.0-16.0); Mean Corpuscular HGB Conc 33.2 % (30-36); Mean Corpuscular Hemoglobin 31.2 PG (26-34); Platelet Count 191 X10^3/uL (150-400); Red Blood Cell Count 4.15 X10^6/uL (4.0-5.2); Red Cell Distribution Width 13.9 % (11.6-14.8); White Blood Cell Count 5.9 X10^3/uL (4.5-11.0)
[2024-10-01 07:44] LABS: Blood Urea Nitrogen 17 mg/dL (7-17); Calcium 9.6 mg/dL (8.4-10.2); Carbon Dioxide 28 mmol/L (22-32); Chloride 105 mmol/L (98-107); Estimated Glomerular Filt Rate > 60 mL/min (>60); Glucose 98 mg/dL (70-99); HEMOLYSIS < 15 (0-50); Potassium 4.1 mmol/L (3.4-5.1); Sodium 141 mmol/L (137-145)
[2024-10-01 08:00] LABS: Vitamin D 25 Hydroxy (D3) 38.1 ng/mL (30.0-100.0)
[2024-10-01 08:17] LABS: Thyroid Stimulating Hormone 2.65 uIU/mL (0.47-4.68)
[2024-10-01 08:53] LABS: Vitamin B12 678 pg/mL (239-931)
== END ==
LOC: LAB 06:05
PROVIDERS: Visit Provider Registered Nurse
DX: C50.919 Malignant neoplasm of unspecified site of unspecified female breast (principal); D51.9 Vitamin B12 deficiency anemia, unspecified; F03.90 Unspecified dementia, unspecified severity, without behavioral disturbance, psychotic disturbance, mood disturbance, and anxiety; F33.1 Major depressive disorder, recurrent, moderate; F33.9 Major depressive disorder, recurrent, unspecified; F41.8 Other specified anxiety disorders; G20.B2 Parkinson's disease with dyskinesia, with fluctuations; G25.81 Restless legs syndrome; B96.29 Other Escherichia coli [E. coli] as the cause of diseases classified elsewhere; G47.00 Insomnia, unspecified; I95.9 Hypotension, unspecified; J45.909 Unspecified asthma, uncomplicated; M19.90 Unspecified osteoarthritis, unspecified site; M62.81 Muscle weakness (generalized); M84.30XA Stress fracture, unspecified site, initial encounter for fracture; N20.0 Calculus of kidney; N32.81 Overactive bladder; N39.0 Urinary tract infection, site not specified; N39.8 Other specified disorders of urinary system; N81.4 Uterovaginal prolapse, unspecified; N95.2 Postmenopausal atrophic vaginitis; R10.2 Pelvic and perineal pain; R19.7 Diarrhea, unspecified; R27.8 Other lack of coordination; R30.0 Dysuria; R41.841 Cognitive communication deficit; Z16.12 Extended spectrum beta lactamase (ESBL) resistance; Z87.440 Personal history of urinary (tract) infections
CPT/HCPCS: 36415; 80048; 82306; 82607; 82746; 84443; 85027

== ENCOUNTER 2024-10-04 10:55 | Observation (INO) | payer MEDICARE, MEDICAID, SELFPAY ==
[2024-10-04] VITALS (45 sets, daily range): BP systolic 105–167; BP diastolic 54–131; PULSE 56–80; RESP 12–27; TEMP 36.3–37; O2SAT 93–97; BMI 20.9
--- NOTE | 2024-10-04 11:09 | DI.CT.S_ITS ---
PROCEDURE: CT HEAD/BRAIN WO CON INDICATIONS: alt MSE TECHNIQUE: Noncontrast 4.5 mm thick angled axial sections acquired from the foramen magnum to the vertex, with coronal and sagittal reformats. For radiation dose reduction, the following was used: automated exposure control, adjustment of mA and/or kV according to patient size. COMPARISON: [facility], CT, CT HEAD/BRAIN WO CON, 05/17/2024, 10:58. FINDINGS: Image quality: Diagnostic. CSF spaces: Basal cisterns are patent. No extra-axial fluid collections. The ventricles are symmetric in size and shape. Brain: No acute intracranial hemorrhage or mass effect. Bilateral deep brain stimulator leads are unchanged. There is cerebral volume loss, with resultant ventricular and sulcal prominence. There are periventricular and deep white matter chronic small vessel ischemic changes. There is intracranial internal carotid artery atherosclerosis. Skull and face: Calvarium and visualized facial bones appear intact, without suspicious lesions. Sinuses: Visualized sinuses and mastoids are clear. IMPRESSION: No acute intracranial pathology. No significant interval change. Approved by: Dwaine Jarrett M.D. on 10/04/2024 at 10:53
--- NOTE | 2024-10-04 11:11 | PC.NURSE ---
Patient arrived via EMS minimally responsive. EMS state POA would like phone call immediately upon arrival. This RN has attempted to do so 3 times. Elmo Cooney [phone].
[2024-10-04 11:16] LABS: Prothrombin Time 11.4 SECONDS (9.4-12.5)
--- NOTE | 2024-10-04 11:18 | ED.AMS ---
HPI - Altered Mental Status General Chief Complaint: Altered Mental Status Stated Complaint: Altered Mental Status Time Seen by Provider: 10/04/24 11:07 Source: EMS Mode of arrival: EMS History of Present Illness HPI narrative: 73-year-old female resident of adjacent [facility] with DNR code status, noted by staff and POA friend to have change in mental status today, not particularly acute but more through the day since this morning, no fall injury trauma noted. No change in medications known. EMS transport with normal glucose during transport, no interventions en route. Diminished GCS, no airway interventions, maintaining her airway but altered in mental status. No known shaking or seizure-like activity. No incontinence of urine or stool. Chart history of urinary tract infections noted. DNR code status noted on [facility] transfer paperwork. Await arrival of POA. Related Data Home Medications Medication Instructions Recorded Confirmed carbidopa ER 25 mg-levodopa 100 mg 2 tab PO QID 12/31/23 10/04/24 tablet,extended release cholecalciferol (vitamin D3) 25 25 mcg PO DAILY 02/14/24 10/04/24 mcg (1,000 unit) capsule melatonin 5 mg capsule 5 mg PO BEDTIME 02/14/24 10/04/24 omega-3 fatty acids 1,000 mg 1,000 mg PO DAILY 02/14/24 10/04/24 capsule carbidopa ER 50 mg-levodopa 200 mg 1 tab PO BEDTIME 05/11/24 10/04/24 tablet,extended release cetirizine 10 mg tablet 10 mg PO DAILY Allergies 05/11/24 10/04/24 cranberry extract 250 mg tablet 250 mg PO DAILY 05/11/24 10/04/24 donepezil 10 mg tablet 10 mg PO DAILY 05/11/24 10/04/24 entacapone 200 mg tablet 100 mg PO QID Parkinson's 05/11/24 10/04/24 omeprazole magnesium 20 mg 20 mg PO BID 05/11/24 10/04/24 tablet,delayed release (Prilosec OTC) sertraline 100 mg tablet 100 mg PO DAILY Depression 05/11/24 10/04/24 ascorbate calcium (vitamin C) 500 1 g PO BID 08/29/24 10/04/24 mg tablet baclofen 10 mg tablet 10 mg PO Q8HR PRN Muscle Spasticity 08/29/24 10/04/24 cranberry fruit concentrate 250 mg 250 mg PO DAILY 08/29/24 10/04/24 chewable tablet (Azo Cranberry) d-mannose 500 mg capsule 500 mg PO 08/29/24 09/15/24 mecobalamin (vitamin B12) 500 mcg 500 mcg PO 08/29/24 08/29/24 chewable tablet ondansetron 4 mg disintegrating 4 mg PO Q8H PRN Nausea And Vomiting 08/29/24 10/04/24 tablet pregabalin 100 mg capsule 100 mg PO DAILY 09/15/24 10/04/24 ropinirole 1 mg tablet 1 mg PO DAILY 09/15/24 10/04/24 baclofen 10 mg tablet 10 mg PO BEDTIME 10/04/24 10/04/24 clonazepam 1 mg tablet 1 mg PO BEDTIME 10/04/24 10/04/24 pregabalin 150 mg capsule 150 mg PO BEDTIME 10/04/24 10/04/24 Previous Rx's Medication Instructions Recorded acetaminophen 650 mg 650 mg PO Q8H PRN fever or pain 04/29/24 tablet,extended release (Tylenol 8 #20 tabs Hour) ibuprofen 400 mg tablet 400 mg PO Q8H PRN pain #20 tabs 04/29/24 clonazepam 1 mg disintegrating 1 mg PO BID PRN Anxiety or spasm 05/14/24 tablet #14 tabs Allergies Allergy/AdvReac Type Severity Reaction Status Date / Time Penicillins Allergy Intermediate Hives Verified 09/15/24 09:58 corn Allergy Unknown Verified 09/15/24 09:58 Sulfa (Sulfonamide Allergy Verified 09/15/24 09:58 Antibiotics) Patient History Medical History (Updated 10/04/24 @ 15:51 by America Giordano RN) Unspecified dementia, unspecified severity, without behavioral disturbance, psychotic disturbance, mood disturbance, and anxiety Restless leg syndrome Vitamin B12 deficiency Parkinson's disease with dyskinesia and fluctuating manifestations Other specified disorders of urinary system Lack of coordination Muscle weakness (generalized) Insomnia, unspecified Extended spectrum beta lactamase (ESBL) resistance Diarrhea, unspecified Calculus of kidney Uterovaginal prolapse, unspecified Unspecified osteoarthritis, unspecified site Stress fracture Post-menopausal atrophic vaginitis Pelvic and perineal pain Overactive bladder Anxiety disorder Malignant neoplasm of breast Hypotension, unspecified Major depressive disorder, recurrent Cognitive communication deficit Asthma Parkinson's disease Social History household members: none Smoking Status: Former smoker alcohol intake: never Smoking Status: Former smoker tobacco type: cigarettes alcohol intake frequency: holidays/special occasions only Exam Narrative Exam Narrative: GENERAL: Well-developed patient. Lethargic appearing. HEAD: Atraumatic. Normocephalic. EYES: Pupils equal round and reactive. Extraocular motions intact. No scleral icterus. No injection or drainage. ENT: Nose without bleeding, purulent drainage. Throat without erythema, tonsillar hypertrophy or exudate. Airway patent. NECK: Trachea midline. Non tender CARDIOVASCULAR: Regular rate and rhythm without murmurs, gallops, or rubs. RESPIRATORY: Clear to auscultation. Breath sounds equal bilaterally. No wheezes, rales, or rhonchi. GASTROINTESTINAL: Abdomen soft, non-tender, nondistended. No wince on palpation. EXTREMITIES: No edema or joint tenderness. BACK: Nontender without deformity or crepitance. No flank tenderness. NEURO: Diminished mental status apparently different then be sign although there is no other historians immediately available. GCS [id number] =8. Opens eyes to voice, no speech, localizes to painful stimuli. No obvious rigidity or spasticity with passive ROM. SKIN: No rash or erythema of visible areas Initial Vital Signs Initial Vital Signs: Vital Signs Pulse Rate 66 10/04/24 10:59 Respiratory Rate 16 10/04/24 10:59 Pulse Oximetry 94 10/04/24 10:59 Course Orders Ordered: Acetaminophen (Acetaminophen 325 Mg Tablet) 650 mg PO Q6H PRN PRN Reason: Fever/Mild Pain (1-3) Last Admin: 10/04/24 21:18 Dose: 650 mg Documented By: WHITNEY Carbidopa/Levodopa (Carbidopa-Levodopa 25/100 Tablet) 2 each PO 0700,1000,1300,1600 [facility] Last Admin: 10/05/24 06:46 Dose: 2 each Documented By: WHITNEY Entacapone (Entacapone 200 Mg Tablet) 100 mg PO 0700,1300,1600,2100 [facility] Last Admin: 10/05/24 06:47 Dose: 100 mg Documented By: WHITNEY Naloxone HCl (Naloxone 0.4 Mg/Ml Vial) 0.2 mg IV Q2MIN PRN PRN Reason: Opiate Reversal Discontinued Medications Ceftriaxone Sodium 2,000 mg/ (Sodium Chloride) 100 mls @ 200 mls/hr IV NOW ONE Stop: 10/04/24 11:18 Last Infusion: 10/04/24 12:44 Dose: Infused Documented By: Admin: 10/04/24 12:12 Dose: 200 mls/hr Documented By: RB Sodium Chloride (Normal Saline 0.9%) 1,000 mls @ 100 mls/hr IV CONT MICH Stop: 10/05/24 00:14 Last Infusion: 10/05/24 02:30 Dose: Infused Documented By: Admin: 10/04/24 16:30 Dose: 100 mls/hr Documented By: CORETTA Ibuprofen (Ibuprofen 400 Mg Tablet) 400 mg PO Q8HR PRN PRN Reason: Pain, Mild (1-3) Stop: 10/05/24 06:00 Last Admin: 10/04/24 22:47 Dose: 400 mg Documented By: WHITNEY Vital Signs Vital signs: Vital Signs - 8 hr 10/04/24 12:30 10/04/24 12:30 10/04/24 12:35 Temperature 98.4 F Pulse Rate 57 L Respiratory Rate Blood Pressure 118/56 L 119/59 L Pulse Oximetry 95 10/04/24 12:35 10/04/24 12:40 10/04/24 12:40 Temperature 98.4 F 98.4 F Pulse Rate 57 L 60 Respiratory Rate Blood Pressure 123/60 Pulse Oximetry 95 95 10/04/24 12:45 10/04/24 12:45 10/04/24 12:50 Temperature 98.4 F Pulse Rate 58 L Respiratory Rate Blood Pressure 112/57 L 117/59 L Pulse Oximetry 95 10/04/24 12:50 10/04/24 12:55 10/04/24 12:55 Temperature 98.4 F 98.4 F Pulse Rate 59 L 57 L Respiratory Rate Blood Pressure 113/58 L Pulse Oximetry 94 95 10/04/24 13:00 10/04/24 13:00 10/04/24 13:05 Temperature 98.4 F Pulse Rate 56 L Respiratory Rate Blood Pressure 105/56 L 118/59 L Pulse Oximetry 94 10/04/24 13:05 10/04/24 13:10 10/04/24 13:10 Temperature 98.4 F 98.4 F Pulse Rate 58 L 58 L Respiratory Rate Blood Pressure 118/59 L Pulse Oximetry 95 94 10/04/24 13:15 10/04/24 13:15 10/04/24 13:20 Temperature 98.4 F Pulse Rate 57 L Respiratory Rate Blood Pressure 109/54 L 119/59 L Pulse Oximetry 94 10/04/24 13:20 10/04/24 13:25 10/04/24 13:25 Temperature 98.4 F 98.4 F Pulse Rate 59 L 58 L Respiratory Rate Blood Pressure 124/55 L Pulse Oximetry 95 94 10/04/24 13:30 10/04/24 13:30 10/04/24 13:35 Temperature 98.4 F Pulse Rate 57 L Respiratory Rate 25 H Blood Pressure 117/56 L 121/59 L Pulse Oximetry 94 10/04/24 13:35 10/04/24 13:40 10/04/24 13:40 Temperature 98.4 F 98.4 F Pulse Rate 57 L 58 L Respiratory Rate 23 Blood Pressure 119/58 L Pulse Oximetry 95 94 10/04/24 13:45 10/04/24 13:45 10/04/24 13:50 Temperature 98.4 F 98.4 F Pulse Rate 59 L 61 Respiratory Rate Blood Pressure 119/55 L Pulse Oximetry 95 94 10/04/24 13:50 10/04/24 13:55 10/04/24 13:55 Temperature 98.2 F Pulse Rate 56 L Respiratory Rate Blood Pressure 127/61 116/56 L Pulse Oximetry 94 MDM - Altered Mental Status Lab Data Attestation: I reviewed the patient's lab results. Lab results narrative: POC glucose 101. White blood cell count 4300, hemoglobin 12.2, platelets adequate. Serum glucose 103. BUN 11 with creatinine 0.59 normal renal function. Serum CO2 normal. Sodium and potassium levels normal. Liver functions normal. Blood alcohol level negative. 10/05/24 05:40 10/05/24 05:40 Labs: Lab Results 10/04/24 10/04/24 10/04/24 Range/Units 11:00 11:32 12:05 WBC 4.3 L (4.5-11.0) X10^3/uL RBC 3.87 L (4.0-5.2) X10^6/uL Hgb 12.2 (12.0-16.0) g/dL Hct 36.1 (36-46) % MCV 93.4 (80-100) fL MCH 31.5 (26-34) PG MCHC 33.7 (30-36) % RDW 13.9 (11.6-14.8) % Plt Count 208 (150-400) X10^3/uL Neut % (Auto) 60.9 (50-75) % Lymph % (Auto) 27.0 (25-40) % Cochran % (Auto) 7.8 (3-14) % Eos % (Auto) 3.6 (2-4) % Baso % (Auto) 0.7 (0-2) % Neut # (Auto) 2600 (4247-8946) /uL Lymph # (Auto) 1200 (4604-6517) /uL Cochran # (Auto) 300 (0-900) /uL Eos # (Auto) 200 (0-450) /uL Baso # (Auto) 0 (0-100) /uL PT 11.4 (9.4-12.5) SECONDS INR 1.0 (0.9-1.3) Sodium 141 (137-145) mmol/L Potassium 4.0 (3.4-5.1) mmol/L Chloride 110 H (98-107) mmol/L Carbon Dioxide 27 (22-32) mmol/L BUN 11 (7-17) mg/dL Creatinine 0.59 (0.52-1.04) mg/dL Estimated GFR > 60 (>60) mL/min BUN/Creatinine Ratio 18.6 (6-22) Glucose 103 H (70-99) mg/dL Lactate 0.7 (0.7-2.1) mmol/L Calcium 9.4 (8.4-10.2) mg/dL Total Bilirubin 0.7 (0.2-1.3) mg/dL AST 22 (14-36) IU/L ALT 7 (<35) IU/L Alkaline Phosphatase 81 (38-126) U/L Ammonia 17 (9-30) umol/L Total Protein 6.8 (6.3-8.2) g/dL Albumin 4.0 (3.5-5.0) g/dL Globulin 2.8 (1.7-4.1) g/dL Albumin/Globulin Ratio 1.4 (1.0-2.8) Urine Color Yellow Urine Appearance Clear Urine pH 6.0 (4.5-8.0) Ur Specific Dexter <=1.005 (1.000-1.035) Urine Protein Negative (Negative) Urine Glucose (UA) Negative (Negative) g/dL Urine Ketones Negative (NEGATIVE) Urine Occult Blood Negative (Negative) Urine Nitrate Negative (Negative) Urine Bilirubin Negative (NEGATIVE) Urine Urobilinogen 0.2 (0.2) E.U./dL Ur Leukocyte Esterase Negative (NEGATIVE) Urine RBC None seen (0-5/HPF) Urine WBC None seen (0-5/HPF) Ur Squamous Epith Cells 0-1 /hpf (0-5/HPF) Urine Bacteria None seen (None) Ur Culture Indicated? Cult not indicated Vol Urine Centrifuged 10ml (spun) Salicylates < 1.0 (<20) mg/dL U Opiates 300ng/mL cut Negative (Negative) Ur Oxycodone Screen Negative (Negative) Urine Methadone Screen Negative (Negative) Ur Barbiturates Screen Negative (Negative) U Tricyclic Antidepress Negative (Negative) Ur Phencyclidine Scrn Negative (Negative) Ur Amphetamines Screen Negative (Negative) U Methamphetamines Scrn Negative (Negative) Ur MDMA Scrn (Ecstasy) Negative (Negative) U Benzodiazepines Scrn Negative (Negative) Urine Cocaine Screen Negative (Negative) U Marijuana (THC) Screen Negative (Negative) Urine Specific Dexter (Normal) Ethyl Alcohol < 10 (<10) mg/dL Ur Creatinine (Normal) 05/24/25 Range/Units 12:05 WBC (4.5-11.0) X10^3/uL RBC (4.0-5.2) X10^6/uL Hgb (12.0-16.0) g/dL Hct (36-46) % MCV (80-100) fL MCH (26-34) PG MCHC (30-36) % RDW (11.6-14.8) % Plt Count (150-400) X10^3/uL Neut % (Auto) (50-75) % Lymph % (Auto) (25-40) % Cochran % (Auto) (3-14) % Eos % (Auto) (2-4) % Baso % (Auto) (0-2) % Neut # (Auto) (6399-3948) /uL Lymph # (Auto) (5819-8509) /uL Cochran # (Auto) (0-900) /uL Eos # (Auto) (0-450) /uL Baso # (Auto) (0-100) /uL PT (9.4-12.5) SECONDS INR (0.9-1.3) Sodium (137-145) mmol/L Potassium (3.4-5.1) mmol/L Chloride (98-107) mmol/L Carbon Dioxide (22-32) mmol/L BUN (7-17) mg/dL Creatinine (0.52-1.04) mg/dL Estimated GFR (>60) mL/min BUN/Creatinine Ratio (6-22) Glucose (70-99) mg/dL Lactate (0.7-2.1) mmol/L Calcium (8.4-10.2) mg/dL Total Bilirubin (0.2-1.3) mg/dL AST (14-36) IU/L ALT (<35) IU/L Alkaline Phosphatase (38-126) U/L Ammonia (9-30) umol/L Total Protein (6.3-8.2) g/dL Albumin (3.5-5.0) g/dL Globulin (1.7-4.1) g/dL Albumin/Globulin Ratio (1.0-2.8) Urine Color Urine Appearance Urine pH Normal (4.5-8.0) Ur Specific Dexter (1.000-1.035) Urine Protein (Negative) Urine Glucose (UA) (Negative) g/dL Urine Ketones (NEGATIVE) Urine Occult Blood (Negative) Urine Nitrate (Negative) Urine Bilirubin (NEGATIVE) Urine Urobilinogen (0.2) E.U./dL Ur Leukocyte Esterase (NEGATIVE) Urine RBC (0-5/HPF) Urine WBC (0-5/HPF) Ur Squamous Epith Cells (0-5/HPF) Urine Bacteria (None) Ur Culture Indicated? Vol Urine Centrifuged Salicylates (<20) mg/dL U Opiates 300ng/mL cut (Negative) Ur Oxycodone Screen (Negative) Urine Methadone Screen (Negative) Ur Barbiturates Screen (Negative) U Tricyclic Antidepress (Negative) Ur Phencyclidine Scrn (Negative) Ur Amphetamines Screen (Negative) U Methamphetamines Scrn (Negative) Ur MDMA Scrn (Ecstasy) (Negative) U Benzodiazepines Scrn (Negative) Urine Cocaine Screen (Negative) U Marijuana (THC) Screen (Negative) Urine Specific Dexter Normal (Normal) Ethyl Alcohol (<10) mg/dL Ur Creatinine Normal (Normal) Point of Care Testing Glucose POC 101 Imaging Data Chest x-ray: Radiologist's Impression: [address] [address] XRay Report Signed Patient: Carissa Evans MR#: [id number] : 1950 Acct:[id number] Age/Sex: 73 / F Date of Service: 10/04/24 Loc: ED Accession Number: [id number] Procedure: XR chest 1V Ordering Provider: Manjit Suarez MD PROCEDURE: XR CHEST 1V INDICATIONS: alt MSE, eval for aspiration TECHNIQUE: One view of the chest was acquired. COMPARISON: [facility], CR, XR CHEST 1V, 05/17/2024, 10:20. [facility], CR, XR CHEST 1V, 04/05/2024, 17:16. FINDINGS: Surgical changes and devices: Left chest wall generator. Lungs and pleura: Lungs are clear. No pleural effusions or pneumothorax. Mediastinum: Mediastinal contours appear normal. Heart size is normal. Bones and chest wall: No suspicious bony lesions. Overlying soft tissues appear unremarkable. IMPRESSION: No acute cardiopulmonary abnormality is seen. Dictated by: Kentrell Francis M.D. on 10/04/2024 at 12:29 Approved by: Kentrell Francis M.D. on 10/04/2024 at 12:29 CT scan - head: Radiologist's Impression: [address] [address] [address] Scan Report Signed Patient: Carissa Evans MR#: [id number] : 1950 Acct:[id number] Age/Sex: 73 / F Date of Service: 10/04/24 Loc: ED Accession Number: [id number] Procedure: CT head/brain wo con Ordering Provider: Manjit Suarez MD PROCEDURE: CT HEAD/BRAIN WO CON INDICATIONS: alt MSE TECHNIQUE: Noncontrast 4.5 mm thick angled axial sections acquired from the foramen magnum to the vertex, with coronal and sagittal reformats. For radiation dose reduction, the following was used: automated exposure control, adjustment of mA and/or kV according to patient size. COMPARISON: [facility], CT, CT HEAD/BRAIN WO CON, 05/17/2024, 10:58. FINDINGS: Image quality: Diagnostic. CSF spaces: Basal cisterns are patent. No extra-axial fluid collections. The ventricles are symmetric in size and shape. Brain: No acute intracranial hemorrhage or mass effect. Bilateral deep brain stimulator leads are unchanged. There is cerebral volume loss, with resultant ventricular and sulcal prominence. There are periventricular and deep white matter chronic small vessel ischemic changes. There is intracranial internal carotid artery atherosclerosis. Skull and face: Calvarium and visualized facial bones appear intact, without suspicious lesions. Sinuses: Visualized sinuses and mastoids are clear. IMPRESSION: No acute intracranial pathology. No significant interval change. Approved by: Dwaine Jarrett M.D. on 10/04/2024 at 10:53 MDM Narrative Medical decision making narrative: 73-year-old female resident of nearby adjacent nursing facility noted to have decreased mental status through the day per staff, EMS transport, no interventions during transport, altered mental status, DNR code status. Patient with GCS 6 noted, DNR noted, seems to be maintaining airway, we will not intubate for airway protection for now given recorded DNR status, await arrival of POA. We will initiate workup for now, CT head noncontrast, chest x-ray, cath urine, labs. History of urinary tract infections noted. Lactate 2.2 mild elevation, IV fluid bolus. Cath urine pending, blood cultures requested. Empiric IV ceftriaxone after blood and urine collected. CT head to be performed. CT head noncontrast, no acute changes. See radiology report. White blood cell count, hemoglobin, electrolytes, glucose normal. Urinalysis still pending. Ethanol level negative. Serum ammonia level normal. Chest x-ray no acute changes. Urinalysis negative. 1300, case discussed with hospitalist Dr. Redd, we will request MAR from assisted living facility, consider drug interaction or medication effect. Advised to continue reaching POA for disposition discussion. MAR received from nursing facility. At the time of 0744 meds there was sertraline dispensed, ropinirole, entacapone, carbidopa levodopa, cetirizine. There are 2 entries for pregabalin 100 mg doses, both listed 0744. Perhaps double dosing of Lyrica was given that might account for altered mental status. Otherwise negative workup above. Consider further observation for metabolism of medications. Empiric antibiotic given after cultures in case of infection. Attempted to reach medical POA, listed as friend named Elmo Cheng, phone [phone]. We received busy signal when attempting to reach the medical power of trust and estates attorney. Will query hospitalist regarding admission. 1345, Case discussed with hospitalist Dr. Redd who accepts patient for admission to observation Discharge Plan Departure Patient Disposition: Admitted as Observation Clinical Impression: Altered mental status Admit Date/Time: 10/04/24 13:57 Admit Provider: Veena Redd
[2024-10-04 11:23] LABS: Add Manual Diff / Slide Review NO; Basophils Absolute Auto 0 /uL (0-100); Basophils Percent Auto 0.7 % (0-2); Eosinophils Absolute Auto 200 /uL (0-450); Eosinophils Percent Auto 3.6 % (2-4); Hematocrit 36.1 % (36-46); Hemoglobin 12.2 g/dL (12.0-16.0); Lymphocytes Absolute Auto 1200 /uL (1100-4500); Mean Corpuscular HGB Conc 33.7 % (30-36); Mean Corpuscular Hemoglobin 31.5 PG (26-34); Mean Corpuscular Volume 93.4 fL (80-100); Monocytes Absolute Auto 300 /uL (0-900); Monocytes Percent Auto 7.8 % (3-14); Neutrophils Absolute Auto 2600 /uL (1500-7000); Neutrophils Percent Auto 60.9 % (50-75); Platelet Count 208 X10^3/uL (150-400); Red Blood Cell Count 3.87 X10^6/uL (4.0-5.2); Red Cell Distribution Width 13.9 % (11.6-14.8); White Blood Cell Count 4.3 X10^3/uL (4.5-11.0)
[2024-10-04 11:25] LABS: Alanine Aminotransferase 7 IU/L (<35); Albumin Globulin Ratio 1.4 (1.0-2.8); Alkaline Phosphatase 81 U/L (38-126); Aspartate Aminotransferase 22 IU/L (14-36); BUN Creatinine Ratio 18.6 (6-22); Bilirubin Total 0.7 mg/dL (0.2-1.3); Blood Urea Nitrogen 11 mg/dL (7-17); Calcium 9.4 mg/dL (8.4-10.2); Carbon Dioxide 27 mmol/L (22-32); Chloride 110 mmol/L (98-107); Estimated Glomerular Filt Rate > 60 mL/min (>60); Ethanol (ETOH) < 10 mg/dL (<10); Globulin 2.8 g/dL (1.7-4.1); Glucose 103 mg/dL (70-99); HEMOLYSIS < 15 (0-50); Lactate (Lactic Acid) 0.7 mmol/L (0.7-2.1); Salicylate < 1.0 mg/dL (<20); Sodium 141 mmol/L (137-145); Total Protein 6.8 g/dL (6.3-8.2)
[2024-10-04 11:52] LABS: Ammonia (NH3) 17 umol/L (9-30)
--- NOTE | 2024-10-04 12:06 | DI.RAD.S_ITS ---
PROCEDURE: XR CHEST 1V INDICATIONS: alt MSE, eval for aspiration TECHNIQUE: One view of the chest was acquired. COMPARISON: [facility], CR, XR CHEST 1V, 05/17/2024, 10:20. [facility], CR, XR CHEST 1V, 04/05/2024, 17:16. FINDINGS: Surgical changes and devices: Left chest wall generator. Lungs and pleura: Lungs are clear. No pleural effusions or pneumothorax. Mediastinum: Mediastinal contours appear normal. Heart size is normal. Bones and chest wall: No suspicious bony lesions. Overlying soft tissues appear unremarkable. IMPRESSION: No acute cardiopulmonary abnormality is seen. Dictated by: Kentrell Francis M.D. on 10/04/2024 at 12:29 Approved by: Kentrell Francis M.D. on 10/04/2024 at 12:29
[2024-10-04] MEDS: cefTRIAXone 2,000 MG in SODIUM CHLORIDE 0.9% 100 ML 200 MG IV (12:12)
[2024-10-04 12:17] LABS: Appearance Urine UA CLEAR; Bilirubin Urine UA NEGATIVE (NEGATIVE); Color Urine UA YELLOW; Glucose Urine UA NEGATIVE (Negative); Ketones Urine UA NEGATIVE (NEGATIVE); Leukocyte Esterase Urine UA NEGATIVE (NEGATIVE); Nitrite Urine UA NEGATIVE (Negative); Occult Blood Urine UA NEGATIVE (Negative); Protein Urine UA NEGATIVE (Negative); Specific Gravity Urine UA <=1.005 (1.000-1.035); Urobilinogen Urine UA 0.2 E.U./dL (0.2)
[2024-10-04 12:23] LABS: Ur Creatinine Normal (Normal); Ur Specific Gravity Normal (Normal); Urine pH Normal (Normal)
[2024-10-04 12:24] LABS: Urine Amphetamines Negative (Negative); Urine Barbiturates Negative (Negative); Urine Benzodiazepines Negative (Negative); Urine Cocaine Negative (Negative); Urine MDMA Negative (Negative); Urine Methadone Negative (Negative); Urine Opiates Negative (Negative); Urine Oxycodone Negative (Negative); Urine Phencyclidine Negative (Negative); Urine THC Negative (Negative); Urine Tricyclic Antidepressant Negative (Negative)
[2024-10-04 12:48] LABS: Bacteria Urine None Seen; Culture Indicated Urine Cult Not Indicated; RBC Urine None Seen (0-5/HPF); Squamous Epithelial Cell Urine 0-1 /HPF (0-5/HPF); Urine Volume 10mL (spun); WBC Urine None Seen (0-5/HPF)
--- NOTE | 2024-10-04 13:49 | EKG_ITS ---
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
--- NOTE | 2024-10-04 14:00 | PC.NURSE ---
Addendum entered by Chris Villafana R.N. 10/04/24 14:04: This RN notified Dr. Suarez. Original Note: This RN walked in to reassess patient and called out patient name and patient responded. This RN asked patient to open their eyes and they followed commands. This RN asked patient name, date of and patient answered correctly. 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 Patient correctly identified location of [facility]. When asked date patient states September 04 instead of October 04.
--- NOTE | 2024-10-04 15:10 | PC.NURSE ---
This RN took patient upstairs with student RN. Student RN gave verbal report to Diaz Yin RN with this RN witnessing. This RN agrees with all charting from student RN and was present for all care that was provided.
--- NOTE | 2024-10-04 16:01 | PM.HP.1 ---
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 She was a resident at [facility] at the end of last year. She was subsequently admitted to the hospital with an ESBL E coli UTI. During a prior hospitalization, she was noted to have altered mental status. It was discovered that her DBS had not been charged for several weeks. Once the DBS was charge, her mental status significantly improved. She discharged from the hospital and went to [facility]. She discharge from [facility] to [facility] in the last several weeks. She reports that yesterday she was having an exacerbation of acute genital pain syndrome. She took an extra dose of baclofen. She states this morning when staff came to give her her morning medications, she did not feel quite right. The staff asked her if she felt she could take her meds and although she reported she did not feel she could, she states they gave her her medications anyway. She received her morning medications at 7:44 a.m.. Evidently, both her POA and staff at the facility noted a bit later in the morning that she had altered mental status. She was subsequently transported to the emergency department for further evaluation. In the emergency department, she underwent evaluation with labs, head CT, and chest x-ray. UA was also performed. None of those were revealing. The Mar from [facility] was subsequently obtained. It appears that she has been receiving 2 doses each morning of pregabalin 100 mg. When she saw Urology on August 29, her dose was 50 mg twice daily. The dose was reportedly the same at her follow-up visit on September 15. She states last night she noticed some abnormality with her right hand. She would difficulty gripping a hand rail as well as noticed trouble writing. This is unusual for her. She was not certain what to think about it but attributed it to her Parkinson's disease. Currently, patient states she is feeling better than she was this morning. She is able to tell me she has in fact been charging her deep brain stimulator every day. She is able to tell me that she was quite unclear this morning. Currently, she does feel more sleepy and energetic than baseline. She denies any localizing symptoms. [facility] Medical History (Updated 10/04/24 @ 15:51 by America Giordano RN) Unspecified dementia, unspecified severity, without behavioral disturbance, psychotic disturbance, mood disturbance, and anxiety Restless leg syndrome Vitamin B12 deficiency Parkinson's disease with dyskinesia and fluctuating manifestations Other specified disorders of urinary system Lack of coordination Muscle weakness (generalized) Insomnia, unspecified Extended spectrum beta lactamase (ESBL) resistance Diarrhea, unspecified Calculus of kidney Uterovaginal prolapse, unspecified Unspecified osteoarthritis, unspecified site Stress fracture Post-menopausal atrophic vaginitis Pelvic and perineal pain Overactive bladder Anxiety disorder Malignant neoplasm of breast Hypotension, unspecified Major depressive disorder, recurrent Cognitive communication deficit Asthma Parkinson's disease Social History household members: none Smoking Status: Former smoker alcohol intake: never Meds Home Medications and Allergies Home Medications Medication Instructions Recorded Confirmed Type carbidopa ER 25 mg-levodopa 100 mg 2 tab PO QID 12/31/23 09/15/24 History tablet,extended release cholecalciferol (vitamin D3) 25 25 mcg PO DAILY 02/14/24 09/15/24 History mcg (1,000 unit) capsule flaxseed oil 1,000 mg capsule 1,000 mg PO DAILY 02/14/24 09/15/24 History melatonin 5 mg capsule 5 mg PO BEDTIME 02/14/24 09/15/24 History omega-3 fatty acids 1,000 mg 1,000 mg PO DAILY 02/14/24 09/15/24 History capsule acetaminophen 650 mg 650 mg PO Q8H PRN fever or pain 04/29/24 09/15/24 Rx tablet,extended release (Tylenol 8 #20 tabs Hour) ibuprofen 400 mg tablet 400 mg PO Q8H PRN pain #20 tabs 04/29/24 09/15/24 Rx carbidopa ER 50 mg-levodopa 200 mg 1 tab PO BEDTIME 05/11/24 09/15/24 History tablet,extended release cetirizine 10 mg tablet 10 mg PO DAILY Allergies 05/11/24 09/15/24 History cranberry extract 250 mg tablet 250 mg PO DAILY 05/11/24 09/15/24 History donepezil 10 mg tablet 10 mg PO DAILY 05/11/24 09/15/24 History entacapone 200 mg tablet 100 mg PO QID Parkinson's 05/11/24 09/15/24 History omeprazole magnesium 20 mg 20 mg PO BID 05/11/24 09/15/24 History tablet,delayed release (Prilosec OTC) sertraline 100 mg tablet 100 mg PO DAILY Depression 05/11/24 09/15/24 History clonazepam 1 mg disintegrating 1 mg PO BID PRN Anxiety or spasm 05/14/24 09/15/24 Rx tablet #14 tabs ascorbate calcium (vitamin C) 500 1 g PO Q6H 08/29/24 09/15/24 History mg tablet baclofen 10 mg tablet 10 mg PO BEDTIME 08/29/24 09/15/24 History cranberry fruit concentrate 250 mg 250 mg PO TID PRN 08/29/24 09/15/24 History chewable tablet (Azo Cranberry) d-mannose 500 mg capsule mg PO 08/29/24 09/15/24 History mecobalamin (vitamin B12) 500 mcg mcg PO 08/29/24 08/29/24 History chewable tablet ondansetron 4 mg disintegrating 4 mg PO Q8H PRN 08/29/24 09/15/24 History tablet pregabalin 50 mg capsule 50 mg PO BID 08/29/24 09/15/24 History psyllium husk 3.4 gram/5.4 gram 1 tbsp PO BID 08/29/24 09/15/24 History oral powder (Metamucil) ropinirole 1 mg tablet 1 mg PO DAILY 08/29/24 09/15/24 History pregabalin 100 mg capsule 100 mg PO DAILY 09/15/24 09/15/24 History ropinirole 1 mg tablet 1 mg PO DAILY 09/15/24 09/15/24 History Allergies Allergy/AdvReac Type Severity Reaction Status Date / Time Penicillins Allergy Intermediate Hives Verified 09/15/24 09:58 corn Allergy Unknown Verified 09/15/24 09:58 Sulfa (Sulfonamide Allergy Verified 09/15/24 09:58 Antibiotics) Review of Systems Review of Systems Narrative: All other systems were reviewed negative Exam Vital Signs (past 8 hours): - 10/04/24 10:59 10/04/24 11:00 10/04/24 11:01 Temperature 98.2 F Pulse Rate 66 66 64 Respiratory Rate 16 23 12 Blood Pressure 124/60 Pulse Oximetry 94 94 93 Oxygen Delivery Method Room Air 10/04/24 11:01 10/04/24 11:01 10/04/24 11:10 Temperature Pulse Rate 66 Respiratory Rate 21 Blood Pressure 124/60 123/57 L Pulse Oximetry 94 Oxygen Delivery Method 10/04/24 11:10 10/04/24 11:15 10/04/24 11:15 Temperature Pulse Rate 63 65 Respiratory Rate 18 23 Blood Pressure 124/61 Pulse Oximetry 93 93 Oxygen Delivery Method 10/04/24 11:20 10/04/24 11:20 10/04/24 11:25 Temperature Pulse Rate 65 Respiratory Rate 27 H Blood Pressure 127/60 125/60 Pulse Oximetry 93 Oxygen Delivery Method 10/04/24 11:25 10/04/24 11:30 10/04/24 12:00 Temperature Pulse Rate 64 62 66 Respiratory Rate 16 Blood Pressure Pulse Oximetry 94 94 95 Oxygen Delivery Method 10/04/24 12:09 10/04/24 12:09 10/04/24 12:10 Temperature 98.4 F Pulse Rate 62 Respiratory Rate 12 Blood Pressure 125/60 121/59 L Pulse Oximetry 95 Oxygen Delivery Method Room Air 10/04/24 12:10 10/04/24 12:15 10/04/24 12:15 Temperature 98.4 F 98.6 F Pulse Rate 62 64 Respiratory Rate Blood Pressure 120/58 L Pulse Oximetry 94 94 Oxygen Delivery Method 10/04/24 12:20 10/04/24 12:20 10/04/24 12:25 Temperature 98.6 F Pulse Rate 60 Respiratory Rate Blood Pressure 112/57 L 114/56 L Pulse Oximetry 93 Oxygen Delivery Method 10/04/24 12:25 10/04/24 12:30 10/04/24 12:30 Temperature 98.6 F 98.4 F Pulse Rate 58 L 57 L Respiratory Rate Blood Pressure 118/56 L Pulse Oximetry 94 95 Oxygen Delivery Method 10/04/24 12:35 10/04/24 12:35 10/04/24 12:40 Temperature 98.4 F Pulse Rate 57 L Respiratory Rate Blood Pressure 119/59 L 123/60 Pulse Oximetry 95 Oxygen Delivery Method 10/04/24 12:40 10/04/24 12:45 10/04/24 12:45 Temperature 98.4 F 98.4 F Pulse Rate 60 58 L Respiratory Rate Blood Pressure 112/57 L Pulse Oximetry 95 95 Oxygen Delivery Method 10/04/24 12:50 10/04/24 12:50 10/04/24 12:55 Temperature 98.4 F 98.4 F Pulse Rate 59 L 57 L Respiratory Rate Blood Pressure 117/59 L Pulse Oximetry 94 95 Oxygen Delivery Method 10/04/24 12:55 10/04/24 13:00 10/04/24 13:00 Temperature 98.4 F Pulse Rate 56 L Respiratory Rate Blood Pressure 113/58 L 105/56 L Pulse Oximetry 94 Oxygen Delivery Method 10/04/24 13:05 10/04/24 13:05 10/04/24 13:10 Temperature 98.4 F Pulse Rate 58 L Respiratory Rate Blood Pressure 118/59 L 118/59 L Pulse Oximetry 95 Oxygen Delivery Method 10/04/24 13:10 10/04/24 13:15 10/04/24 13:15 Temperature 98.4 F 98.4 F Pulse Rate 58 L 57 L Respiratory Rate Blood Pressure 109/54 L Pulse Oximetry 94 94 Oxygen Delivery Method 10/04/24 13:20 10/04/24 13:20 10/04/24 13:25 Temperature 98.4 F Pulse Rate 59 L Respiratory Rate Blood Pressure 119/59 L 124/55 L Pulse Oximetry 95 Oxygen Delivery Method 10/04/24 13:25 10/04/24 13:30 10/04/24 13:30 Temperature 98.4 F 98.4 F Pulse Rate 58 L 57 L Respiratory Rate 25 H Blood Pressure 117/56 L Pulse Oximetry 94 94 Oxygen Delivery Method 10/04/24 13:35 10/04/24 13:35 10/04/24 13:40 Temperature 98.4 F Pulse Rate 57 L Respiratory Rate Blood Pressure 121/59 L 119/58 L Pulse Oximetry 95 Oxygen Delivery Method 10/04/24 13:40 10/04/24 13:45 10/04/24 13:45 Temperature 98.4 F 98.4 F Pulse Rate 58 L 59 L Respiratory Rate 23 Blood Pressure 119/55 L Pulse Oximetry 94 95 Oxygen Delivery Method 10/04/24 13:50 10/04/24 13:50 10/04/24 13:55 Temperature 98.4 F Pulse Rate 61 Respiratory Rate Blood Pressure 127/61 116/56 L Pulse Oximetry 94 Oxygen Delivery Method 10/04/24 13:55 10/04/24 14:00 10/04/24 14:00 Temperature 98.2 F 98.4 F Pulse Rate 56 L 65 Respiratory Rate 20 Blood Pressure 120/58 L Pulse Oximetry 94 94 Oxygen Delivery Method 10/04/24 14:05 10/04/24 14:05 10/04/24 14:10 Temperature 98.4 F 98.2 F Pulse Rate 61 62 Respiratory Rate 26 H Blood Pressure 122/60 Pulse Oximetry 94 94 Oxygen Delivery Method 10/04/24 14:10 10/04/24 14:15 10/04/24 14:15 Temperature 98.2 F Pulse Rate 60 Respiratory Rate 25 H Blood Pressure 127/60 121/58 L Pulse Oximetry 94 Oxygen Delivery Method 10/04/24 14:20 10/04/24 14:20 10/04/24 14:25 Temperature 98.2 F 98.2 F Pulse Rate 56 L 57 L Respiratory Rate Blood Pressure 119/58 L Pulse Oximetry 95 94 Oxygen Delivery Method 10/04/24 14:25 10/04/24 14:30 10/04/24 14:30 Temperature 98.2 F Pulse Rate 65 Respiratory Rate Blood Pressure 120/59 L 124/59 L Pulse Oximetry 94 Oxygen Delivery Method 10/04/24 14:35 10/04/24 14:35 10/04/24 14:41 Temperature 98.2 F Pulse Rate 61 Respiratory Rate Blood Pressure 126/55 L 167/131 H Pulse Oximetry 94 Oxygen Delivery Method 10/04/24 14:41 10/04/24 14:43 10/04/24 14:44 Temperature 98.2 F 98.2 F Pulse Rate 67 68 Respiratory Rate 23 Blood Pressure 121/58 L Pulse Oximetry 94 95 Oxygen Delivery Method Oxygen Delivery Method Room Air Narrative Exam Narrative: GEN: Elderly female, Alert and oriented x3, no acute distress HEENT: Normocephalic, face symmetric, pupils equal round reactive to light, extraocular movements intact, sclerae anicteric, conjunctiva clear, nares patent, oropharynx reveals an intact soft and hard palate with very dry mucous membranes, dentition is fair NECK: Supple, no lymphadenopathy, thyroid without enlargement or nodularity, carotids no bruits CHEST: Respiratory excursions symmetric, clear to auscultation bilaterally CV: Regular rate and rhythm, no murmurs, rubs, gallops, PMI nondisplaced ABD: Soft, nontender, nondistended, bowel sounds present in all 4 quadrants, no organomegaly or masses appreciated EXTR: Warm, well perfused, no clubbing/cyanosis/edema SKIN: Warm and dry, without rash NEURO: Alert and oriented x3, very flat affect PSYCH: Mood and affect is within normal limits, judgment and insight are appropriate Objective Labs 10/04/24 11:00 10/04/24 11:00 Labs: Laboratory Results - last 24 hr 10/04/24 10/04/24 10/04/24 11:00 11:32 12:05 WBC 4.3 L RBC 3.87 L Hgb 12.2 Hct 36.1 MCV 93.4 MCH 31.5 MCHC 33.7 RDW 13.9 Plt Count 208 Neut % (Auto) 60.9 Lymph % (Auto) 27.0 Benzie % (Auto) 7.8 Eos % (Auto) 3.6 Baso % (Auto) 0.7 Neut # (Auto) 2600 Lymph # (Auto) 1200 Benzie # (Auto) 300 Eos # (Auto) 200 Baso # (Auto) 0 PT 11.4 INR 1.0 Sodium 141 Potassium 4.0 Chloride 110 H Carbon Dioxide 27 BUN 11 Creatinine 0.59 Estimated GFR > 60 BUN/Creatinine Ratio 18.6 Glucose 103 H Lactate 0.7 Calcium 9.4 Total Bilirubin 0.7 AST 22 ALT 7 Alkaline Phosphatase 81 Ammonia 17 Total Protein 6.8 Albumin 4.0 Globulin 2.8 Albumin/Globulin Ratio 1.4 Urine Color Yellow Urine Appearance Clear Urine pH 6.0 Ur Specific [place] <=1.005 Urine Protein Negative Urine Glucose (UA) Negative Urine Ketones Negative Urine Occult Blood Negative Urine Nitrate Negative Urine Bilirubin Negative Urine Urobilinogen 0.2 Ur Leukocyte Esterase Negative Urine RBC None seen Urine WBC None seen Ur Squamous Epith Cells 0-1 /hpf Urine Bacteria None seen Ur Culture Indicated? Cult not indicated Vol Urine Centrifuged 10ml (spun) Salicylates < 1.0 U Opiates 300ng/mL cut Negative Ur Oxycodone Screen Negative Urine Methadone Screen Negative Ur Barbiturates Screen Negative U Tricyclic Antidepress Negative Ur Phencyclidine Scrn Negative Ur Amphetamines Screen Negative U Methamphetamines Scrn Negative Ur MDMA Scrn (Ecstasy) Negative U Benzodiazepines Scrn Negative Urine Cocaine Screen Negative U Marijuana (THC) Screen Negative Urine Specific [place] Ethyl Alcohol < 10 Ur Creatinine 10/04/24 12:05 WBC RBC Hgb Hct MCV MCH MCHC RDW Plt Count Neut % (Auto) Lymph % (Auto) Benzie % (Auto) Eos % (Auto) Baso % (Auto) Neut # (Auto) Lymph # (Auto) Benzie # (Auto) Eos # (Auto) Baso # (Auto) PT INR Sodium Potassium Chloride Carbon Dioxide BUN Creatinine Estimated GFR BUN/Creatinine Ratio Glucose Lactate Calcium Total Bilirubin AST ALT Alkaline Phosphatase Ammonia Total Protein Albumin Globulin Albumin/Globulin Ratio Urine Color Urine Appearance Urine pH Normal Ur Specific [place] Urine Protein Urine Glucose (UA) Urine Ketones Urine Occult Blood Urine Nitrate Urine Bilirubin Urine Urobilinogen Ur Leukocyte Esterase Urine RBC Urine WBC Ur Squamous Epith Cells Urine Bacteria Ur Culture Indicated? Vol Urine Centrifuged Salicylates U Opiates 300ng/mL cut Ur Oxycodone Screen Urine Methadone Screen Ur Barbiturates Screen U Tricyclic Antidepress Ur Phencyclidine Scrn Ur Amphetamines Screen U Methamphetamines Scrn Ur MDMA Scrn (Ecstasy) U Benzodiazepines Scrn Urine Cocaine Screen U Marijuana (THC) Screen Urine Specific [place] Normal Ethyl Alcohol Ur Creatinine Normal Assessment & Plan Assessment & Plan narrative: 1. Acute toxic encephalopathy Patient presented with altered mental status, likely secondary to receiving double doses of pregabalin at her facility. Suspect this is secondary to errors in medication reconciliation when she left [facility] and admitted to [facility]. Rather than receiving 100 mg of pregabalin in the morning, she has been receiving 200 mg. It is not entirely clear what her current dose is supposed to be as previously it was noted to be 50 mg twice daily according to outpatient urology records. That, in conjunction with the extra dose of baclofen very likely led to the encephalopathy that was observed this morning as well as her right hand clumsiness she noted last evening. She is already showing signs of improvement. I anticipate an overnight observation stay with possible discharge tomorrow. 2. Parkinson's disease Plan to ensure her DBS has been charge in his working properly. Await medication reconciliation and plan to resume her usual entacapone and carbidopa levodopa. Plan to hold her ropinirole, pregabalin, and clonazepam 3. History of ESBL E coli UTI Urine is unremarkable today. Plan to resume her usual cranberry extract, azo, and demand us once meds have been reconciled 4. Depression Resume sertraline once medications have been reconciled Code status DNR Prophylaxis Low Nasim score Disposition Anticipate discharge back to [facility] tomorrow. Time-Based Coding :: [TOTAL MINUTES] spent with patient and on the chart (including review of chart, obtaining history, exam, reviewing outside data, placing orders, documenting exam and treatment plan, and counseling patient) on [DATE].
[2024-10-04] MEDS: SODIUM CHLORIDE 0.9% 1,000 ML 100 ML IV (16:30)
[2024-10-04] MEDS: ACETAMINOPHEN 325 MG TABLET 650 MG PO (21:18)
[2024-10-04] MEDS: IBUPROFEN 400 MG TABLET PO (22:47)
[2024-10-05 06:04] LABS: Add Manual Diff / Slide Review NO; Basophils Absolute Auto 0 /uL (0-100); Basophils Percent Auto 0.7 % (0-2); Eosinophils Absolute Auto 100 /uL (0-450); Eosinophils Percent Auto 2.1 % (2-4); Hematocrit 37.7 % (36-46); Hemoglobin 12.6 g/dL (12.0-16.0); Lymphocytes Absolute Auto 1600 /uL (1100-4500); Lymphocytes Percent Auto 27.2 % (25-40); Mean Corpuscular HGB Conc 33.4 % (30-36); Mean Corpuscular Hemoglobin 31.1 PG (26-34); Mean Corpuscular Volume 93.2 fL (80-100); Monocytes Absolute Auto 500 /uL (0-900); Monocytes Percent Auto 8.1 % (3-14); Neutrophils Absolute Auto 3700 /uL (1500-7000); Neutrophils Percent Auto 61.9 % (50-75); Platelet Count 204 X10^3/uL (150-400); Red Blood Cell Count 4.05 X10^6/uL (4.0-5.2); Red Cell Distribution Width 13.9 % (11.6-14.8)
[2024-10-05 06:15] LABS: BUN Creatinine Ratio 24.6 (6-22); Blood Urea Nitrogen 15 mg/dL (7-17); Calcium 9.1 mg/dL (8.4-10.2); Carbon Dioxide 24 mmol/L (22-32); Chloride 111 mmol/L (98-107); Estimated Glomerular Filt Rate > 60 mL/min (>60); Glucose 100 mg/dL (70-99); HEMOLYSIS < 15 (0-50); Sodium 140 mmol/L (137-145)
[2024-10-05] MEDS: CARBIDOPA-LEVODOPA 25/100 TABLET 2 EACH PO ×3 (06:46→13:09)
[2024-10-05] MEDS: ENTACAPONE 200 MG TABLET 100 MG PO ×2 (06:47→13:09)
[2024-10-05 09:00] VITALS: BP 130/61; PULSE 82; RESP 16; TEMP 36.9; O2SAT 92
[2024-10-05] MEDS: SERTRALINE 50 MG TABLET 100 MG PO (09:18)
[2024-10-05] MEDS: PANTOPRAZOLE DR 20 MG TABLET PO (09:18)
[2024-10-05] MEDS: DONEPEZIL 5 MG TABLET 10 MG PO (09:18)
[2024-10-05] MEDS: ROPINIROLE 1 MG TABLET PO (09:18)
--- NOTE | 2024-10-05 13:41 | PM.DS.1 ---
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 She was a resident at [facility] at the end of last year. She was subsequently admitted to the hospital with an ESBL E coli UTI. During a prior hospitalization, she was noted to have altered mental status. It was discovered that her DBS had not been charged for several weeks. Once the DBS was charge, her mental status significantly improved. She discharged from the hospital and went to [facility]. She discharge from [facility] to [facility] in the last several weeks. She reports that yesterday she was having an exacerbation of acute genital pain syndrome. She took an extra dose of baclofen. She states this morning when staff came to give her her morning medications, she did not feel quite right. The staff asked her if she felt she could take her meds and although she reported she did not feel she could, she states they gave her her medications anyway. She received her morning medications at 7:44 a.m.. Evidently, both her POA and staff at the facility noted a bit later in the morning that she had altered mental status. She was subsequently transported to the emergency department for further evaluation. In the emergency department, she underwent evaluation with labs, head CT, and chest x-ray. UA was also performed. None of those were revealing. The Mar from [facility] was subsequently obtained. It appears that she has been receiving 2 doses each morning of pregabalin 100 mg. When she saw Urology on August 29, her dose was 50 mg twice daily. The dose was reportedly the same at her follow-up visit on September 15. She states last night she noticed some abnormality with her right hand. She would difficulty gripping a hand rail as well as noticed trouble writing. This is unusual for her. She was not certain what to think about it but attributed it to her Parkinson's disease. Currently, patient states she is feeling better than she was this morning. She is able to tell me she has in fact been charging her deep brain stimulator every day. She is able to tell me that she was quite unclear this morning. Currently, she does feel more sleepy and energetic than baseline. She denies any localizing symptoms. Discharge Providers Provider Date of admission: 10/04/24 13:57 Discharge Date: 10/05/24 Primary care physician: Doctor Barb MD Consults: 10/04/24 14:04 Consult to Discharge Planning Routine Comment: Likely dc back to [facility] tomorrow Discharge provider: Veena Redd MD Summary Hospital Course Discharge Diagnosis: 1. Acute toxic encephalopathy, resolved 2. Parkinson's disease, stable 3. History of ESBL E coli UTI, negative UA this admission 4. Depression Hospital Course: Patient recently moved from [facility] to [facility]. During that transition, her medications were changed in terms of dosing times. On the date of admission, she presented to the emergency department with encephalopathy. Upon review of her Mar, it appears she had been receiving pregabalin 100 mg capsules, 2 doses each morning. While at [facility], those doses were being given at 8:00 a.m. and 1:00 p.m.. She also receives an evening dose of 150 mg. The night before admission she would also requested a as needed dose of baclofen. It was felt after workup for possible infection or stroke, which were all negative, that the likely etiology of her altered mental status was medication related. Upon reviewing her [facility] medication administration report and comparing it with her [facility] medication administration report, the differences in timing of her pregabalin became clear. Once the pregabalin dosing was changed, her mental status returned to baseline. At the time of discharge, her pregabalin doses being changed back to 100 mg at 8:00 a.m., 100 mg at 1:00 p.m., and 150 mg at bedtime. She is being discharged back to [facility] at her usual baseline mental status and is in stable condition. Status at Discharge Cognitive/behavioral status at discharge: at baseline, oriented Functional status at discharge: uses cane/walker Overall status at discharge: patient is back to baseline Time Spent with Patient Time spent: Less than 30 minutes Exam Vital Signs (past 8 hours): - 10/05/24 09:00 Temperature 98.4 F Pulse Rate 82 Respiratory Rate 16 Blood Pressure 130/61 Pulse Oximetry 92 Oxygen Flow Rate 0 Oxygen Delivery Method Room Air Oxygen Flow Rate 0 Narrative Exam Narrative: GEN: Elderly female, Alert and oriented x3, no acute distress HEENT: Normocephalic, face symmetric CHEST: Respiratory excursions symmetric, clear to auscultation bilaterally CV: Regular rate and rhythm, no murmurs, rubs, gallops, PMI nondisplaced ABD: Soft, nontender, nondistended, bowel sounds present in all 4 quadrants, no organomegaly or masses appreciated EXTR: Warm, well perfused, no clubbing/cyanosis/edema SKIN: Warm and dry, without rash NEURO: Alert and oriented x3, very flat affect Objective Labs 10/05/24 05:40 10/05/24 05:40 Labs: Laboratory Results - last 24 hr 10/05/24 05:40 WBC 6.0 RBC 4.05 Hgb 12.6 Hct 37.7 MCV 93.2 MCH 31.1 MCHC 33.4 RDW 13.9 Plt Count 204 Neut % (Auto) 61.9 Lymph % (Auto) 27.2 [place] % (Auto) 8.1 Eos % (Auto) 2.1 Baso % (Auto) 0.7 Neut # (Auto) 3700 Lymph # (Auto) 1600 [place] # (Auto) 500 Eos # (Auto) 100 Baso # (Auto) 0 Sodium 140 Potassium 4.0 Chloride 111 H Carbon Dioxide 24 BUN 15 Creatinine 0.61 Estimated GFR > 60 BUN/Creatinine Ratio 24.6 H Glucose 100 H Calcium 9.1 PFSH Medical History (Updated 10/04/24 @ 15:51 by America Giordano RN) Unspecified dementia, unspecified severity, without behavioral disturbance, psychotic disturbance, mood disturbance, and anxiety Restless leg syndrome Vitamin B12 deficiency Parkinson's disease with dyskinesia and fluctuating manifestations Other specified disorders of urinary system Lack of coordination Muscle weakness (generalized) Insomnia, unspecified Extended spectrum beta lactamase (ESBL) resistance Diarrhea, unspecified Calculus of kidney Uterovaginal prolapse, unspecified Unspecified osteoarthritis, unspecified site Stress fracture Post-menopausal atrophic vaginitis Pelvic and perineal pain Overactive bladder Anxiety disorder Malignant neoplasm of breast Hypotension, unspecified Major depressive disorder, recurrent Cognitive communication deficit Asthma Parkinson's disease Social History household members: none Smoking Status: Former smoker alcohol intake: never Discharge Plan Discharge Plan [facility] Facility vehicle Provider Discharge Comment: You were admitted w/acute toxic encephalopathy (altered mental status). The cause was likely medication dosing times that changed in your move from [facility] to [facility]. While at [facility], you were receiving pregabalin 100 mg at 8am, 100 mg at 1pm and 150 mg at bedtime. At [facility], you were receiving 200 mg in the morning and 150 mg at bedtime. This change, along with the extra baclofen you took on the day before admission, likely led to your altered mental state. You will be resuming your previous schedule of pregabalin, which will be dosed at 8am, 1pm and bedtime. While hospitalized, you were evaluated for infection, stroke and electrolyte problems, all of which were negative. Please remember to charge your deep brain stimulator on a regular basis. Discharge orders & Medications Discharge Orders: Discharge (Order); Ordered 10/05/24 Ordered By: Veena Redd Prescriptions: New pregabalin 100 mg capsule 100 mg PO DIRECTED Qty: 60 0RF Rx Instructions: Take at 8am and 1300 Continued carbidopa-levodopa 25-100 mg tablet extended release 2 tab PO QID Rx Instructions: give 2 tablets four times a day: 0700, 1000, 1300, 1600 donepezil 10 mg tablet 10 mg PO DAILY carbidopa-levodopa 50-200 mg tablet extended release 1 tab PO BEDTIME sertraline 100 mg tablet 100 mg PO DAILY cetirizine 10 mg tablet 10 mg PO DAILY entacapone 200 mg tablet 100 mg PO QID Rx Instructions: give 0.5 tablet by mouth four times a day for Parkinson's omeprazole magnesium [Prilosec OTC] 20 mg Tablet,Delayed Release (Dr/Ec) 20 mg PO BID cranberry extract 250 mg Tablet 250 mg PO DAILY clonazepam 1 mg Tablet,Disintegrating 1 mg PO BID PRN (Reason: Anxiety or spasm) Qty: 14 0RF acetaminophen [Tylenol 8 Hour] 650 mg tablet extended release 650 mg PO Q8H PRN (Reason: fever or pain) Qty: 20 0RF ibuprofen 400 mg tablet 400 mg PO Q8H PRN (Reason: pain) Qty: 20 0RF clonazepam 1 mg Tablet 1 mg PO BEDTIME Rx Instructions: administer 30 minutes before bedtime baclofen 10 mg Tablet 10 mg PO BEDTIME pregabalin 150 mg Capsule 150 mg PO BEDTIME mecobalamin (vitamin B12) 500 mcg tablet,chewable 500 mcg PO d-mannose 500 mg capsule 500 mg PO ondansetron 4 mg tablet,disintegrating 4 mg PO Q8H PRN (Reason: Nausea And Vomiting) Azo Cranberry 250 mg tablet,chewable 250 mg PO DAILY baclofen 10 mg tablet 10 mg PO Q8HR PRN (Reason: Muscle Spasticity) ascorbate calcium (vitamin C) 500 mg tablet 1 g PO BID omega-3 fatty acids 1,000 mg capsule 1,000 mg PO DAILY cholecalciferol (vitamin D3) 25 mcg (1,000 unit) capsule 25 mcg PO DAILY melatonin 5 mg capsule 5 mg PO BEDTIME ropinirole 1 mg tablet 1 mg PO DAILY Discontinued pregabalin 100 mg capsule 100 mg PO DAILY Follow up/Referrals: BarbDoctor, [Primary Care Provider] - Diet/Activity/Treatments Diet: Diet as Tolerated and Regular Liquid consistency: Normal/Thin Food texture: Regular Activity: As tolerated Catheter comment: DC almanzar catheter prior to discharge Oxygen: N/A Visit Report/Discharge Packet Stand Alone Forms: Patient Portal/API, Stroke Signs & Symptoms Discharge Data Primary Care Provider: Doctor Barb Attending Provider: Veena Redd Admit Date/Time: 10/04/24 13:57
--- NOTE | 2024-10-05 14:46 | CM.DANOTE ---
DCP Assessment note [employer] attempted to complete normal PCS worklist for DCP assessment- Screenz error pop up stating not able to compile data to save documentation. Please reference just note for DCP Assessment/PCS worklist information Pt is a 73yo F admitted with AMS, likely from medication mismanagement after dosing/times were changed after moving to different facilities over past few months. Per provider/chart, pt was living at [facility] a few months ago, was admitted here at May 2024, discharged from here to , was at from then until September 10 2024, then moved to [facility]. at some point in that transition pt's Lyrcia med dosing was altered in timing/dosing. per provider, pt much improved today and cleared to dc back to [facility] tody with new med list. [employer] spoke with Fernando/Kat at [facility], confirmed can take pt back today, someone will come pick pt up around [address]. [employer] placed new signed med list/dc summary in pt's chart. updated RN/TECHNICAL AID. [employer] met with pt in room. updated on plan. is in agreement to dc to [facility] today. denies other questions/needs. P: return to [facility] today at 1500. CM team will continue to follow as needed NAYA Sena
== END 2024-10-05 15:15 ==
LOC: ED 13:53 → AC 13:58
PROVIDERS: Admitting Provider Family Medicine; Emergency Provider Emergency Medicine; Referring Provider Emergency Medicine; Visit Provider Family Medicine
DX: G92.9 Unspecified toxic encephalopathy (principal); G20.A1 Parkinson's disease without dyskinesia, without mention of fluctuations; F32.A Depression, unspecified; Z87.440 Personal history of urinary (tract) infections; Z66 Do not resuscitate; Z87.891 Personal history of nicotine dependence
CPT/HCPCS: 36415; 70450; 71045; 80048; 80053; 80305; 80320; 80329; 81001; 82140; 82962; 83605; 85025; 85610; 87040; 87086; 93005; 96361; 96365; 99284; G0378; G0480; J0696

== ENCOUNTER → 2025-01-21 21:05 | Outpatient (ROUT) | payer MEDICARE, MEDICAID, SELFPAY ==
[2024-10-04 15:12] VITALS: BMI 20.9
[2025-01-21 21:12] LABS: Appearance Urine UA CLEAR; Bilirubin Urine UA NEGATIVE (NEGATIVE); Color Urine UA YELLOW; Glucose Urine UA NEGATIVE (Negative); Ketones Urine UA NEGATIVE (NEGATIVE); Leukocyte Esterase Urine UA NEGATIVE (NEGATIVE); Nitrite Urine UA NEGATIVE (Negative); Occult Blood Urine UA NEGATIVE (Negative); Protein Urine UA NEGATIVE (Negative); Specific Gravity Urine UA 1.020 (1.000-1.035); Urobilinogen Urine UA 0.2 E.U./dL (0.2)
[2025-01-21 21:16] LABS: pH Urine UA 6.0 (4.5-8.0)
[2025-01-21 21:18] LABS: Culture Indicated Urine Cult Not Indicated
== END ==
PROVIDERS: Visit Provider Registered Nurse
DX: N39.0 Urinary tract infection, site not specified (principal)
CPT/HCPCS: 81001

== ENCOUNTER 2025-02-05 18:46 | Emergency (ER) | payer MEDICARE, MEDICAID, SELFPAY ==
[2024-10-04 15:12] VITALS: BMI 20.9
[2025-02-05] VITALS (10 sets, daily range): BP systolic 118–197; BP diastolic 60–79; PULSE 60–82; RESP 13–25; TEMP 36.8; O2SAT 94–98; BMI 23.3
--- NOTE | 2025-02-05 18:54 | ED.FEMALEGU ---
HPI - Female Genitourinary General Chief complaint: Abdominal Pain Stated complaint: Rectal prolapse,constipation Time Seen by Provider: 02/05/25 18:47 History of Present Illness HPI Narrative: 74-year-old female history of Parkinson's disease, lives at [facility] DNR code status was in the bathroom when she on was straining to have a bowel movement and stated the stools were coming out sideways having a hard time coming off the commode and feeling weak brought in via EMS for further evaluation. Staff concern possible rectal prolapse called EMS for transport. Patient denies headache, dizziness, blurred vision, chest pain, shortness of breath, nausea, vomiting, diarrhea, cough, runny nose, sore throat. Other than what is stated 14 point of systems negative. Related Data Home Medications ?Medication ?Instructions ?Recorded ?Confirmed carbidopa ER 25 mg-levodopa 100 mg 2 tab PO QID 12/31/23 10/04/24 tablet,extended release cholecalciferol (vitamin D3) 25 25 mcg PO DAILY 02/14/24 10/04/24 mcg (1,000 unit) capsule melatonin 5 mg capsule 5 mg PO BEDTIME 02/14/24 10/04/24 omega-3 fatty acids 1,000 mg 1,000 mg PO DAILY 02/14/24 10/04/24 capsule carbidopa ER 50 mg-levodopa 200 mg 1 tab PO BEDTIME 05/11/24 10/04/24 tablet,extended release cetirizine 10 mg tablet 10 mg PO DAILY Allergies 05/11/24 10/04/24 cranberry extract 250 mg tablet 250 mg PO DAILY 05/11/24 10/04/24 donepezil 10 mg tablet 10 mg PO DAILY 05/11/24 10/04/24 entacapone 200 mg tablet 100 mg PO QID Parkinson's 05/11/24 10/04/24 omeprazole magnesium 20 mg 20 mg PO BID 05/11/24 10/04/24 tablet,delayed release (Prilosec OTC) sertraline 100 mg tablet 100 mg PO DAILY Depression 05/11/24 10/04/24 ascorbate calcium (vitamin C) 500 1 g PO BID 08/29/24 10/04/24 mg tablet baclofen 10 mg tablet 10 mg PO Q8HR PRN Muscle Spasticity 08/29/24 10/04/24 cranberry fruit concentrate 250 mg 250 mg PO DAILY 08/29/24 10/04/24 chewable tablet (Azo Cranberry) d-mannose 500 mg capsule 500 mg PO 08/29/24 09/15/24 mecobalamin (vitamin B12) 500 mcg 500 mcg PO 08/29/24 08/29/24 chewable tablet ondansetron 4 mg disintegrating 4 mg PO Q8H PRN Nausea And Vomiting 08/29/24 10/04/24 tablet ropinirole 1 mg tablet 1 mg PO DAILY 09/15/24 10/04/24 baclofen 10 mg tablet 10 mg PO BEDTIME 10/04/24 10/04/24 clonazepam 1 mg tablet 1 mg PO BEDTIME 10/04/24 10/04/24 pregabalin 150 mg capsule 150 mg PO BEDTIME 10/04/24 10/04/24 Previous Rx's ?Medication ?Instructions ?Recorded acetaminophen 650 mg 650 mg PO Q8H PRN fever or pain 04/29/24 tablet,extended release (Tylenol 8 #20 tabs Hour) ibuprofen 400 mg tablet 400 mg PO Q8H PRN pain #20 tabs 04/29/24 clonazepam 1 mg disintegrating 1 mg PO BID PRN Anxiety or spasm 05/14/24 tablet #14 tabs pregabalin 100 mg capsule 100 mg PO DIRECTED #60 caps 10/05/24 Allergies Allergy/AdvReac Type Severity Reaction Status Date / Time Penicillins Allergy Intermediate Hives Verified 02/05/25 18:59 corn Allergy Unknown Verified 02/05/25 18:59 Sulfa (Sulfonamide Allergy Verified 02/05/25 18:59 Antibiotics) Review of Systems Review of Systems ROS Unobtainable: All systems reviewed & are unremarkable except as noted in HPI and below Patient History Medical History (Updated 02/05/25 @ 21:55 by Anastacio Jensen, DO) Unspecified dementia, unspecified severity, without behavioral disturbance, psychotic disturbance, mood disturbance, and anxiety Restless leg syndrome Vitamin B12 deficiency Parkinson's disease with dyskinesia and fluctuating manifestations Other specified disorders of urinary system Lack of coordination Muscle weakness (generalized) Insomnia, unspecified Extended spectrum beta lactamase (ESBL) resistance Diarrhea, unspecified Calculus of kidney Uterovaginal prolapse, unspecified Unspecified osteoarthritis, unspecified site Stress fracture Post-menopausal atrophic vaginitis Pelvic and perineal pain Overactive bladder Anxiety disorder Malignant neoplasm of breast Hypotension, unspecified Major depressive disorder, recurrent Cognitive communication deficit Asthma Parkinson's disease tobacco type: cigarettes Exam Narrative Exam Narrative: GENERAL: [74] year old patient appears stated age. Well-developed patient, in mild distress. HEAD: Atraumatic. Normocephalic. EYES: Pupils equal round and reactive. Extraocular motions intact. No scleral icterus. No injection or drainage. ENT: Nose without bleeding, purulent drainage. Throat without erythema, tonsillar hypertrophy or exudate. Airway patent. NECK: Trachea midline. Non tender CARDIOVASCULAR: Regular rate and rhythm without murmurs, gallops, or rubs. RESPIRATORY: Clear to auscultation. Breath sounds equal bilaterally. No wheezes, rales, or rhonchi. GASTROINTESTINAL: Abdomen soft, non-tender, nondistended. Rectal: External hemorrhoid no signs of thrombosis, no anal fissure EXTREMITIES: No edema or joint tenderness. BACK: Nontender without deformity or crepitance. No flank tenderness. NEURO: AOx3. SKIN: No rash or erythema of visible areas Initial Vital Signs Initial Vital Signs: Vital Signs Temperature 98.3 F 02/05/25 18:59 Pulse Rate 82 02/05/25 18:59 Respiratory Rate 13 02/05/25 18:59 Blood Pressure 118/60 02/05/25 18:59 Pulse Oximetry 94 02/05/25 18:59 Oxygen Delivery Method Room Air 02/05/25 18:59 Course Orders Ordered: ED Orders 02/05/25 19:03 CT abdomen pelvis w con Stat EKG-12 Lead Stat 02/05/25 19:20 Complete Blood Count AUTO DIFF Stat Comprehensive Metabolic Panel Stat Lipase Stat Ondansetron HCl (Ondansetron 4 Mg/2 Ml Inj) 4 mg IV NOW PRN PRN Reason: Nausea And Vomiting Ondansetron HCl (Ondansetron 4 Mg Odt) 4 mg PO NOW PRN PRN Reason: Nausea And Vomiting Discontinued Medications Baclofen (Baclofen 10 Mg Tablet) 10 mg PO NOW ONE Stop: 02/05/25 21:14 Last Admin: 02/05/25 21:29 Dose: 10 mg Documented By: LATESHA Carbidopa/Levodopa (Carbidopa-Levodopa Er 50/200 Tablet) 1 each PO NOW ONE Stop: 02/05/25 21:14 Last Admin: 02/05/25 21:28 Dose: 1 each Documented By: LATESHA Clonazepam (Clonazepam 0.5 Mg Tablet) 1 mg PO NOW ONE Stop: 02/05/25 21:14 Last Admin: 02/05/25 21:28 Dose: 1 mg Documented By: LATESHA Lactated Ringer's (Lactated Ringers) 1,000 mls @ 1,000 mls/hr IV BOLUS ONE Stop: 02/05/25 20:03 Last Infusion: 02/05/25 20:12 Dose: Infused Documented By: Admin: 02/05/25 19:26 Dose: 1,000 mls/hr Documented By: LATESHA Pregabalin (Pregabalin 25 Mg Capsule) 100 mg PO NOW ONE Stop: 02/05/25 21:15 Last Admin: 02/05/25 21:29 Dose: 100 mg Documented By: LATESHA Vital Signs Vital signs: Vital Signs - 8 hr 02/05/25 18:59 02/05/25 19:28 02/05/25 19:30 Temperature 98.3 F Pulse Rate 82 67 65 Respiratory Rate 13 17 17 Blood Pressure 118/60 Pulse Oximetry 94 97 97 Oxygen Delivery Method Room Air 02/05/25 19:30 02/05/25 20:33 02/05/25 20:34 Temperature Pulse Rate 72 Respiratory Rate 25 H Blood Pressure 141/63 H 152/74 H Pulse Oximetry 94 Oxygen Delivery Method 02/05/25 20:34 02/05/25 21:00 02/05/25 21:00 Temperature Pulse Rate 67 60 Respiratory Rate 15 16 Blood Pressure 169/79 H Pulse Oximetry 97 98 Oxygen Delivery Method MDM - Female Genitourinary Lab Data 02/05/25 19:20 02/05/25 19:20 Labs: Lab Results 02/05/25 Range/Units 19:20 WBC 5.7 (4.5-11.0) X10^3/uL RBC 3.99 L (4.0-5.2) X10^6/uL Hgb 12.4 (12.0-16.0) g/dL Hct 37.1 (36-46) % MCV 93.1 (80-100) fL MCH 31.1 (26-34) PG MCHC 33.4 (30-36) % RDW 14.1 (11.6-14.8) % Plt Count 188 (150-400) X10^3/uL Neut % (Auto) 50.7 (50-75) % Lymph % (Auto) 35.1 (25-40) % [place] % (Auto) 9.9 (3-14) % Eos % (Auto) 3.4 (2-4) % Baso % (Auto) 0.9 (0-2) % Neut # (Auto) 2900 (0818-6953) /uL Lymph # (Auto) 2000 (0345-1582) /uL [place] # (Auto) 600 (0-900) /uL Eos # (Auto) 200 (0-450) /uL Baso # (Auto) 0 (0-100) /uL Sodium 137 (137-145) mmol/L Potassium 4.0 (3.4-5.1) mmol/L Chloride 107 (98-107) mmol/L Carbon Dioxide 24 (22-32) mmol/L BUN 22 H (7-17) mg/dL Creatinine 0.66 (0.52-1.04) mg/dL Estimated GFR > 60 (>60) mL/min BUN/Creatinine Ratio 33.3 H (6-22) Glucose 123 H (70-99) mg/dL Calcium 9.1 (8.4-10.2) mg/dL Total Bilirubin 0.4 (0.2-1.3) mg/dL AST 34 (14-36) IU/L ALT 7 (<35) IU/L Alkaline Phosphatase 81 (38-126) U/L Total Protein 7.1 (6.3-8.2) g/dL Albumin 4.1 (3.5-5.0) g/dL Globulin 3.0 (1.7-4.1) g/dL Albumin/Globulin Ratio 1.4 (1.0-2.8) Lipase 329 H (23-300) U/L Imaging Data CT scan - abdomen/pelvis: Radiologist's Impression: [address] [address] [address] Scan Report Signed Patient: Carissa Evans MR#: [id number] : 1950 Acct:[id number] Age/Sex: 74 / F Date of Service: 02/05/25 Loc: ED Accession Number: [id number] Procedure: CT abdomen pelvis w con Ordering Provider: Anastacio Jensen D.O. PROCEDURE: CT ABDOMEN PELVIS W CON INDICATIONS: abd pain/ rectal prolapse? TECHNIQUE: After the administration of intravenous contrast, axial sections acquired from the lung bases to the pubic symphysis. Coronal and sagittal reformats were performed. For radiation dose reduction, the following was used: automated exposure control, adjustment of mA and/or kV according to patient size. COMPARISON: [facility], CT, CT ABDOMEN PELVIS W CON, 12/31/2023, 19:35. FINDINGS: Image quality: Diagnostic. Lower Chest: No significant findings. ABDOMEN: Liver: No solid mass. Gallbladder: No radiopaque gallstones or wall thickening. Biliary ducts: No biliary dilation. Pancreas: No ductal dilation. Spleen: Size is within normal limits. Adrenal Glands: No adrenal nodules. Kidneys and Ureters: No hydronephrosis. No solid mass. No complex renal cystic lesion which requires follow up. Stomach and Bowel: Normal colonic caliber, without significant wall thickening. Peritoneum: No abnormal intraperitoneal fluid. No free air. Ventral Wall: No significant ventral hernia. Abdominal Nodes: No retroperitoneal or mesenteric adenopathy by size criteria. Vessels: Aorta and inferior vena cava are normal in size. PELVIS: Pelvic Organs: Unremarkable. Bladder: No bladder wall thickening, accounting for underdistention. Pelvic Nodes: No enlarged lymph nodes. Miscellaneous: No inguinal hernias are seen. There is protrusion of the bladder neck approximately 1.7 cm below the level of the pelvic floor. There is also inferior displacement of the uterus as well as of the rectum, approximately 3.9 cm below the pelvic floor. Bones: Stable appearance of the T12 vertebral deformity. There is new mild compression deformity of L4, with cortical disruption anteriorly and slightly irregular sclerosis. IMPRESSION: 1. Findings most suggestive of pelvic floor insufficiency both in the anterior and posterior compartments as above, can be better assessed with MRI. 2. No acute intra-abdominal abnormality otherwise. 3. New mild L4 compression fracture, of uncertain age, possibly subacute ECG Data Interpretation: V paced HR 74 RI undetermined QRS [address]-t wave change Change from 10/04/24 [facility] Narrative Medical decision making narrative: All lab work, vital signs, nurse triage note, medication list, previous ER visits, and all imaging studies reviewed. CT scan abdomen and pelvis showed findings suggestive of pelvic floor insufficiency both in the anterior and posterior compartments as above. New mild L4 compression fracture of uncertain etiology possibly subacute. Case discussed with Dr. Sena [employer] consultant oncall recommended outpatient follow up for possible pessary fitting. Differential diagnosis UTI rectal prolapse constipation. Discharge Plan Departure Patient Disposition: Home Clinical Impression: Pelvic floor dysfunction Instructions: DI for Pelvic Floor Dysfunction Activity Restrictions/Additional Instructions: Return with new or worsening symptoms. Please call [employer] consultant to be fitted for possible pessary. Call office [phone]. Prescriptions: No Action carbidopa-levodopa 25-100 mg tablet extended release 2 tab PO QID Rx Instructions: give 2 tablets four times a day: 0700, 1000, 1300, 1600 donepezil 10 mg tablet 10 mg PO DAILY carbidopa-levodopa 50-200 mg tablet extended release 1 tab PO BEDTIME sertraline 100 mg tablet 100 mg PO DAILY cetirizine 10 mg tablet 10 mg PO DAILY entacapone 200 mg tablet 100 mg PO QID Rx Instructions: give 0.5 tablet by mouth four times a day for Parkinson's omeprazole magnesium [Prilosec OTC] 20 mg Tablet,Delayed Release (Dr/Ec) 20 mg PO BID cranberry extract 250 mg Tablet 250 mg PO DAILY clonazepam 1 mg Tablet,Disintegrating 1 mg PO BID PRN (Reason: Anxiety or spasm) Qty: 14 0RF acetaminophen [Tylenol 8 Hour] 650 mg tablet extended release 650 mg PO Q8H PRN (Reason: fever or pain) Qty: 20 0RF ibuprofen 400 mg tablet 400 mg PO Q8H PRN (Reason: pain) Qty: 20 0RF clonazepam 1 mg Tablet 1 mg PO BEDTIME Rx Instructions: administer 30 minutes before bedtime baclofen 10 mg Tablet 10 mg PO BEDTIME pregabalin 150 mg Capsule 150 mg PO BEDTIME pregabalin 100 mg capsule 100 mg PO DIRECTED Qty: 60 0RF Rx Instructions: Take at 8am and 1300 mecobalamin (vitamin B12) 500 mcg tablet,chewable 500 mcg PO d-mannose 500 mg capsule 500 mg PO ondansetron 4 mg tablet,disintegrating 4 mg PO Q8H PRN (Reason: Nausea And Vomiting) Azo Cranberry 250 mg tablet,chewable 250 mg PO DAILY baclofen 10 mg tablet 10 mg PO Q8HR PRN (Reason: Muscle Spasticity) ascorbate calcium (vitamin C) 500 mg tablet 1 g PO BID omega-3 fatty acids 1,000 mg capsule 1,000 mg PO DAILY cholecalciferol (vitamin D3) 25 mcg (1,000 unit) capsule 25 mcg PO DAILY melatonin 5 mg capsule 5 mg PO BEDTIME ropinirole 1 mg tablet 1 mg PO DAILY Referrals: Miscellaneous,Doctor, MD [Primary Care Provider, Medical] Stand Alone Forms: Patient Portal/API
--- NOTE | 2025-02-05 19:03 | DI.CT.S_ITS ---
PROCEDURE: CT ABDOMEN PELVIS W CON INDICATIONS: abd pain/ rectal prolapse? TECHNIQUE: After the administration of intravenous contrast, axial sections acquired from the lung bases to the pubic symphysis. Coronal and sagittal reformats were performed. For radiation dose reduction, the following was used: automated exposure control, adjustment of mA and/or kV according to patient size. COMPARISON: [facility], CT, CT ABDOMEN PELVIS W CON, 12/31/2023, 19:35. FINDINGS: Image quality: Diagnostic. Lower Chest: No significant findings. ABDOMEN: Liver: No solid mass. Gallbladder: No radiopaque gallstones or wall thickening. Biliary ducts: No biliary dilation. Pancreas: No ductal dilation. Spleen: Size is within normal limits. Adrenal Glands: No adrenal nodules. Kidneys and Ureters: No hydronephrosis. No solid mass. No complex renal cystic lesion which requires follow up. Stomach and Bowel: Normal colonic caliber, without significant wall thickening. Peritoneum: No abnormal intraperitoneal fluid. No free air. Ventral Wall: No significant ventral hernia. Abdominal Nodes: No retroperitoneal or mesenteric adenopathy by size criteria. Vessels: Aorta and inferior vena cava are normal in size. PELVIS: Pelvic Organs: Unremarkable. Bladder: No bladder wall thickening, accounting for underdistention. Pelvic Nodes: No enlarged lymph nodes. Miscellaneous: No inguinal hernias are seen. There is protrusion of the bladder neck approximately 1.7 cm below the level of the pelvic floor. There is also inferior displacement of the uterus as well as of the rectum, approximately 3.9 cm below the pelvic floor. Bones: Stable appearance of the T12 vertebral deformity. There is new mild compression deformity of L4, with cortical disruption anteriorly and slightly irregular sclerosis. IMPRESSION: 1. Findings most suggestive of pelvic floor insufficiency both in the anterior and posterior compartments as above, can be better assessed with MRI. 2. No acute intra-abdominal abnormality otherwise. 3. New mild L4 compression fracture, of uncertain age, possibly subacute Dictated by: Marcus Alfred M.D. on 02/05/2025 at 20:35 Approved by: Marcus Alfred M.D. on 02/05/2025 at 20:41
--- NOTE | 2025-02-05 19:03 | EKG_ITS ---
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
[2025-02-05] MEDS: LACTATED RINGERS 1,000 ML 1000 ML IV (19:26)
[2025-02-05 19:38] LABS: Add Manual Diff / Slide Review NO; Hematocrit 37.1 % (36-46); Hemoglobin 12.4 g/dL (12.0-16.0); Lymphocytes Absolute Auto 2000 /uL (1100-4500); Mean Corpuscular HGB Conc 33.4 % (30-36); Mean Corpuscular Hemoglobin 31.1 PG (26-34); Mean Corpuscular Volume 93.1 fL (80-100); Platelet Count 188 X10^3/uL (150-400)
[2025-02-05 19:59] LABS: Alanine Aminotransferase 7 IU/L (<35); Albumin 4.1 g/dL (3.5-5.0); Albumin Globulin Ratio 1.4 (1.0-2.8); Alkaline Phosphatase 81 U/L (38-126); Blood Urea Nitrogen 22 mg/dL (7-17); Calcium 9.1 mg/dL (8.4-10.2); Carbon Dioxide 24 mmol/L (22-32); Chloride 107 mmol/L (98-107); Estimated Glomerular Filt Rate > 60 mL/min (>60); Globulin 3.0 g/dL (1.7-4.1); Glucose 123 mg/dL (70-99); HEMOLYSIS 19 (0-50); Lipase 329 U/L (23-300); Potassium 4.0 mmol/L (3.4-5.1); Sodium 137 mmol/L (137-145); Total Protein 7.1 g/dL (6.3-8.2)
--- NOTE | 2025-02-05 21:20 | PC.NURSE ---
pt asked if she could take her nighttime meds. Provider aware
[2025-02-05] MEDS: CARBIDOPA-LEVODOPA ER 50/200 TABLET 1 EACH PO (21:28)
[2025-02-05] MEDS: BACLOFEN 10 MG TABLET PO (21:29)
[2025-02-05] MEDS: PREGABALIN 25 MG CAPSULE 100 MG PO (21:29)
== END 2025-02-05 22:29 | disposition home or self-care (01) ==
PROVIDERS: Emergency Provider Family Medicine
DX: M62.89 Other specified disorders of muscle (principal); R10.9 Unspecified abdominal pain
CPT/HCPCS: 36415; 74177; 80053; 83690; 85025; 93005; 93010; 96360; 99284; Q9967

== ENCOUNTER 2025-03-23 05:41 | Emergency (ER) | payer MEDICARE, MEDICAID, SELFPAY ==
[2024-10-04 15:12] VITALS: BMI 20.9
[2025-03-23] VITALS (17 sets, daily range): BP systolic 140–170; BP diastolic 63–81; PULSE 53–87; RESP 16–18; TEMP 36.6; O2SAT 93–96; BMI 24.3
--- NOTE | 2025-03-23 07:09 | ED.FEMALEGU ---
HPI - Female Genitourinary <Mario Cade MD - Last Filed: 03/23/25 07:37> General Chief complaint: Urogenital-Female Stated complaint: urinary retention Time Seen by Provider: 03/23/25 06:01 Source: EMS Mode of arrival: EMS History of Present Illness HPI Narrative: 74-year-old female with a history of Parkinson's disease comes in with urinary retention that started yesterday. Her last time to urinate was yesterday. She does complain of some suprapubic discomfort but no other symptoms. Related Data Home Medications ?Medication ?Instructions ?Recorded ?Confirmed carbidopa ER 25 mg-levodopa 100 mg 2 tab PO QID 12/31/23 03/10/25 tablet,extended release cholecalciferol (vitamin D3) 25 25 mcg PO DAILY 02/14/24 03/10/25 mcg (1,000 unit) capsule melatonin 5 mg capsule 5 mg PO BEDTIME 02/14/24 03/10/25 omega-3 fatty acids 1,000 mg 1,000 mg PO DAILY 02/14/24 03/10/25 capsule carbidopa ER 50 mg-levodopa 200 mg 1 tab PO BEDTIME 05/11/24 03/10/25 tablet,extended release cetirizine 10 mg tablet 10 mg PO DAILY Allergies 05/11/24 03/10/25 cranberry extract 250 mg tablet 250 mg PO DAILY 05/11/24 03/10/25 donepezil 10 mg tablet 10 mg PO DAILY 05/11/24 03/10/25 entacapone 200 mg tablet 100 mg PO QID Parkinson's 05/11/24 03/10/25 omeprazole magnesium 20 mg 20 mg PO BID 05/11/24 03/10/25 tablet,delayed release (Prilosec OTC) sertraline 100 mg tablet 100 mg PO DAILY Depression 05/11/24 03/10/25 ascorbate calcium (vitamin C) 500 1 g PO BID 08/29/24 03/10/25 mg tablet baclofen 10 mg tablet 10 mg PO Q8HR PRN Muscle Spasticity 08/29/24 03/10/25 cranberry fruit concentrate 250 mg 250 mg PO DAILY 08/29/24 03/10/25 chewable tablet (Azo Cranberry) d-mannose 500 mg capsule 500 mg PO 08/29/24 03/10/25 mecobalamin (vitamin B12) 500 mcg 500 mcg PO 08/29/24 03/10/25 chewable tablet ondansetron 4 mg disintegrating 4 mg PO Q8H PRN Nausea And Vomiting 08/29/24 03/10/25 tablet ropinirole 1 mg tablet 1 mg PO DAILY 09/15/24 03/10/25 baclofen 10 mg tablet 10 mg PO BEDTIME 10/04/24 03/10/25 clonazepam 1 mg tablet 1 mg PO BEDTIME 10/04/24 03/10/25 pregabalin 150 mg capsule 150 mg PO BEDTIME 10/04/24 03/10/25 Previous Rx's ?Medication ?Instructions ?Recorded acetaminophen 650 mg 650 mg PO Q8H PRN fever or pain 04/29/24 tablet,extended release (Tylenol 8 #20 tabs Hour) ibuprofen 400 mg tablet 400 mg PO Q8H PRN pain #20 tabs 04/29/24 clonazepam 1 mg disintegrating 1 mg PO BID PRN Anxiety or spasm 05/14/24 tablet #14 tabs pregabalin 100 mg capsule 100 mg PO DIRECTED #60 caps 10/05/24 Allergies Allergy/AdvReac Type Severity Reaction Status Date / Time Penicillins Allergy Intermediate Hives Verified 03/24/25 01:38 corn Allergy Unknown Verified 03/24/25 01:38 Sulfa (Sulfonamide Allergy Verified 03/24/25 01:38 Antibiotics) <Layla Faith MD - Last Filed: 03/23/25 16:34> History of Present Illness HPI Narrative: 74-year-old female with a history of Parkinson's disease comes in with urinary retention that started yesterday. Her last time to urinate was yesterday. She does complain of some suprapubic discomfort but no other symptoms. She states that she has solid food coming out of her vagina any time she eats, she has restricted herself to soft foods including peanut butter and jelly sandwiches is the majority of her diet. Review of Systems <Mario Cade MD - Last Filed: 03/23/25 07:37> Review of Systems ROS Unobtainable: All systems reviewed & are unremarkable except as noted in HPI and below Patient History <Mario Cade MD - Last Filed: 03/23/25 07:37> Medical History Unspecified dementia, unspecified severity, without behavioral disturbance, psychotic disturbance, mood disturbance, and anxiety Restless leg syndrome Vitamin B12 deficiency Parkinson's disease with dyskinesia and fluctuating manifestations Other specified disorders of urinary system Lack of coordination Muscle weakness (generalized) Insomnia, unspecified Extended spectrum beta lactamase (ESBL) resistance Diarrhea, unspecified Calculus of kidney Uterovaginal prolapse, unspecified Unspecified osteoarthritis, unspecified site Stress fracture Post-menopausal atrophic vaginitis Pelvic and perineal pain Overactive bladder Anxiety disorder Malignant neoplasm of breast Hypotension, unspecified Major depressive disorder, recurrent Cognitive communication deficit Asthma Parkinson's disease tobacco type: cigarettes Exam <Mario Cade MD - Last Filed: 03/23/25 07:37> Narrative Exam Narrative: General: Patient appears to be in no acute distress, acting appropriately Head: normocephalic, atraumatic, HEENT: Pupils equal round reactive, eyes tracking well, neck supple, no JVD Heart: regular rate and rhythm, no murmurs, rubs, or gallops heard Lungs: clear to auscultation, no adventitious sounds Abdomen: soft , mildly tender to palpation suprapubic region, nondistended, positive bowel sounds Neurological: no focal neurological signs, moving all extremities well, alert and oriented x3, Psych: good judgment ,good insight, mood is normal. Initial Vital Signs Initial Vital Signs: Vital Signs Temperature 97.8 F 03/23/25 05:54 Pulse Rate 63 03/23/25 05:54 Respiratory Rate 18 03/23/25 05:54 Blood Pressure 154/72 H 03/23/25 05:54 Pulse Oximetry 95 03/23/25 05:54 Oxygen Delivery Method Room Air 03/23/25 05:54 <Fly Sims MD - Last Filed: 03/24/25 11:25> Initial Vital Signs Initial Vital Signs: Vital Signs Temperature 97.8 F 03/23/25 05:54 Pulse Rate 63 03/23/25 05:54 Respiratory Rate 18 03/23/25 05:54 Blood Pressure 154/72 H 03/23/25 05:54 Pulse Oximetry 95 03/23/25 05:54 Oxygen Delivery Method Room Air 03/23/25 05:54 <Layla Faith MD - Last Filed: 03/23/25 16:34> Narrative Exam Narrative: General: Alert appropriate in no acute distress Respiratory: Able to speak in full sentences, no obvious respiratory distress Skin: No obvious rashes, warm and dry Neurologic: Grossly intact no obvious asymmetries or abnormalities Psych: appropriate insight and affect, cooperative Vaginal: Vagina is examined. No discharge, no odor, no feculent material. Pessary is removed, gently cleaned and replaced without any difficulty. Initial Vital Signs Initial Vital Signs: Vital Signs Temperature 97.8 F 03/23/25 05:54 Pulse Rate 63 03/23/25 05:54 Respiratory Rate 18 03/23/25 05:54 Blood Pressure 154/72 H 03/23/25 05:54 Pulse Oximetry 95 03/23/25 05:54 Oxygen Delivery Method Room Air 03/23/25 05:54 Course <Mario Cade MD - Last Filed: 03/23/25 07:37> Orders Ordered: Discontinued Medications Carbidopa/Levodopa (Carbidopa-Levodopa 25/100 Tablet) 1 each PO QID [facility] Last Admin: 03/23/25 12:36 Dose: 1 each Documented By: TIGIST Vital Signs Vital signs: Vital Signs - 8 hr 03/23/25 08:30 03/23/25 08:30 03/23/25 09:00 Pulse Rate 69 Respiratory Rate Blood Pressure 156/70 H 163/77 H Pulse Oximetry 95 03/23/25 09:00 03/23/25 09:30 03/23/25 09:30 Pulse Rate 60 61 Respiratory Rate Blood Pressure 159/72 H Pulse Oximetry 94 95 03/23/25 10:00 03/23/25 10:00 03/23/25 10:30 Pulse Rate 53 L 66 Respiratory Rate Blood Pressure 140/63 Pulse Oximetry 94 95 03/23/25 10:30 03/23/25 11:00 03/23/25 11:00 Pulse Rate 68 Respiratory Rate 16 Blood Pressure 164/72 H 158/73 H Pulse Oximetry 94 03/23/25 11:30 03/23/25 11:30 03/23/25 12:00 Pulse Rate 78 73 Respiratory Rate Blood Pressure 158/72 H Pulse Oximetry 95 94 03/23/25 12:00 03/23/25 12:30 03/23/25 12:30 Pulse Rate 75 Respiratory Rate Blood Pressure 156/70 H 157/70 H Pulse Oximetry 94 11/10/25 13:00 03/23/25 13:00 03/23/25 13:30 Pulse Rate 77 Respiratory Rate Blood Pressure 164/76 H 157/71 H Pulse Oximetry 94 03/23/25 13:30 03/23/25 14:00 03/23/25 14:00 Pulse Rate 68 85 Respiratory Rate Blood Pressure 162/72 H Pulse Oximetry 94 93 03/23/25 14:30 03/23/25 14:30 03/23/25 15:30 Pulse Rate 87 85 Respiratory Rate 16 Blood Pressure 160/77 H Pulse Oximetry 95 95 03/23/25 15:30 03/23/25 16:00 03/23/25 16:00 Pulse Rate 85 Respiratory Rate 16 Blood Pressure 170/81 H 151/70 H Pulse Oximetry 94 <Fly Sims MD - Last Filed: 03/24/25 11:25> Orders Ordered: Discontinued Medications Carbidopa/Levodopa (Carbidopa-Levodopa 25/100 Tablet) 1 each PO QID [facility] Last Admin: 03/23/25 12:36 Dose: 1 each Documented By: EB Vital Signs Vital signs: Vital Signs - 8 hr 03/23/25 08:30 03/23/25 08:30 03/23/25 09:00 Pulse Rate 69 Respiratory Rate Blood Pressure 156/70 H 163/77 H Pulse Oximetry 95 03/23/25 09:00 03/23/25 09:30 03/23/25 09:30 Pulse Rate 60 61 Respiratory Rate Blood Pressure 159/72 H Pulse Oximetry 94 95 03/23/25 10:00 03/23/25 10:00 03/23/25 10:30 Pulse Rate 53 L 66 Respiratory Rate Blood Pressure 140/63 Pulse Oximetry 94 95 03/23/25 10:30 03/23/25 11:00 03/23/25 11:00 Pulse Rate 68 Respiratory Rate 16 Blood Pressure 164/72 H 158/73 H Pulse Oximetry 94 03/23/25 11:30 03/23/25 11:30 03/23/25 12:00 Pulse Rate 78 73 Respiratory Rate Blood Pressure 158/72 H Pulse Oximetry 95 94 03/23/25 12:00 03/23/25 12:30 03/23/25 12:30 Pulse Rate 75 Respiratory Rate Blood Pressure 156/70 H 157/70 H Pulse Oximetry 94 03/23/25 13:00 03/23/25 13:00 03/23/25 13:30 Pulse Rate 77 Respiratory Rate Blood Pressure 164/76 H 157/71 H Pulse Oximetry 94 03/23/25 13:30 03/23/25 14:00 03/23/25 14:00 Pulse Rate 68 85 Respiratory Rate Blood Pressure 162/72 H Pulse Oximetry 94 93 03/23/25 14:30 03/23/25 14:30 03/23/25 15:30 Pulse Rate 87 85 Respiratory Rate 16 Blood Pressure 160/77 H Pulse Oximetry 95 95 03/23/25 15:30 03/23/25 16:00 03/23/25 16:00 Pulse Rate 85 Respiratory Rate 16 Blood Pressure 170/81 H 151/70 H Pulse Oximetry 94 <Layla Faith MD - Last Filed: 03/23/25 16:34> Orders Ordered: Discontinued Medications Carbidopa/Levodopa (Carbidopa-Levodopa 25/100 Tablet) 1 each PO QID [facility] Last Admin: 03/23/25 12:36 Dose: 1 each Documented By: EB Vital Signs Vital signs: Vital Signs - 8 hr 03/23/25 08:30 03/23/25 08:30 03/23/25 09:00 Pulse Rate 69 Respiratory Rate Blood Pressure 156/70 H 163/77 H Pulse Oximetry 95 03/23/25 09:00 03/23/25 09:30 03/23/25 09:30 Pulse Rate 60 61 Respiratory Rate Blood Pressure 159/72 H Pulse Oximetry 94 95 03/23/25 10:00 03/23/25 10:00 03/23/25 10:30 Pulse Rate 53 L 66 Respiratory Rate Blood Pressure 140/63 Pulse Oximetry 94 95 03/23/25 10:30 03/23/25 11:00 03/23/25 11:00 Pulse Rate 68 Respiratory Rate 16 Blood Pressure 164/72 H 158/73 H Pulse Oximetry 94 03/23/25 11:30 03/23/25 11:30 03/23/25 12:00 Pulse Rate 78 73 Respiratory Rate Blood Pressure 158/72 H Pulse Oximetry 95 94 03/23/25 12:00 03/23/25 12:30 03/23/25 12:30 Pulse Rate 75 Respiratory Rate Blood Pressure 156/70 H 157/70 H Pulse Oximetry 94 03/23/25 13:00 03/23/25 13:00 03/23/25 13:30 Pulse Rate 77 Respiratory Rate Blood Pressure 164/76 H 157/71 H Pulse Oximetry 94 03/23/25 13:30 03/23/25 14:00 03/23/25 14:00 Pulse Rate 68 85 Respiratory Rate Blood Pressure 162/72 H Pulse Oximetry 94 93 03/23/25 14:30 03/23/25 14:30 03/23/25 15:30 Pulse Rate 87 85 Respiratory Rate 16 Blood Pressure 160/77 H Pulse Oximetry 95 95 03/23/25 15:30 03/23/25 16:00 03/23/25 16:00 Pulse Rate 85 Respiratory Rate 16 Blood Pressure 170/81 H 151/70 H Pulse Oximetry 94 MDM - Female Genitourinary <Mario Cade MD - Last Filed: 03/23/25 07:37> Lab Data Labs: Lab Results 03/23/25 03/23/25 Range/Units 05:48 09:17 POC Whole Bld Glucose 123 H (70-99) mg/dL Urine Color Yellow Urine Appearance Clear Urine pH 5.5 (4.5-8.0) Ur Specific [place] 1.020 (1.000-1.035) Urine Protein Negative (Negative) Urine Glucose (UA) Negative (Negative) g/dL Urine Ketones Trace H (NEGATIVE) Urine Occult Blood Negative (Negative) Urine Nitrate Negative (Negative) Urine Bilirubin Negative (NEGATIVE) Urine Urobilinogen 0.2 (0.2) E.U./dL Ur Leukocyte Esterase Negative (NEGATIVE) Urine RBC None seen (0-5/HPF) Urine WBC None seen (0-5/HPF) Ur Squamous Epith Cells None seen (0-5/HPF) Urine Bacteria None seen (None) Ur Culture Indicated? Cult not indicated Vol Urine Centrifuged 10ml (spun) MDM Narrative Medical decision making narrative: 74-year-old female with urinary retention due to Parkinson's disease most likely. Advised to insert Starr catheter. Patient is signed out to next physician <Fly Sims MD - Last Filed: 03/24/25 11:25> Lab Data Labs: Lab Results 03/23/25 03/23/25 Range/Units 05:48 09:17 POC Whole Bld Glucose 123 H (70-99) mg/dL Urine Color Yellow Urine Appearance Clear Urine pH 5.5 (4.5-8.0) Ur Specific [place] 1.020 (1.000-1.035) Urine Protein Negative (Negative) Urine Glucose (UA) Negative (Negative) g/dL Urine Ketones Trace H (NEGATIVE) Urine Occult Blood Negative (Negative) Urine Nitrate Negative (Negative) Urine Bilirubin Negative (NEGATIVE) Urine Urobilinogen 0.2 (0.2) E.U./dL Ur Leukocyte Esterase Negative (NEGATIVE) Urine RBC None seen (0-5/HPF) Urine WBC None seen (0-5/HPF) Ur Squamous Epith Cells None seen (0-5/HPF) Urine Bacteria None seen (None) Ur Culture Indicated? Cult not indicated Vol Urine Centrifuged 10ml (spun) [facility] Narrative Medical decision making narrative: 74-year-old female with urinary retention due to Parkinson's disease most likely. Advised to insert Starr catheter. Patient is signed out to next physician 3:23 p.m. I got signed out this morning for follow up urinary retention. The patient was having Starr catheter put in. Her UA showed no UTI. <Layla Faith MD - Last Filed: 03/23/25 16:34> Lab Data Labs: Lab Results 03/23/25 03/23/25 Range/Units 05:48 09:17 POC Whole Bld Glucose 123 H (70-99) mg/dL Urine Color Yellow Urine Appearance Clear Urine pH 5.5 (4.5-8.0) Ur Specific [place] 1.020 (1.000-1.035) Urine Protein Negative (Negative) Urine Glucose (UA) Negative (Negative) g/dL Urine Ketones Trace H (NEGATIVE) Urine Occult Blood Negative (Negative) Urine Nitrate Negative (Negative) Urine Bilirubin Negative (NEGATIVE) Urine Urobilinogen 0.2 (0.2) E.U./dL Ur Leukocyte Esterase Negative (NEGATIVE) Urine RBC None seen (0-5/HPF) Urine WBC None seen (0-5/HPF) Ur Squamous Epith Cells None seen (0-5/HPF) Urine Bacteria None seen (None) Ur Culture Indicated? Cult not indicated Vol Urine Centrifuged 10ml (spun) [facility] Narrative Medical decision making narrative: 74-year-old female with urinary retention due to Parkinson's disease most likely. Advised to insert Starr catheter. Patient is signed out to next physician 3:23 p.m. I got signed out this morning for follow up urinary retention. The patient was having Starr catheter put in. Her UA showed no UTI. 340pm Dr Faith, care assumed. patient examined 74-year-old woman at [facility], history of Parkinson's disease continued and persistent delusional beliefs there is food coming out of her vagina despite any evidence of colo-vaginal fistula. She has has a history of recurrent urinary tract infections, does not currently have a urinary tract infection. There was no sign of acute infection. She does need to continue topical estrogens to try and prevent this. Her vaginal exam shows an appropriately positioned and fitting pessary. It was cleaned, removed and after discussion with OBGYN replaced. She did have a urine catheter in for some of her emergency department stay, she is draining appropriate urine, this is removed prior to discharge. Urology and automatic gluing machine operator notes are reviewed and care is also discussed with 1 of the gynecologists who works with Dr. Qiu. At this point patient continues to be quite concerned that if she eats solid food will come directly out of her vagina. She does not on clinical exam have any abnormalities in her vagina and her pessary was also quite clean. Despite reassurance to the contrary, she continues to note that even today in the emergency department she was having solid food from her vagina. Encouraged her as well as staff at [facility] to have her have a large glass of water and try immobilization if she is having difficulty voiding. It may be that the pessary just simply needs to shift a little bit to not place quite so much pressure on the posterior urethra. There was no indication for further workup or hospitalization and she is safely discharge Discharge Plan Departure Patient Disposition: Home Clinical Impression: Acute urinary retention, Delusional ideas Parkinson's disease Qualifiers: Dyskinesia presence: unspecified whether dyskinesia Fluctuating manifestations: unspecified whether manifestations fluctuate Qualified Code(s): G20.A1 - Parkinson's disease without dyskinesia, without mention of fluctuations Instructions: DI for Urinary Retention in Women Activity Restrictions/Additional Instructions: Thank you for coming in today You do not have a bladder infection, you do not need any antibiotics You were able to go to the bathroom You did have a catheter in briefly and I removed it before you were discharged I took your pessary out, cleaned it and replaced it. It fits appropriately and does not need any further attention until your scheduled automatic gluing machine operator appointment If you find that you are having difficulty peeing again, I would recommend that you have a large glass of water, get up and walk around for 5-10 minutes and try again I know that you are worried that there was food coming out of your vagina. I did a very careful exam today in your vagina is healthy, there is no evidence of any stool or food in your vagina. There was no reason to restrict your diet in any way If you find that you are getting worse or develop any new symptoms, please feel free to return to the emergency department for further evaluation. Prescriptions: No Action carbidopa-levodopa 25-100 mg tablet extended release 2 tab PO QID Rx Instructions: give 2 tablets four times a day: 0700, 1000, 1300, 1600 donepezil 10 mg tablet 10 mg PO DAILY carbidopa-levodopa 50-200 mg tablet extended release 1 tab PO BEDTIME sertraline 100 mg tablet 100 mg PO DAILY cetirizine 10 mg tablet 10 mg PO DAILY entacapone 200 mg tablet 100 mg PO QID Rx Instructions: give 0.5 tablet by mouth four times a day for Parkinson's omeprazole magnesium [Prilosec OTC] 20 mg Tablet,Delayed Release (Dr/Ec) 20 mg PO BID cranberry extract 250 mg Tablet 250 mg PO DAILY clonazepam 1 mg Tablet,Disintegrating 1 mg PO BID PRN (Reason: Anxiety or spasm) Qty: 14 0RF acetaminophen [Tylenol 8 Hour] 650 mg tablet extended release 650 mg PO Q8H PRN (Reason: fever or pain) Qty: 20 0RF ibuprofen 400 mg tablet 400 mg PO Q8H PRN (Reason: pain) Qty: 20 0RF clonazepam 1 mg Tablet 1 mg PO BEDTIME Rx Instructions: administer 30 minutes before bedtime baclofen 10 mg Tablet 10 mg PO BEDTIME pregabalin 150 mg Capsule 150 mg PO BEDTIME pregabalin 100 mg capsule 100 mg PO DIRECTED Qty: 60 0RF Rx Instructions: Take at 8am and 1300 mecobalamin (vitamin B12) 500 mcg tablet,chewable 500 mcg PO d-mannose 500 mg capsule 500 mg PO ondansetron 4 mg tablet,disintegrating 4 mg PO Q8H PRN (Reason: Nausea And Vomiting) Azo Cranberry 250 mg tablet,chewable 250 mg PO DAILY baclofen 10 mg tablet 10 mg PO Q8HR PRN (Reason: Muscle Spasticity) ascorbate calcium (vitamin C) 500 mg tablet 1 g PO BID omega-3 fatty acids 1,000 mg capsule 1,000 mg PO DAILY cholecalciferol (vitamin D3) 25 mcg (1,000 unit) capsule 25 mcg PO DAILY melatonin 5 mg capsule 5 mg PO BEDTIME ropinirole 1 mg tablet 1 mg PO DAILY Referrals: Miscellaneous,Doctor, MD [Primary Care Provider, Medical] Stand Alone Forms: Patient Portal/API
--- NOTE | 2025-03-23 07:32 | PC.NURSE ---
Handover report given to LORAINE Heard
[2025-03-23 09:52] LABS: Appearance Urine UA CLEAR; Bilirubin Urine UA NEGATIVE (NEGATIVE); Color Urine UA YELLOW; Glucose Urine UA NEGATIVE (Negative); Ketones Urine UA TRACE (NEGATIVE); Leukocyte Esterase Urine UA NEGATIVE (NEGATIVE); Nitrite Urine UA NEGATIVE (Negative); Occult Blood Urine UA NEGATIVE (Negative); Protein Urine UA NEGATIVE (Negative); Specific Gravity Urine UA 1.020 (1.000-1.035); Urobilinogen Urine UA 0.2 E.U./dL (0.2); pH Urine UA 5.5 (4.5-8.0)
[2025-03-23 09:54] LABS: Culture Indicated Urine Cult Not Indicated
[2025-03-23] MEDS: CARBIDOPA-LEVODOPA 25/100 TABLET 1 EACH PO (12:36)
--- NOTE | 2025-03-23 14:22 | PC.NURSE ---
Call to Elmo NARAYAN, will be here in about an hour.
== END 2025-03-23 16:54 | disposition home or self-care (01) ==
PROVIDERS: Emergency Medicine; Emergency Provider Emergency Medicine
DX: R33.8 Other retention of urine (principal); F22 Delusional disorders; G20.A1 Parkinson's disease without dyskinesia, without mention of fluctuations
CPT/HCPCS: 51798; 81001; 82962; 99283; 99284

== ENCOUNTER 2025-03-24 01:17 | Emergency (ER) | payer MEDICARE, MEDICAID, SELFPAY ==
[2024-10-04 15:12] VITALS: BMI 20.9
--- NOTE | 2025-03-24 01:30 | DI.CT.S_ITS ---
PROCEDURE: CT HEAD/BRAIN WO CON INDICATIONS: fall. low BP, hit head TECHNIQUE: Noncontrast 4.5 mm thick angled axial sections acquired from the foramen magnum to the vertex, with coronal and sagittal reformats. For radiation dose reduction, the following was used: automated exposure control, adjustment of mA and/or kV according to patient size. COMPARISON: [facility], CT, CT HEAD/BRAIN WO CON, 10/04/2024, 11:35. [facility], CT, CT HEAD/BRAIN WO CON, 05/17/2024, 10:58. FINDINGS: Image quality: Diagnostic. CSF spaces: Basal cisterns are patent. No extra-axial fluid collections. The ventricles are symmetric in size and shape. Brain: No intracranial bleeds or mass effect. Stable appearance and positioning of bilateral deep brain stimulator leads. There is cerebral volume loss, with resultant ventricular and sulcal prominence. There are periventricular and deep white matter chronic small vessel ischemic changes. There is intracranial internal carotid artery atherosclerosis. Skull and face: Calvarium and visualized facial bones appear intact, without suspicious lesions. Sinuses: Visualized sinuses and mastoids are clear. IMPRESSION: No acute intracranial pathology. Stable CT evaluation without significant changes. Dictated by: Sonu Shaw M.D. on 03/24/2025 at 1:59 Approved by: Sonu Shaw M.D. on 03/24/2025 at 2:06
--- NOTE | 2025-03-24 01:30 | DI.RAD.S_ITS ---
PROCEDURE: XR CHEST 1V INDICATIONS: fall. low BP, hit head TECHNIQUE: One view of the chest was acquired. COMPARISON: [facility], CR, XR CHEST 1V, 10/04/2024, 12:07. FINDINGS: Surgical changes and devices: Left chest wall generator pack noted with dual leads extending cephalad. Lungs and pleura: Lungs are clear. No pleural effusions or pneumothorax. Mediastinum: Mediastinal contours appear normal. Heart size is normal. Bones and chest wall: No suspicious bony lesions. Overlying soft tissues appear unremarkable. IMPRESSION: No acute cardiopulmonary abnormality is seen. Dictated by: Sonu Shaw M.D. on 03/24/2025 at 2:06 Approved by: Sonu Shaw M.D. on 03/24/2025 at 2:06
--- NOTE | 2025-03-24 01:30 | DI.CT.S_ITS ---
PROCEDURE: CT CERVICAL SPINE WO CON INDICATIONS: fall. low BP, hit head TECHNIQUE: Noncontrast 3 mm thick sections acquired from the skull base to the T4 level. Sagittal and coronal reformats were then constructed. For radiation dose reduction, the following was used: automated exposure control, adjustment of mA and/or kV according to patient size. COMPARISON: None. FINDINGS: Image quality: Diagnostic Bones: No fractures or dislocations. Visualized superior ribs are intact. Degenerate disc osteophyte complexes from C3-4 through C5-6 with mild facet arthrosis on the left at C2-3 and moderate facet arthrosis on the right at C3-4. Soft tissues: Changes of bilateral deep brain stimulator device placement in the partially visualized basal ganglia. Multinodular thyroid. Prevertebral soft tissues are normal in thickness. No paravertebral hematomas. No apical pneumothoraces. IMPRESSION: No displaced fracture or traumatic subluxation. Multinodular thyroid, recommend correlation with outpatient thyroid ultrasound. Findings are concordant preliminary interpretation provided by [facility]. Dictated by: Sebastian Borges M.D. on 03/24/2025 at 8:04 Approved by: Sebastian Borges M.D. on 03/24/2025 at 8:06
--- NOTE | 2025-03-24 01:32 | ED.TRAUMA ---
HPI - Trauma General Chief Complaint: Fall Stated Complaint: fell out of wheelchair hypotensive Time Seen by Provider: 03/24/25 01:22 Source: patient, EMS, RN notes reviewed and old records reviewed Mode of arrival: EMS Limitations: no limitations History of Present Illness HPI narrative: 74-year-old female history of Parkinson's, GERD, chronic pain who presents with complaint of fall. Patient states she was in her wheelchair trying to get a snack. States she fell and hit the back of her head. She states her head does hurt. She defers anything for pain. She denies any neck pain. She denies loss of consciousness. Denies chest pain or shortness of breath. No numbness tingling or weakness. Denies any nausea or vomiting. Denies any other new GI or urinary symptoms. Notes she has had some issues with urinary retention in the past. States no new urinary symptoms today. EMS notes that her blood pressure was in the 90s systolic. Patient states that has atypical. She notes an allergy to corn, penicillin and sulfa. No tobacco, no alcohol, no recreational drugs. She is DNR/DNI. She currently lives at [facility]. Her fall was unwitnessed. Related Data Home Medications ?Medication ?Instructions ?Recorded ?Confirmed carbidopa ER 25 mg-levodopa 100 mg 2 tab PO QID 12/31/23 03/10/25 tablet,extended release cholecalciferol (vitamin D3) 25 25 mcg PO DAILY 02/14/24 03/10/25 mcg (1,000 unit) capsule melatonin 5 mg capsule 5 mg PO BEDTIME 02/14/24 03/10/25 omega-3 fatty acids 1,000 mg 1,000 mg PO DAILY 02/14/24 03/10/25 capsule carbidopa ER 50 mg-levodopa 200 mg 1 tab PO BEDTIME 05/11/24 03/10/25 tablet,extended release cetirizine 10 mg tablet 10 mg PO DAILY Allergies 05/11/24 03/10/25 cranberry extract 250 mg tablet 250 mg PO DAILY 05/11/24 03/10/25 donepezil 10 mg tablet 10 mg PO DAILY 05/11/24 03/10/25 entacapone 200 mg tablet 100 mg PO QID Parkinson's 05/11/24 03/10/25 omeprazole magnesium 20 mg 20 mg PO BID 05/11/24 03/10/25 tablet,delayed release (Prilosec OTC) sertraline 100 mg tablet 100 mg PO DAILY Depression 05/11/24 03/10/25 ascorbate calcium (vitamin C) 500 1 g PO BID 08/29/24 03/10/25 mg tablet baclofen 10 mg tablet 10 mg PO Q8HR PRN Muscle Spasticity 08/29/24 03/10/25 cranberry fruit concentrate 250 mg 250 mg PO DAILY 08/29/24 03/10/25 chewable tablet (Azo Cranberry) d-mannose 500 mg capsule 500 mg PO 08/29/24 03/10/25 mecobalamin (vitamin B12) 500 mcg 500 mcg PO 08/29/24 03/10/25 chewable tablet ondansetron 4 mg disintegrating 4 mg PO Q8H PRN Nausea And Vomiting 08/29/24 03/10/25 tablet ropinirole 1 mg tablet 1 mg PO DAILY 09/15/24 03/10/25 baclofen 10 mg tablet 10 mg PO BEDTIME 10/04/24 03/10/25 clonazepam 1 mg tablet 1 mg PO BEDTIME 10/04/24 03/10/25 pregabalin 150 mg capsule 150 mg PO BEDTIME 10/04/24 03/10/25 Previous Rx's ?Medication ?Instructions ?Recorded acetaminophen 650 mg 650 mg PO Q8H PRN fever or pain 04/29/24 tablet,extended release (Tylenol 8 #20 tabs Hour) ibuprofen 400 mg tablet 400 mg PO Q8H PRN pain #20 tabs 04/29/24 clonazepam 1 mg disintegrating 1 mg PO BID PRN Anxiety or spasm 05/14/24 tablet #14 tabs pregabalin 100 mg capsule 100 mg PO DIRECTED #60 caps 10/05/24 Allergies Allergy/AdvReac Type Severity Reaction Status Date / Time Penicillins Allergy Intermediate Hives Verified 03/24/25 01:38 corn Allergy Unknown Verified 03/24/25 01:38 Sulfa (Sulfonamide Allergy Verified 03/24/25 01:38 Antibiotics) Review of Systems Review of Systems ROS Unobtainable: All systems reviewed & are unremarkable except as noted in HPI and below Patient History Medical History Unspecified dementia, unspecified severity, without behavioral disturbance, psychotic disturbance, mood disturbance, and anxiety Restless leg syndrome Vitamin B12 deficiency Parkinson's disease with dyskinesia and fluctuating manifestations Other specified disorders of urinary system Lack of coordination Muscle weakness (generalized) Insomnia, unspecified Extended spectrum beta lactamase (ESBL) resistance Diarrhea, unspecified Calculus of kidney Uterovaginal prolapse, unspecified Unspecified osteoarthritis, unspecified site Stress fracture Post-menopausal atrophic vaginitis Pelvic and perineal pain Overactive bladder Anxiety disorder Malignant neoplasm of breast Hypotension, unspecified Major depressive disorder, recurrent Cognitive communication deficit Asthma Parkinson's disease Social History household members: none alcohol intake: never tobacco type: cigarettes alcohol intake frequency: holidays/special occasions only Exam Narrative Exam Narrative: GEN: Patient appears in mild distress. HEAD: Patient has a small hematoma posterior right parietal scalp, no raccoon/Velásquez sign. NECK: Nontender, painless range of motion, trachea midline Negative Nexus criteria, negative line tenderness, distracting injury, altered mental status, neuro deficit, recent EtOH. EYES: PERRLA, EOMI ENT: External inspection normal, trachea is midline, TM's are normal no hemotypanum, Nares are clear, no septal hematoma, no dental or oral injury, airway is normal and with normal occlusion, No bony tenderness RESP: Chest is nontender and has symmetric movement, no ecchymosis, breath sounds are normal no crackles, wheezes or rales CVS: Heart sounds are normal, no murmur noted, No JVD. ABG/GI: Nontender, soft, normal bowel sounds, no distention, no organomegaly, pelvic rock is negative NEURO: Oriented AOx3, neuro is grossly intact, sensation and motor is normal all 4 extremities moving, cranial nerves II through XII are intact, GCS is 15 PSYCH: Normal mood and affect SKIN: Intact, warm and dry, no crepitus and without decubitus BACK: No CVA tenderness, no vertebral tenderness, no step-off's, no crepitus EXT: Atraumatic, hips are nontender, no pedal edema, normal color and temperature, normal range of motion of extremities with normal tendon exam, 2+ pulses in all four extremities Initial Vital Signs Initial Vital Signs: Vital Signs Temperature 97 F L 03/24/25 01:38 Pulse Rate 57 L 03/24/25 01:38 Respiratory Rate 16 03/24/25 01:38 Blood Pressure 96/46 L 03/24/25 01:38 Pulse Oximetry 93 03/24/25 01:38 Oxygen Delivery Method Room Air 03/24/25 01:38 Course Orders Ordered: ED Orders 03/24/25 01:30 CT cervical spine wo con Stat CT head/brain wo con Stat Chest [XR chest 1V] Stat EKG-12 Lead Stat Discontinued Medications Sodium Chloride (Normal Saline 0.9%) 1,000 mls @ 1,000 mls/hr IV BOLUS ONE Stop: 03/24/25 02:29 Last Admin: 03/24/25 02:50 Dose: Not Given Vital Signs Vital signs: Vital Signs - 8 hr 03/24/25 01:38 03/24/25 03:21 Temperature 97 F L Pulse Rate 57 L 55 L Respiratory Rate 16 16 Blood Pressure 96/46 L 109/53 L Pulse Oximetry 93 97 Oxygen Delivery Method Room Air Room Air MDM - Trauma MDM Narrative Medical decision making narrative: Head CT no acute intracranial pathology stable CT evaluation without significant changes. CT cervical spine, no acute cervical spine fracture or dislocation, bilateral stimulator electrodes multinodular enlarged thyroid gland 1.6 cm right thyroid nodule consider nonemergent sonographic characterization of not previously performed. Chest x-ray shows no acute change 74-year-old female history of Parkinson's. She is alert oriented she does not wish for labs or IV or fluids we did discuss she is hypotensive. She is DNR/DNI/comfort measures but states she had be okay with imaging but does not want any additional labs or needle pokes. Reviewed patient's imaging results. Patient is alert, oriented. She would like to return to her facility. Discharge Plan Departure Patient Disposition: Home Clinical Impression: Hematoma of scalp, Fall, Thyroid nodule Instructions: Closed Head Injury Activity Restrictions/Additional Instructions: Follow up as needed. Your imaging does show a multinodular enlarged thyroid gland with a a 1.6 cm right thyroid nodule discussed with your physician if you should follow up with the an outpatient ultrasound of your thyroid. You can take acetaminophen up to a 1000 mg every 6 hours as needed for pain. Please return for severe headaches, sudden changes to mentation, persistent vomiting, new changes to movement or other new or concerning changes. Prescriptions: No Action carbidopa-levodopa 25-100 mg tablet extended release 2 tab PO QID Rx Instructions: give 2 tablets four times a day: 0700, 1000, 1300, 1600 donepezil 10 mg tablet 10 mg PO DAILY carbidopa-levodopa 50-200 mg tablet extended release 1 tab PO BEDTIME sertraline 100 mg tablet 100 mg PO DAILY cetirizine 10 mg tablet 10 mg PO DAILY entacapone 200 mg tablet 100 mg PO QID Rx Instructions: give 0.5 tablet by mouth four times a day for Parkinson's omeprazole magnesium [Prilosec OTC] 20 mg Tablet,Delayed Release (Dr/Ec) 20 mg PO BID cranberry extract 250 mg Tablet 250 mg PO DAILY clonazepam 1 mg Tablet,Disintegrating 1 mg PO BID PRN (Reason: Anxiety or spasm) Qty: 14 0RF acetaminophen [Tylenol 8 Hour] 650 mg tablet extended release 650 mg PO Q8H PRN (Reason: fever or pain) Qty: 20 0RF ibuprofen 400 mg tablet 400 mg PO Q8H PRN (Reason: pain) Qty: 20 0RF clonazepam 1 mg Tablet 1 mg PO BEDTIME Rx Instructions: administer 30 minutes before bedtime baclofen 10 mg Tablet 10 mg PO BEDTIME pregabalin 150 mg Capsule 150 mg PO BEDTIME pregabalin 100 mg capsule 100 mg PO DIRECTED Qty: 60 0RF Rx Instructions: Take at 8am and 1300 mecobalamin (vitamin B12) 500 mcg tablet,chewable 500 mcg PO d-mannose 500 mg capsule 500 mg PO ondansetron 4 mg tablet,disintegrating 4 mg PO Q8H PRN (Reason: Nausea And Vomiting) Azo Cranberry 250 mg tablet,chewable 250 mg PO DAILY baclofen 10 mg tablet 10 mg PO Q8HR PRN (Reason: Muscle Spasticity) ascorbate calcium (vitamin C) 500 mg tablet 1 g PO BID omega-3 fatty acids 1,000 mg capsule 1,000 mg PO DAILY cholecalciferol (vitamin D3) 25 mcg (1,000 unit) capsule 25 mcg PO DAILY melatonin 5 mg capsule 5 mg PO BEDTIME ropinirole 1 mg tablet 1 mg PO DAILY Referrals: Miscellaneous,Doctor, MD [Primary Care Provider, Medical] Stand Alone Forms: Patient Portal/API
[2025-03-24 01:38] VITALS: BP 96/46; PULSE 57; RESP 16; TEMP 36.1; O2SAT 93; BMI 23.1
[2025-03-24 03:21] VITALS: BP 109/53; PULSE 55; RESP 16; O2SAT 97
== END 2025-03-24 03:51 | disposition home or self-care (01) ==
PROVIDERS: Emergency Provider Emergency Medicine
DX: S00.03XA Contusion of scalp, initial encounter (principal); E04.1 Nontoxic single thyroid nodule; W05.0XXA Fall from non-moving wheelchair, initial encounter; I95.9 Hypotension, unspecified
CPT/HCPCS: 70450; 71045; 72125; 99282; 99284

== ENCOUNTER → 2025-03-30 12:54 | Outpatient (CLI) | payer MEDICARE, MEDICAID, SELFPAY ==
[2024-10-04 15:12] VITALS: BMI 20.9
--- NOTE | 2025-03-30 12:57 | DI.US.S_ITS ---
PROCEDURE: US THYROID INDICATIONS: Nontoxic single thyroid nodule TECHNIQUE: Real-time scanning was performed of the thyroid gland, with image documentation. COMPARISON: None. FINDINGS: Thyroid: Right lobe measures 5.0 x 1.8 x 3.1 cm. Left lobe measures 4.9 x 2.6 x 2.0 cm. Isthmus is 0.3 cm thick. Echotexture is heterogeneous. Nodule number: 1 Location: Left inferior Size: 1.6 cm. Composition: Cystic Echogenicity: Anechoic Shape: wider than tall. Margins: Smooth Echogenic foci: Absent Total points: 0 ACR TI-RADS category: TI rads 1/benign. Nodule number: 2 Location: Left inferior and posterior Size: 1.3 cm. Composition: Predominantly solid Echogenicity: Hypoechoic Shape: wider than tall. Margins: Smooth Echogenic foci: Absent Total points: 4 ACR TI-RADS category: TI rads 4 IMPRESSION: 1. Left 1.3 cm TI rads 4 nodule. Recommend continued followup ultrasound as detailed below. 2. 1.6 cm left colloid cyst. ACR TI-RADS definitions and recommendations: TI-RADS 1 (benign): 0 points. FNA not needed. TI-RADS 2 (not suspicious): 2 points. FNA not needed. TI-RADS 3: 3 points. * FNA if 2.5 cm or larger, follow up if 1.5 cm or larger (at 1, 3, and 5 years). TI-RADS 4: 4-6 points. * FNA if 1.5 cm or larger, follow up if 1 cm or larger (at 1, 2, 3, and 5 years). TI-RADS 5: 7 points or more. * FNA if 1 cm or larger, follow up if 0.5 cm or larger (every year for 5 years). Dictated by: Ritesh ADAM Interpreted: Sebastian Borges MD on 03/30/2025 at 14:44 Transcribed by: ESSENCE on 03/30/2025 at 14:50 Approved by: Sebastian Borges M.D. on 03/30/2025 at 15:03
== END ==
LOC: US 12:57
PROVIDERS: Referring Provider Registered Nurse; Visit Provider Registered Nurse
DX: E04.2 Nontoxic multinodular goiter (principal); E04.1 Nontoxic single thyroid nodule
CPT/HCPCS: 76536

== ENCOUNTER 2025-04-26 15:51 | Emergency (ER) | payer MEDICARE, MEDICAID, SELFPAY ==
[2024-10-04 15:12] VITALS: BMI 20.9
[2025-04-26 16:14] VITALS: BP 112/53; PULSE 82; RESP 17; TEMP 37.1; O2SAT 94; BMI 23.9
== END 2025-04-26 17:09 | disposition left against medical advice (07) ==
PROVIDERS: Emergency Provider Emergency Medicine
DX: Z53.21 Procedure and treatment not carried out due to patient leaving prior to being seen by health care provider (principal)
CPT/HCPCS: 99281

== ENCOUNTER → 2025-04-29 06:16 | Outpatient (ROUT) | payer MEDICARE, MEDICAID, SELFPAY ==
[2024-10-04 15:12] VITALS: BMI 20.9
[2025-04-29 09:36] LABS: Hematocrit 41.0 % (36-46); Hemoglobin 13.7 g/dL (12.0-16.0); Mean Corpuscular HGB Conc 33.4 % (30-36); Mean Corpuscular Hemoglobin 31.1 PG (26-34); Mean Corpuscular Volume 93.1 fL (80-100); Platelet Count 201 X10^3/uL (150-400)
[2025-04-29 09:55] LABS: Blood Urea Nitrogen 25 mg/dL (7-17); Calcium 9.4 mg/dL (8.4-10.2); Carbon Dioxide 28 mmol/L (22-32); Chloride 106 mmol/L (98-107); Estimated Glomerular Filt Rate > 60 mL/min (>60); Glucose 131 mg/dL (70-99); HEMOLYSIS < 15 (0-50); Potassium 4.2 mmol/L (3.4-5.1); Sodium 141 mmol/L (137-145)
[2025-04-29 14:35] LABS: Thyroid Stimulating Hormone 1.52 uIU/mL (0.47-4.68)
[2025-04-29 15:11] LABS: Folate > 20.0 ng/mL (2.76-20.0); Vitamin B12 874 pg/mL (239-931)
== END ==
LOC: LAB 06:17
PROVIDERS: Visit Provider Registered Nurse
DX: G20.B2 Parkinson's disease with dyskinesia, with fluctuations (principal); F02.B18 Dementia in other diseases classified elsewhere, moderate, with other behavioral disturbance
CPT/HCPCS: 36415; 80048; 82607; 82746; 84443; 85027